=== PATIENT | female | born 1965 | race Caucasian/White ===

== ENCOUNTER 2017-07-22 15:50 | Observation (INO) ==
[2017-07-22] MEDS ORDERED: Aspirin 81 MG TAB.CHEW PO ONE (15:53)
--- NOTE | 2017-07-22 16:00 | Emergency Department Note ---
Disposition Clinical Impression: Chest pain of uncertain etiology Disposition: Home, Self-Care Condition: Fair Time of Disposition: 18:51 Chest Pain HPI - General Chief Complaint: ED Chest Pain Stated Complaint: CHEST PAIN Time Seen by Provider: 07/22/17 15:52 Source: patient Limitations: no limitations Vital Signs Reviewed: Yes Nursing Notes Reviewed: Yes - History of Present Illness HPI Narrative: Mrs. Barajas, a 51yo female, presents from home via EMS for evaluation of chest pain. Abrupt in onset just prior to arrival when she was having physical therapy at home. She stood up, felt dizzy, nauseous, vomited 1 (nonbloody, nonbilious), chills, and experienced a chest heaviness as well as a tingling sensation from her left sternum across her left chest down her left arm. The tingling sensation is reminiscent of her previous MN; stent placed 4 weeks ago. PMH: CHF, COPD on home breathing treatments not requiring home oxygen, GERD, hypertension, hyperlipidemia, chronic kidney disease, hypothyroidism, osteoporosis, fibromyalgia Antiplatelet: Plavix Anticoagulant: None ROS: Positive: As above Negative: Fever, chest palpitations, back pain, abdominal pain, headache Severity scale (1-10): 7 - Related Data Home Medications Medication Instructions Recorded Confirmed Aspirin Enteric Coated [Aspirin EC] 81 mg PO QAM 05/20/15 07/22/17 ClonazePAM [Klonopin] 1 mg PO BID 05/20/15 07/22/17 Cyanocobalamin (Vitamin B-12) 250 mcg PO DAILY 05/20/15 07/22/17 [Vitamin B-12] Escitalopram [Lexapro] 10 mg PO QAM 05/20/15 07/22/17 Esomeprazole Magnesium [Nexium] 40 mg PO QAM 05/20/15 07/22/17 Guaifenesin [Mucinex] 1,200 mg PO Q12H PRN 05/20/15 07/22/17 Loperamide [Imodium] 2 mg PO AD PRN 05/20/15 07/22/17 Losartan [Cozaar] 50 mg PO BID 05/20/15 07/22/17 Oxycodone HCl/Acetaminophen 1 tab PO Q8H PRN 05/20/15 07/22/17 [Percocet 7.5-325 mg Tablet] Promethazine [Phenergan] 25 mg PO Q6HR PRN 05/20/15 07/22/17 Tizanidine [Zanaflex] 4 mg PO TID PRN 05/20/15 07/22/17 Clopidogrel [Plavix] 75 mg PO DAILY 05/21/15 07/22/17 Potassium Chloride 20 meq PO QAM 08/19/15 07/22/17 Butalbital/Aspirin/Caffeine 1 tab PO Q6H PRN 07/01/16 07/22/17 [Fiorinal 50-325-40 mg Capsule] Gabapentin [Neurontin] 200 mg PO TID 07/01/16 07/22/17 Levothyroxine [Synthroid] 100 mcg PO QAM 07/01/16 07/22/17 Meclizine [Antivert] 25 mg PO BID PRN 07/01/16 07/22/17 Potassium Chloride [Klor-Con 10 meq PO QPM 07/01/16 07/22/17 Sprinkle] Rosuvastatin [Crestor] 20 mg PO HS 07/01/16 07/22/17 Previous Rx's Medication Instructions Recorded Albuterol Neb [AccuNeb] 1.25 mg IH TID PRN 28 Days #120 06/07/17 vial.neb Furosemide [Lasix] 40 mg PO DAILY #30 tablet 06/07/17 Levalbuterol HCl [Xopenex Neb] 1.25 mg IH Q6H PRN #30 vial.neb 06/07/17 cloNIDine HCl [Clonidine HCl] 0.1 mg PO TID #0 06/07/17 hydrALAZINE [HydrALAZINE] 50 mg PO Q8HR #90 tablet 06/07/17 hydroCHLOROthiazide 25 mg PO DAILY #30 tablet 06/07/17 [Hydrochlorothiazide] Allergies Allergy/AdvReac Type Severity Reaction Status Date / Time codeine Allergy Anaphylaxis Verified 02/17/16 11:36 olmesartan [From Benicar] AdvReac Nausea Verified 07/01/16 18:35 All systems ED: reviewed and negative except as stated. Review of Systems: As Per HPI Chest Pain PMH - Past Medical History Medical history: Reports: arthritis, CHF, COPD, fibromyalgia, GERD, GI bleed, hyperlipidemia, hypertension, osteoporosis, renal disease, thyroid disease, other Surgical history: Reports: angioplasty/stent, hysterectomy, orthopedic, other, other Psychiatric history: Reports: anxiety, depression - Social History Smoking Status: Former smoker Alcohol use: Reports: none Drug use: Reports: none Physical Exam Vital Signs Reviewed General: Patient is alert, oriented, and in mild respiratory distress-using mild accessory muscles. She appears fatigued and tired. HEENT: No facial asymmetry. Head is normocephalic and atraumatic. Oral mucosa moist. Trachea midline. Cardiovascular: Heart regular rate and rhythm without clicks, rubs, gallops, or murmurs. No JVD. PMI nondisplaced. Lateral radial pulses 2/4 equal. No pedal edema. Respiratory: Symmetric chest rise with good respiratory effort. Bilateral breath sounds are clear without wheezing, crackles, or rhonchi. Abdomen: Bowel sounds present normoactive x-4 quadrants. Abdomen is soft, nondistended, and nontender. No organomegaly noted. Neuro: GCS 15. Skin: Warm, dry, intact Psych: Patient's affect is appropriate for situation. - General Limitations: no limitations General appearance: alert, in no apparent distress Course Course Narrative: Symptoms concerning for ACS. After 3 sublingual nitroglycerin, patient's chest pain has resolved however the chest pressure persists. Next Initial troponin is 0.02; the upper limit of normal. EKG unremarkable compared to previous. Chest x-ray negative per radiology read. 18:09 Spoke with [facility], Dr. Perkins. She recommends against heparanizing at this time as patient's troponin is below upper limits of normal and there are no EKG changes. She is in agreement with aspirin therapy at this time. I discussed the patient with the admitting hospitalist, Dr. Kohli, who agrees to accept the patient for continued evaluation and management. Patient's chest pain remains gone however her chest heaviness persists. She is hypertensive in the 180s. Will begin nitro drip in an attempt to control her blood pressure eliminate her chest pressure. Patient notes, prior to the catheterization, she had a history of hypertension. Since catheterization, her blood pressure has been labile going both hypotensive and hypertensive. She has a headache with her hypertension today which is identical to previous hypertensive headaches. Vital Signs Temperature 98.5 F 07/22/17 15:51 Pulse Rate 65 07/22/17 15:51 Respiratory Rate 18 07/22/17 15:51 Blood Pressure 143/84 07/22/17 15:51 O2 Sat by Pulse Oximetry 99 07/22/17 15:51 Temperature 98.5 F 07/22/17 15:51 Pulse Rate 72 07/22/17 18:30 Respiratory Rate 18 07/22/17 18:30 Blood Pressure 115/100 07/22/17 18:30 O2 Sat by Pulse Oximetry 98 07/22/17 18:30 Oxygen Delivery Oxygen Delivery Nasal Cannula Chest Pain - Medical Records Medical records reviewed: Yes I reviewed the patient's medical records. - Lab Data Lab results reviewed: Yes I reviewed the patient's lab results. Result diagrams: 07/22/17 16:15 07/22/17 16:15 Lab Results 07/22/17 07/22/17 07/22/17 Range/Units 16:15 16:15 16:15 WBC 6.8 (4.3-11.1) K/mcL RBC 4.64 (3.82-4.97) M/mcL Hgb 14.4 (11.5-15.4) g/dL Hct 43.1 (35.3-44.9) % MCV 92.9 (83.0-100.0) fL MCH 31.0 (28.0-33.3) pg MCHC 33.4 (31.6-35.5) g/dL RDW 13.9 (11.5-14.5) % Plt Count 263 (140-400) K/mcL MPV 9.3 L (9.4-12.4) fL Immature Gran % 0.3 (0-4) % Seg Neutrophils % 48.2 % Lymphocytes % 44.2 % Monocytes % 4.9 % Eosinophils % 1.8 % Basophils % 0.6 % Neutrophils # 3.3 (1.6-8.9) K/mcL Lymphocytes # 3.0 (0.6-4.6) K/mcL Monocytes # 0.3 (0.0-1.3) K/mcL Eosinophils # 0.1 (0.0-0.6) K/mcL Basophils # 0.0 (0.0-0.2) K/mcL APTT 67.3 H (26.0-36.0) Seconds Sodium (136-145) mEq/L Potassium (3.5-4.5) mEq/L Chloride (98-109) mEq/L Carbon Dioxide (19-29) mEq/L BUN (7-20) mg/dL Creatinine (0.57-1.11) mg/dL Est GFR ( Amer) (> 60) Est GFR (Non-Af Amer) (> 60) BUN/Creatinine Ratio (6-26) Glucose (70-99) mg/dL Calculated Osmolality (280-300) Calcium (8.6-10.8) mg/dL Troponin I (0-0.03) ng/mL B-Natriuretic Peptide 16 (0-100) pg/mL 07/22/17 07/22/17 Range/Units 16:15 16:15 WBC (4.3-11.1) K/mcL RBC (3.82-4.97) M/mcL Hgb (11.5-15.4) g/dL Hct (35.3-44.9) % MCV (83.0-100.0) fL MCH (28.0-33.3) pg MCHC (31.6-35.5) g/dL RDW (11.5-14.5) % Plt Count (140-400) K/mcL MPV (9.4-12.4) fL Immature Gran % (0-4) % Seg Neutrophils % % Lymphocytes % % Monocytes % % Eosinophils % % Basophils % % Neutrophils # (1.6-8.9) K/mcL Lymphocytes # (0.6-4.6) K/mcL Monocytes # (0.0-1.3) K/mcL Eosinophils # (0.0-0.6) K/mcL Basophils # (0.0-0.2) K/mcL APTT (26.0-36.0) Seconds Sodium 140 (136-145) mEq/L Potassium 3.4 L (3.5-4.5) mEq/L Chloride 105 (98-109) mEq/L Carbon Dioxide 27 (19-29) mEq/L BUN 16 (7-20) mg/dL Creatinine 0.69 (0.57-1.11) mg/dL Est GFR ( Amer) > 60 (> 60) Est GFR (Non-Af Amer) > 60 (> 60) BUN/Creatinine Ratio 23 (6-26) Glucose 94 (70-99) mg/dL Calculated Osmolality 291 (280-300) Calcium 8.9 (8.6-10.8) mg/dL Troponin I 0.02 (0-0.03) ng/mL B-Natriuretic Peptide (0-100) pg/mL - Radiology Data Radiology results reviewed: Yes I reviewed the patient's radiology results. Chest X-Ray 07/22/17 15:53 IMPRESSION: No acute process. D/ / Jasmin Craven MD / Jasmin Craven MD Interpreting Provider: Jasmin Craven MD - EKG Data EKG attestation: Yes I reviewed and interpreted this EKG. EKG results narrative: EKG dated 22 July 2017 at 15:56 interpreted as sinus rhythm with a rate of 62. Normal intervals DE 169, QRS 82, QT/QTC 407/413. Normal intervals. Low amplitude T waves in precordial leads. T-wave inversion in V1 present on comparative EKG. Nonspecific ST-T changes. Compared to previous EKG dated shows no acute ischemic changes. Heart Score - Score History: Moderately Suspicious EKG: Normal Age: 45-65 Risk Factors: Equal/Greater than 3 risk factor or history of atherosclerotic disease Troponin: Less than normal limit HEART Score Total: 4 Attestation Statement - Attestation Attestation: I examined this patient and my medical decision-making was reviewed with the Resident Physician. I agree with the documented findings, disposition and treatment plan as described except to the extent set forth below. Patient to the ED by a chest pressure. Short of breath and nauseated with it. History coronary disease with stent placement a few weeks ago. On exam she is uncomfortable and in no distress. Heart regular and lungs are clear. Plan. Cardiac workup. Patient has a few anteroseptal ST depressions. Posterior EKG performed with no elevations. Will admit.
[2017-07-22] MEDS: Nitroglycerin 0.4 MG TAB.SUBL SL ONE ×3 (16:03→16:32)
[2017-07-22 16:36] LABS: Basophils % 0.6 %; Eosinophils # 0.1 K/mcL (0.0-0.6); Eosinophils % 1.8 %; Hematocrit 43.1 % (35.3-44.9); Hemoglobin 14.4 g/dL (11.5-15.4); Immature Granulocytes % 0.3 % (0-4); Lymphocytes % 44.2 %; Mean Corpuscular HGB Conc 33.4 g/dL (31.6-35.5); Mean Corpuscular Volume 92.9 fL (83.0-100.0); Mean Platelet Volume 9.3 fL (9.4-12.4); Monocytes # 0.3 K/mcL (0.0-1.3); Monocytes % 4.9 %; Neutrophils # 3.3 K/mcL (1.6-8.9); Platelet Count 263 K/mcL (140-400); Red Blood Count 4.64 M/mcL (3.82-4.97); Red Cell Distribution Width 13.9 % (11.5-14.5); Segmented Neutrophils % 48.2 %
[2017-07-22 16:49] LABS: BUN/Creatinine Ratio 23 (6-26); Blood Urea Nitrogen 16 mg/dL (7-20); Calcium 8.9 mg/dL (8.6-10.8); Carbon Dioxide 27 mEq/L (19-29); Chloride 105 mEq/L (98-109); Glucose 94 mg/dL (70-99); Osmolality,Calculated 291 (280-300); Potassium 3.4 mEq/L (3.5-4.5); Sodium 140 mEq/L (136-145); eGFR For African Americans > 60 (> 60); eGFR For Non-African Americans > 60 (> 60)
[2017-07-22] MEDS ORDERED: Nitroglycerin 25 MG/250 ML INFUS..BTL IVC SCH ×2 (18:15→18:45)
[2017-07-23] MEDS: *HR* OxyCODONE/APAP 7.5/325 TABLET PO PRN ×3 (00:29→21:36)
[2017-07-23] MEDS: Acetaminophen/Butalbital/CaffeineTABLET PO PRN (00:29)
[2017-07-23] MEDS: clonazePAM 1 MG TABLET PO PRN ×4 (01:32→21:36)
--- NOTE | 2017-07-23 02:09 | Internal Med History&Physical ---
Date of Encounter: 07/23/17 Time of Encounter: 11:00 Assessment and Plan (1) Chest pain Current visit: No Status: Acute -First set of cardiac biomarkers are negative. -Will monitor on telemetry -Stress test ordered for the morning Qualifiers: Chest pain type: unspecified Qualified Code(s): R07.9 - Chest pain, unspecified (2) Hypertension Current visit: No Status: Chronic -Blood pressures controlled; continue home medications. Qualifiers: Hypertension type: essential hypertension Qualified Code(s): I10 - Essential (primary) hypertension (3) GERD (gastroesophageal reflux disease) Current visit: No Status: Chronic -Continue home PPI. Qualifiers: Esophagitis presence: esophagitis presence not specified Qualified Code(s) : K21.9 - Gastro-esophageal reflux disease without esophagitis (4) Hyperlipidemia Current visit: No Status: Chronic -Continue statin. Qualifiers: Hyperlipidemia type: unspecified Qualified Code(s): E78.5 - Hyperlipidemia , unspecified (5) Hypothyroidism Current visit: No Status: Chronic -Continue home dose of levothyroxine. Qualifiers: Hypothyroidism type: unspecified Qualified Code(s): E03.9 - Hypothyroidism , unspecified (6) Lupus Current visit: No Status: Chronic Stable; continue to monitor. Qualifiers: Systemic lupus erythematosus organ involvement: unspecified Qualified Code( s): M32.9 - Systemic lupus erythematosus, unspecified (7) COPD (chronic obstructive pulmonary disease) Current visit: No Status: Acute -Stable; continue home medications Qualifiers: Emphysema type: unspecified Qualified Code(s): J43.9 - Emphysema, unspecified (8) DVT prophylaxis Current visit: No Status: Acute -Subcutaneous heparin Internal Medicine - H&P: HPI Chief complaint: Chest pain Admitted From: Home Plans for Post Hospital Care: Home History of present illness: Patient is a 51-year-old female with past medical history significant for ischemic cardiomyopathy, hypertension, COPD, CKD, hypothyroid and SLE who presents to the ER on 07/22/17 with chest pain. Patient reports of having substernal chest pressure but without any radiation or provoking/relieving factors. She also denies any associated symptoms. Patient reports symptoms are similar to her last ME approximately 4 weeks ago where she had a stent placed. Patient called EMS and was brought in to the emergency room for further evaluation. In the ER, first set of cardiac biomarkers were negative and chest x-ray showed no acute cardiopulmonary findings. Patient will be admitted to the medical floor for ACS rule out. Past Med Surg Social Fam HX - Past Medical History Medical history: arthritis, CHF, COPD, fibromyalgia, GERD, GI bleed, hyperlipidemia, hypertension, osteoporosis, renal disease, thyroid disease, other Psychiatric history: anxiety, depression - Past Surgical History Surgical History: angioplasty/stent, hysterectomy, orthopedic, other, other - Social History Smoking Status: Former smoker Smokeless Tobacco Status: No Alcohol use: none Drug use: none - Family History Father Living Status: Mother Adopted: No Family Member Ethnicity: Non- Living Status: Still Living Hx Family Cardiac Disorders: Yes (stroke) Hx Family Respiratory Disorders: No Hx Family Cancer: Yes (Skin) Hx Family GI Disorders: Yes (diverticulosis) Hx Family Endocrine Disorder: Yes (lupus, addisons) Hx Family Neuromuscular Disorders: No Hx Family Neurologic Disorders: No Hx Family HEENT Disorders: No Hx Family Autoimmune Disorders: Yes (Rheumatory Arthritis, Seasonal Allergies, Lupus) Internal Medicine - H&P: Meds Aspirin Enteric Coated [Aspirin EC] 81 mg PO QAM 05/20/15 [History] ClonazePAM [Klonopin] 1 mg PO BID 05/20/15 [History] Cyanocobalamin (Vitamin B-12) [Vitamin B-12] 250 mcg PO DAILY 05/20/15 [History] Escitalopram [Lexapro] 10 mg PO QAM 05/20/15 [History] Esomeprazole Magnesium [Nexium] 40 mg PO QAM 05/20/15 [History] Guaifenesin [Mucinex] 1,200 mg PO Q12H PRN 05/20/15 [History] Loperamide [Imodium] 2 mg PO AD PRN 05/20/15 [History] Losartan [Cozaar] 50 mg PO BID 05/20/15 [History] Oxycodone HCl/Acetaminophen [Percocet 7.5-325 mg Tablet] 1 tab PO Q8H PRN [History] Promethazine [Phenergan] 25 mg PO Q6HR PRN 05/20/15 [History] Tizanidine [Zanaflex] 4 mg PO TID PRN 05/20/15 [History] Clopidogrel [Plavix] 75 mg PO DAILY 05/21/15 [History] Potassium Chloride 20 meq PO QAM 08/19/15 [History] Butalbital/Aspirin/Caffeine [Fiorinal 50-325-40 mg Capsule] 1 tab PO Q6H PRN [History] Gabapentin [Neurontin] 200 mg PO TID 07/01/16 [History] Levothyroxine [Synthroid] 100 mcg PO QAM 07/01/16 [History] Meclizine [Antivert] 25 mg PO BID PRN 07/01/16 [History] Potassium Chloride [Klor-Con Sprinkle] 10 meq PO QPM 07/01/16 [History] Rosuvastatin [Crestor] 20 mg PO HS 07/01/16 [History] Albuterol Neb [AccuNeb] 1.25 mg IH TID PRN 28 Days #120 vial.neb 06/07/17 [Rx] Furosemide [Lasix] 40 mg PO DAILY #30 tablet 06/07/17 [Rx] Levalbuterol HCl [Xopenex Neb] 1.25 mg IH Q6H PRN #30 vial.neb 06/07/17 [Rx] cloNIDine HCl [Clonidine HCl] 0.1 mg PO TID #0 06/07/17 [Rx] hydrALAZINE [HydrALAZINE] 50 mg PO Q8HR #90 tablet 06/07/17 [Rx] hydroCHLOROthiazide [Hydrochlorothiazide] 25 mg PO DAILY #30 tablet 06/07/17 [Rx ] Amitriptyline [Elavil] 25 mg PO HS 07/23/17 [History] 3 Allergy/AdvReac Type Severity Reaction Status Date / Time codeine Allergy Anaphylaxis Verified 02/17/16 11:36 olmesartan [From Benicar] AdvReac Nausea Verified 07/01/16 18:35 All Systems PM: A 10-system review of systems was performed and is negative for pertinent findings except as documented above in the HPI. - Constitutional Vitals: Temp Pulse Resp BP Pulse Ox 97.5 F L 116 16 116/79 97 07/23/17 01:29 07/23/17 01:29 07/23/17 01:29 07/23/17 01:29 07/23/17 01:29 General appearance: Present: A&O X 3 - Head Head exam: Present: atraumatic, normocephalic - ENT ENT exam: Present: mucous membranes moist - Respiratory Respiratory exam: Present: CTAB. Absent: accessory muscle use, rales, rhonchi, wheezes - Cardiovascular Cardiovascular exam: Present: RRR, +S1, +S2. Absent: diastolic murmur, gallop, rubs, systolic murmur - GI/Abdominal GI/Abdominal exam: Present: normal bowel sounds, soft, no peritoneal signs. Absent: distended, tenderness - Extremities Exam Extremities exam: Absent: pedal edema - Neurological Exam Neurological exam: Present: oriented X3 - Psychiatric Psychiatric exam: Present: normal mood - Skin Skin exam: Present: normal color Internal Med - H&P Results - Labs CBC & Chem 7: 07/22/17 16:15 07/22/17 16:15 Labs: Cardiac Enzymes 07/22/17 Range/Units 22:37 Troponin I 0.01 (0-0.03) ng/mL
[2017-07-23] MEDS ORDERED: Naloxone 0.4 MG/ML INJ IVP PRN (02:16)
[2017-07-23] MEDS ORDERED: *HR* OxyCODONE/APAP 7.5/325 TABLET PO PRN (02:30)
[2017-07-23] MEDS ORDERED: Albuterol Neb 1.25 MG/3 ML VIAL IH PRN (02:30)
[2017-07-23] MEDS: Levalbuterol Neb 1.25 MG/3 ML IH SCH ×4 (03:50→21:33)
[2017-07-23 05:56] LABS: Basophils # 0.1 K/mcL (0.0-0.2); Basophils % 1.1 %; Eosinophils # 0.1 K/mcL (0.0-0.6); Eosinophils % 2.7 %; Hematocrit 41.3 % (35.3-44.9); Hemoglobin 13.4 g/dL (11.5-15.4); Immature Granulocytes % 0.2 % (0-4); Lymphocytes % 57.3 %; Mean Corpuscular HGB Conc 32.4 g/dL (31.6-35.5); Mean Corpuscular Hemoglobin 30.4 pg (28.0-33.3); Mean Corpuscular Volume 93.7 fL (83.0-100.0); Mean Platelet Volume 9.3 fL (9.4-12.4); Monocytes # 0.4 K/mcL (0.0-1.3); Neutrophils # 1.7 K/mcL (1.6-8.9); Platelet Count 223 K/mcL (140-400); Red Blood Count 4.41 M/mcL (3.82-4.97); Red Cell Distribution Width 13.9 % (11.5-14.5); Segmented Neutrophils % 31.7 %
[2017-07-23 06:21] LABS: BUN/Creatinine Ratio 24 (6-26); Blood Urea Nitrogen 17 mg/dL (7-20); Calcium 8.6 mg/dL (8.6-10.8); Carbon Dioxide 27 mEq/L (19-29); Chloride 106 mEq/L (98-109); Glucose 100 mg/dL (70-99); Osmolality,Calculated 290 (280-300); Potassium 3.6 mEq/L (3.5-4.5); Sodium 139 mEq/L (136-145); eGFR For African Americans > 60 (> 60); eGFR For Non-African Americans > 60 (> 60)
[2017-07-23] MEDS ORDERED: clonazePAM 1 MG TABLET PO SCH (09:00)
[2017-07-23] MEDS: hydroCHLOROthiazide 25 MG TABLET PO SCH (09:04)
[2017-07-23] MEDS: hydrALAZINE 25 MG TABLET PO SCH ×2 (09:04→16:36)
[2017-07-23] MEDS: Furosemide 40 MG TABLET PO SCH (09:04)
[2017-07-23] MEDS: Aspirin Enteric Coated 81 MG Tablet PO SCH (09:04)
[2017-07-23] MEDS: Gabapentin 100 MG CAPSULE PO SCH ×3 (09:04→21:33)
[2017-07-23] MEDS: cloNIDine HCl 0.1 MG TABLET PO SCH ×2 (09:04→14:30)
--- NOTE | 2017-07-23 15:19 | Cardiology Consult Note ---
Date of Encounter: 07/23/17 Time of Encounter: 15:18 Assessment and Plan (1) Chest pain Current Visit: No Status: Acute Atypical chest pain symptoms. S/p recent PCI to the RCA. Moderate disease remaining. Troponin negative. EKG with no acute changes. Recommend optimizing medical therapy. No further cardiac testing. Add norvasc and wean off clonidine. No imdur due to chronic headaches and vertigo. Continue asa, statin, and plavix. Not on beta-errol due to bradycardia. Qualifiers: Chest pain type: unspecified Qualified Code(s): R07.9 - Chest pain, unspecified (2) CAD (coronary artery disease) Current Visit: Yes Status: Acute S/p PCI to the RCA 05/2017. Moderate non-obstructive disease remaining. Continue asa, plavix, statin, and bb. Qualifiers: Coronary Disease-Associated Artery/Lesion type: [place] artery [place] vs. transplanted heart: [place] heart Associated angina: angina presence unspecified Qualified Code(s): I25.10 - Atherosclerotic heart disease of [place] coronary artery without angina pectoris (3) Hypertension Current Visit: No Status: Chronic Recent stay for malignant hypertension. Now normo-tensive to hypotensive. Adding norvasc for anti-anginal effects. Will decrease clonidine due to low HR in the upper 40's at times. Consider discontinuing by weaning off. Change to BID. Qualifiers: Hypertension type: essential hypertension Qualified Code(s): I10 - Essential (primary) hypertension (4) Bradycardia Current Visit: No Status: Chronic Known bradycardia seen during previous admission. She does have h/o dizziness for many years. BB held and high dose clonidine decreased. Recommend weaning of clonidine. Telemetry review shows avg HR 56 bpm. min HR 46 bpm at 0256 am. No pauses. Continue to monitor. Out-pt f/u. Discussion w patient/family: The assessment and plan as outlined above was discussed with the patient and/or family members who expressed understanding and agreement. All questions were answered. Thank you for involving us in the care of your patient. Please call with any questions. History of Present Illness Consult date: 07/23/17 Requesting physician: Felicia Gao Consult reason: chest pain Chief complaint: Pupil dilation, dizziness, chest pain History of present illness: Ms. Barajas is a 51 year old female with a h/o recent NSTEMI s/p PCI to her RCA , malignant HTN, CKD, SLE, COPD, and hypothyroidism who presented with the c/o dizziness and left shoulder pain. She was working with physical therapy when she became lightheaded. Her home health nurse and reported that she looked unwell. Her pupils were very large. She reports vision changes. Stated that she has lost her peripheral vision. She states that her dizziness and vision changes are chronic. She has frequent migraines and vertigo. She takes fiorcet and percocet. During her stay she noted left shoulder pain that was intermittent over the past week. The pain is not like her recent [place]. Pain occurs at rest. Denies aggravating factors. Pain only lasts couple of seconds. Recent cardiac testing: [facility] completed 05/2017- S/p PTCA and Maia to the RCA. 50% stenosis in the mLAD remaining. TTE 05/25/17-LVEF 65%. The LV apex is akinetic. All other myocardial segments demonstrate normal wall motion. Mild left ventricular diastolic dysfunction. Normal right ventricular size and function. No significant valvular dysfunction. Past Med Surg Social Fam HX - Past Medical History Attestation: Yes The following information was validated with the patient. Medical history: arthritis, CHF, COPD, fibromyalgia, GERD, GI bleed, hyperlipidemia, hypertension, osteoporosis, renal disease, thyroid disease, other Psychiatric history: anxiety, depression - Past Surgical History Surgical History: angioplasty/stent, hysterectomy, orthopedic, other, other - Social History Smoking Status: Former smoker Smokeless Tobacco Status: No Alcohol use: none Drug use: none - Family History Father Living Status: Mother Adopted: No Family Member Ethnicity: Non- Living Status: Still Living Hx Family Cardiac Disorders: Yes (stroke) Hx Family Respiratory Disorders: No Hx Family Cancer: Yes (Skin) Hx Family GI Disorders: Yes (diverticulosis) Hx Family Endocrine Disorder: Yes (lupus, addisons) Hx Family Neuromuscular Disorders: No Hx Family Neurologic Disorders: No Hx Family HEENT Disorders: No Hx Family Autoimmune Disorders: Yes (Rheumatory Arthritis, Seasonal Allergies, Lupus) Medications and Allergies Aspirin Enteric Coated [Aspirin EC] 81 mg PO QAM 05/20/15 [History] ClonazePAM [Klonopin] 1 mg PO TID 05/20/15 [History] Cyanocobalamin (Vitamin B-12) [Vitamin B-12] 250 mcg PO DAILY 05/20/15 [History] Escitalopram [Lexapro] 10 mg PO QAM 05/20/15 [History] Esomeprazole Magnesium [Nexium] 40 mg PO QAM 05/20/15 [History] Guaifenesin [Mucinex] 1,200 mg PO Q12H PRN 05/20/15 [History] Loperamide [Imodium] 2 mg PO AD PRN 05/20/15 [History] Losartan [Cozaar] 50 mg PO BID 05/20/15 [History] Oxycodone HCl/Acetaminophen [Percocet 7.5-325 mg Tablet] 1 tab PO Q8H PRN [History] Promethazine [Phenergan] 25 mg PO Q6HR PRN 05/20/15 [History] Tizanidine [Zanaflex] 4 mg PO TID PRN 05/20/15 [History] Clopidogrel [Plavix] 75 mg PO DAILY 05/21/15 [History] Potassium Chloride 20 meq PO QAM 08/19/15 [History] Butalbital/Aspirin/Caffeine [Fiorinal 50-325-40 mg Capsule] 1 tab PO Q6H PRN [History] Gabapentin [Neurontin] 200 mg PO TID 07/01/16 [History] Levothyroxine [Synthroid] 100 mcg PO QAM 07/01/16 [History] Meclizine [Antivert] 25 mg PO BID PRN 07/01/16 [History] Potassium Chloride [Klor-Con Sprinkle] 10 meq PO QPM 07/01/16 [History] Rosuvastatin [Crestor] 20 mg PO HS 07/01/16 [History] Albuterol Neb [AccuNeb] 1.25 mg IH TID PRN 28 Days #120 vial.neb 06/07/17 [Rx] Furosemide [Lasix] 40 mg PO DAILY #30 tablet 06/07/17 [Rx] Levalbuterol HCl [Xopenex Neb] 1.25 mg IH Q6H PRN #30 vial.neb 06/07/17 [Rx] cloNIDine HCl [Clonidine HCl] 0.1 mg PO TID #0 06/07/17 [Rx] hydrALAZINE [HydrALAZINE] 50 mg PO Q8HR #90 tablet 06/07/17 [Rx] hydroCHLOROthiazide [Hydrochlorothiazide] 25 mg PO DAILY #30 tablet 06/07/17 [Rx ] Amitriptyline [Elavil] 25 mg PO HS 07/23/17 [History] 3 Allergy/AdvReac Type Severity Reaction Status Date / Time codeine Allergy Anaphylaxis Verified 02/17/16 11:36 olmesartan [From Benicar] AdvReac Nausea Verified 07/01/16 18:35 All Systems Review: A 10-system review of systems was performed and is negative for pertinent findings except as documented above in the HPI. Physical Examination Vital Signs, Last 4 Hours Temp Pulse Resp BP Pulse Ox 07/23/17 15:00 97.8 F 51 16 120/78 97 General: Conversant, No Apparent Distress HEENT: Atraumatic, Normocephaly, Mucus Membranes Moist Neck: No JVD, Normal carotid pulses Cardiac: Reg Rate and Rhythm, Normal S1 and S2, No Murmur Lungs: Normal Breath Sounds, No Wheeze, Rales, Rhonchi Neuro: Alert and responsive, No focal deficits noted Abdomen: Soft, Non-Tender Skin: No rashes noted on visualized skin Musculoskeletal: No Chest Wall Tenderness Extremities: No Clubbing, No Cyanosis, No Edema, Normal Pulses Results 07/23/17 05:41 07/23/17 05:41 Lab Results 07/22/17 07/23/17 07/23/17 22:37 02:05 05:41 WBC 5.3 Hgb 13.4 Hct 41.3 Plt Count 223 Sodium Potassium Chloride Carbon Dioxide BUN Creatinine Glucose Calcium Troponin I 0.01 0.00 07/23/17 05:41 WBC Hgb Hct Plt Count Sodium 139 Potassium 3.6 Chloride 106 Carbon Dioxide 27 BUN 17 Creatinine 0.70 Glucose 100 H Calcium 8.6 Troponin I - Imaging and Cardiology Echo: report reviewed Cardiac cath: report reviewed - EKG Interpretation EKG results cardiology: personally reviewed (Sr with no acute ST changes) Consult Discharge Plan - Plan Referrals: Shelton Galaviz MD [Primary Care Provider] -
--- NOTE | 2017-07-23 15:39 | Internal Med Progress Note ---
Date of Encounter: 07/23/17 Time of Encounter: 10:30 - Assessment and plan (1) Chest pain Current Visit: Yes Status: Acute Assessment and plan: Pt reports chest pain last night while at home, returned to the ED for evaluation. States that the pain is the same as her [place] 4 weeks ago. Pt had stent placed at that time. Pain is in left inferior chest/rib area and is reproducible with palpation, inspiration and movement. Stress test was ordered, however, pt takes Fiorcet and states that she did not think that she would be able to be without it for 24 hours to have the stress test. Cardiology was consulted and recommend optimizing therapy and no further testing. They have added norvasc and will wean her off of the Clonidine The recommend no Imdur due to chronic headaches and vertigo. Continue ASA, statin, and Plavix, no BB due to bradycardia. Will keep pt overnight to monitor vitals and effectiveness of medications. I have given her one dose of Ibuprofen for chest wall pain. Continue telemetry Chest X-Ray 07/22/17 15:53 IMPRESSION: No acute process. D/ / Jasmin Craven MD / Jasmin Craven MD Interpreting Provider: Jasmin Craven MD Qualifiers: Chest pain type: unspecified Qualified Code(s): R07.9 - Chest pain, unspecified (2) Hypertension Current Visit: Yes Status: Chronic Assessment and plan: Well controlled. Continue home medications. Continue to monitor. Qualifiers: Hypertension type: essential hypertension Qualified Code(s): I10 - Essential (primary) hypertension (3) Bradycardia Current Visit: Yes Status: Chronic Assessment and plan: Chronic bradycardia. Cardiology on board. Continue telemetry. (4) CAD (coronary artery disease) Current Visit: Yes Status: Acute Assessment and plan: REcent stent 4 weeks ago. Continue telemetry. Plan as above. Qualifiers: Coronary Disease-Associated Artery/Lesion type: [place] artery [place] vs. transplanted heart: [place] heart Associated angina: angina presence unspecified Qualified Code(s): I25.10 - Atherosclerotic heart disease of [place] coronary artery without angina pectoris (5) COPD (chronic obstructive pulmonary disease) Current Visit: Yes Status: Acute Assessment and plan: No acute exacerbation. Continue 02 as needed to maintain sats > 92%, nebulizers. Pulse ox with vitals. Lungs are clear, diminished, poor inspiratory effort due to pain with inspiration. Qualifiers: Emphysema type: unspecified Qualified Code(s): J43.9 - Emphysema, unspecified (6) DVT prophylaxis Current Visit: Yes Status: Acute Assessment and plan: Early ambulation - Time Spent With Patient less than 15 minutes - Subjective Interval history: Pt was seen and assessed at bedside at 1030. Pt reports left lower chest/rib pain that is reproducible with palpation, movement, and deep inspiration. She reports associated SOB with pain. She denies recent or new cough, denies fever, but reports chills. She denies n/v/d, abdominal pain. She reports chronic headache that she takes Fiorcet for and she is concerned aht she will not be able to tolerate headache since she cannot have Fiorcet prior to stress test. - Constitutional Vitals: Temp Pulse Resp BP Pulse Ox 97.8 F 51 16 120/78 97 07/23/17 15:00 07/23/17 15:00 07/23/17 15:00 07/23/17 15:00 07/23/17 15:00 General appearance: Present: cooperative, A&O X 3, pleasant, no acute distress, answers questions appropriately - Head Head exam: Present: atraumatic, normal inspection, normocephalic - Eye Eye exam: Present: normal appearance, conjuntiva pink, sclera anicteric - Neck Neck exam general surgery: Present: supple, trachea midline. Absent: lymphadenopathy, tenderness - Respiratory Respiratory exam: Present: chest wall tenderness, decreased breath sounds, CTAB. Absent: accessory muscle use, rales, rhonchi, wheezes - Cardiovascular Cardiovascular exam: Present: RRR, +S1, +S2. Absent: diastolic murmur, gallop, rubs, systolic murmur - GI/Abdominal GI/Abdominal exam: Present: normal bowel sounds, soft, no peritoneal signs. Absent: distended, hepatomegaly, tenderness - Extremities Exam Extremities exam: Present: normal capillary refill, normal inspection, warm, radial pulses palpable and symmetrical. Absent: calf tenderness, cyanotic, pedal edema - Neurological Exam Neurological exam: Present: alert, oriented X3, no focal deficits. Absent: facial droop, speech deficit - Skin Skin exam: Present: dry, intact, normal color, warm. Absent: rash Internal Medicine: Result - Labs CBC & Chem 7: 07/23/17 05:41 07/23/17 05:41 Labs: Short CBC 07/23/17 Range/Units 05:41 WBC 5.3 (4.3-11.1) K/mcL Hgb 13.4 (11.5-15.4) g/dL Hct 41.3 (35.3-44.9) % Plt Count 223 (140-400) K/mcL Neutrophils # 1.7 (1.6-8.9) K/mcL BMP 07/23/17 05:41 Sodium 139 Potassium 3.6 Chloride 106 Carbon Dioxide 27 BUN 17 Creatinine 0.70 Glucose 100 H Calcium 8.6 Cardiac Enzymes 07/22/17 07/23/17 Range/Units 22:37 02:05 Troponin I 0.01 0.00 (0-0.03) ng/mL Consult Discharge Plan - Plan Referrals: Shelton Galaviz MD [Primary Care Provider] -
[2017-07-23] MEDS ORDERED: Ibuprofen 600 MG TABLET PO ONE (15:41)
--- NOTE | 2017-07-23 16:35 | Electrocardiograph Report ---
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
[2017-07-23] MEDS: amLODIPine 5 MG TABLET PO SCH (16:37)
[2017-07-24] MEDS: hydrALAZINE 25 MG TABLET PO SCH ×2 (00:26→09:45)
[2017-07-24] MEDS: Levalbuterol Neb 1.25 MG/3 ML IH SCH ×2 (04:59→10:57)
[2017-07-24] MEDS ORDERED: Regadenoson 0.4 MG/5 ML SYRINGE IVP ONE (06:21)
[2017-07-24 06:55] VITALS: BP 116/81
[2017-07-24] MEDS ORDERED: cloNIDine HCl 0.1 MG TABLET PO SCH (09:00)
--- NOTE | 2017-07-24 09:24 | Discharge Summary ---
Date of Encounter: 07/24/17 Time of Encounter: 08:25 - Discharge Diagnosis (1) Chest pain Priority: Primary Status: Acute Comments: Pt reports chest pain last night while at home, returned to the ED for evaluation. States that the pain is the same as her [place] 4 weeks ago. Pt had stent placed at that time. EKG was normal sinus rhythm with a rate of 62, OK interval 169, QRS 82, QTC 413. Chest x-ray was negative for any acute process. Troponins were negative 3. Pain is in left inferior chest/rib area and is reproducible with palpation, inspiration and movement. Stress test was ordered, however, pt takes Fiorcet and states that she did not think that she would be able to be without it for 24 hours to have the stress test. Cardiology was consulted and recommend optimizing therapy and no further testing. Pt reports that pain is "much better today" and she feels that the Norvasc has helped. 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 She has a follow up appointment with cardiology on 08/18. Per Cardiology: Atypical chest pain symptoms. S/p recent PCI to the RCA. Moderate disease remaining. Troponin negative. EKG with no acute changes. Recommend optimizing medical therapy. No further cardiac testing. Add norvasc 5mg po daily and wean off Clonidine, decreased to 0.1mg po BID. No imdur due to chronic headaches and vertigo. Continue asa, statin, and plavix. Not on beta-errol due to bradycardia. Chest X-Ray 07/22/17 15:53 IMPRESSION: No acute process. D/ / Jasmin Craven MD / Jasmin Craven MD Interpreting Provider: Jasmin Craven MD Qualifiers: Chest pain type: unspecified Qualified Code(s): R07.9 - Chest pain, unspecified (2) Hypertension Priority: Primary Status: Chronic Comments: Blood pressures been well controlled. We will be weaning her off the clonidine slowly, she has added Norvasc laterally for blood pressure control but for antianginal effect as well. She will continue her other home medications. Qualifiers: Hypertension type: essential hypertension Qualified Code(s): I10 - Essential (primary) hypertension (3) Bradycardia Priority: Secondary Status: Chronic Comments: She does not on a errol at this time due to bradycardia. Clonidine is being weaned. Pulse has increased, she is in the 60s now. (4) CAD (coronary artery disease) Priority: Secondary Status: Chronic Comments: Patient states the chest pain is significantly better today. Recent stent 4 weeks ago. Cardiology recommends no further testing at this time. She will follow up in the office with Dr. Fisher on August 18. Qualifiers: Coronary Disease-Associated Artery/Lesion type: [place] artery [place] vs. transplanted heart: [place] heart Associated angina: angina presence unspecified Qualified Code(s): I25.10 - Atherosclerotic heart disease of [place] coronary artery without angina pectoris (5) COPD (chronic obstructive pulmonary disease) Priority: Secondary Status: Chronic Comments: No acute exacerbation this visit. O2 sats are stable. Lungs are clear, diminished, increased inspiratory effort today due to decreased pain. She is in no distress, there is no wheezing, rales, rhonchi. Continue normal medications at home. Qualifiers: Emphysema type: unspecified Qualified Code(s): J43.9 - Emphysema, unspecified (6) DVT prophylaxis Priority: Secondary Status: Acute Comments: Early ambulation. - Discharge Medications Prescriptions: amLODIPine [Norvasc] 5 mg PO DAILY #30 tablet Home Medications: Aspirin Enteric Coated [Aspirin EC] 81 mg PO QAM 05/20/15 [History] ClonazePAM [Klonopin] 1 mg PO TID 05/20/15 [History] Cyanocobalamin (Vitamin B-12) [Vitamin B-12] 250 mcg PO DAILY 05/20/15 [History] Escitalopram [Lexapro] 10 mg PO QAM 05/20/15 [History] Esomeprazole Magnesium [Nexium] 40 mg PO QAM 05/20/15 [History] Guaifenesin [Mucinex] 1,200 mg PO Q12H PRN 05/20/15 [History] Loperamide [Imodium] 2 mg PO AD PRN 05/20/15 [History] Losartan [Cozaar] 50 mg PO BID 05/20/15 [History] Oxycodone HCl/Acetaminophen [Percocet 7.5-325 mg Tablet] 1 tab PO Q8H PRN [History] Promethazine [Phenergan] 25 mg PO Q6HR PRN 05/20/15 [History] Tizanidine [Zanaflex] 4 mg PO TID PRN 05/20/15 [History] Clopidogrel [Plavix] 75 mg PO DAILY 05/21/15 [History] Potassium Chloride 20 meq PO QAM 08/19/15 [History] Butalbital/Aspirin/Caffeine [Fiorinal 50-325-40 mg Capsule] 1 tab PO Q6H PRN [History] Gabapentin [Neurontin] 200 mg PO TID 07/01/16 [History] Levothyroxine [Synthroid] 100 mcg PO QAM 07/01/16 [History] Meclizine [Antivert] 25 mg PO BID PRN 07/01/16 [History] Potassium Chloride [Klor-Con Sprinkle] 10 meq PO QPM 07/01/16 [History] Rosuvastatin [Crestor] 20 mg PO HS 07/01/16 [History] Albuterol Neb [AccuNeb] 1.25 mg IH TID PRN 28 Days #120 vial.neb 06/07/17 [Rx] Furosemide [Lasix] 40 mg PO DAILY #30 tablet 06/07/17 [Rx] Levalbuterol HCl [Xopenex Neb] 1.25 mg IH Q6H PRN #30 vial.neb 06/07/17 [Rx] hydrALAZINE [HydrALAZINE] 50 mg PO Q8HR #90 tablet 06/07/17 [Rx] hydroCHLOROthiazide [Hydrochlorothiazide] 25 mg PO DAILY #30 tablet 06/07/17 [Rx ] Amitriptyline [Elavil] 25 mg PO HS 07/23/17 [History] amLODIPine [Norvasc] 5 mg PO DAILY #30 tablet 07/24/17 [Rx] cloNIDine HCl [CloNIDine HCl] 0.1 mg PO BID tablet 07/24/17 [Rx] Allergies/Adverse Reactions: 3 Allergy/AdvReac Type Severity Reaction Status Date / Time codeine Allergy Anaphylaxis Verified 02/17/16 11:36 olmesartan [From Benicar] AdvReac Nausea Verified 07/01/16 18:35 Date of admission: 07/22/17 18:00 Primary care physician: Shelton Galaviz MD Consults: 07/23/17 12:56 Consult to Cardiology [CONS] Routine Comment: Consulting Provider: Cardiology Kamryn Reason for Consult: assess for ability/need to stress Time Notified: 12:57 Call Completed: Yes Discharging clinician: Felicia Gao Anticipated date of discharge: 07/24/17 - Patient Status Disposition: Home, Self-Care Condition: Good Functional capacity at discharge: independent ambulation Overall status at discharge: patient is back to baseline - Discharge Instructions Follow Up With: Shelton Galaviz MD [Primary Care Provider] - Forms: ED Satisfaction Letter Additional Instructions: Please follow-up with her primary care provider in the next 7-10 days for a recheck. Please follow-up with cardiology as scheduled on August [address] Fisher. Cardiology has changed her clonidine to 0.1 mg twice daily, continue this dose for 7 days. After 7 days, take it once daily. Return to the emergency department as needed for any other problems or concerns , or if your symptoms return or worsen. Resume your normal activities as tolerated. Return to her normal diet as tolerated. Continue your other home medications. Your prescription for Norvasc has been sent to [facility]. - Diet and Activity Activity: increase activity as tolerated Diet: advance to your usual diet, low fat, low cholesterol Interval History: Please see assessment and plan for hospital course. Hospital course: Ms. Barajas is a 51 year old female - Time Spent with Patient Total time spent providing and/or coordinating discharge services: - Constitutional Vitals: Temp Pulse Resp BP Pulse Ox 98.1 F 66 16 116/81 96 07/24/17 06:52 07/24/17 06:52 07/24/17 06:52 07/24/17 06:52 07/24/17 06:52 General appearance: Present: cooperative, A&O X 3, pleasant, no acute distress, answers questions appropriately - Head Head exam: Present: atraumatic, normal inspection, normocephalic - Eye Eye exam: Present: normal appearance, conjuntiva pink, sclera anicteric - Neck Neck exam general surgery: Present: supple, trachea midline. Absent: lymphadenopathy - Respiratory Respiratory exam: Present: chest wall tenderness, CTAB. Absent: accessory muscle use, decreased breath sounds, rales, respiratory distress, rhonchi, wheezes - Cardiovascular Cardiovascular exam: Present: RRR, +S1, +S2. Absent: diastolic murmur, gallop, rubs, systolic murmur - GI/Abdominal GI/Abdominal exam: Present: normal bowel sounds, soft. Absent: distended, hepatomegaly, tenderness - Extremities Exam Extremities exam: Present: normal capillary refill, normal inspection, warm, radial pulses palpable and symmetrical. Absent: calf tenderness, cyanotic, pedal edema - Neurological Exam Neurological exam: Present: alert, oriented X3, no focal deficits. Absent: facial droop, speech deficit - Skin Skin exam: Present: dry, intact, normal color, warm. Absent: rash
[2017-07-24] MEDS: amLODIPine 5 MG TABLET PO SCH (09:45)
[2017-07-24] MEDS: Furosemide 40 MG TABLET PO SCH (09:45)
[2017-07-24] MEDS: hydroCHLOROthiazide 25 MG TABLET PO SCH (09:45)
[2017-07-24] MEDS: Aspirin Enteric Coated 81 MG Tablet PO SCH (09:45)
[2017-07-24] MEDS: *HR* OxyCODONE/APAP 7.5/325 TABLET PO PRN (09:48)
[2017-07-24] MEDS: Acetaminophen/Butalbital/CaffeineTABLET PO PRN (09:48)
[2017-07-24] MEDS: clonazePAM 1 MG TABLET PO PRN (09:49)
[2017-07-24] MEDS: Gabapentin 100 MG CAPSULE PO SCH (09:49)
--- NOTE | 2017-07-24 10:33 | Physician Discharge Referral ---
Home Health/Hosp Referral Info Provider in Charge Post Discharge: PCP - Diagnosis (1) Chest pain Priority: Primary Status: Acute (2) Hypertension Priority: Secondary Status: Chronic (3) Bradycardia Priority: Secondary Status: Chronic (4) CAD (coronary artery disease) Priority: Secondary Status: Chronic (5) COPD (chronic obstructive pulmonary disease) Priority: Secondary Status: Chronic (6) DVT prophylaxis Priority: Secondary Status: Acute - Respiratory Orders Oxygen / L per min (2L prn, titrate as needed to maintain sats > 92%.) Smoking Cessation: Smoking cessation has been advised. For more information, call the [place] Tobacco Quit Line at 6-768-QNVL-NOW. - Diet/Nutrition Diet/Nutrition Orders: Regular - Activity Activity Orders: Up ad tonia - Services Needed Following services are medically necessary services: Nursing, Home Health Aide - Transfer Medications Prescriptions: amLODIPine [Norvasc] 5 mg PO DAILY #30 tablet Home Medications: Aspirin Enteric Coated [Aspirin EC] 81 mg PO QAM 05/20/15 [History] ClonazePAM [Klonopin] 1 mg PO TID 05/20/15 [History] Cyanocobalamin (Vitamin B-12) [Vitamin B-12] 250 mcg PO DAILY 05/20/15 [History] Escitalopram [Lexapro] 10 mg PO QAM 05/20/15 [History] Esomeprazole Magnesium [Nexium] 40 mg PO QAM 05/20/15 [History] Guaifenesin [Mucinex] 1,200 mg PO Q12H PRN 05/20/15 [History] Loperamide [Imodium] 2 mg PO AD PRN 05/20/15 [History] Losartan [Cozaar] 50 mg PO BID 05/20/15 [History] Oxycodone HCl/Acetaminophen [Percocet 7.5-325 mg Tablet] 1 tab PO Q8H PRN [History] Promethazine [Phenergan] 25 mg PO Q6HR PRN 05/20/15 [History] Tizanidine [Zanaflex] 4 mg PO TID PRN 05/20/15 [History] Clopidogrel [Plavix] 75 mg PO DAILY 05/21/15 [History] Potassium Chloride 20 meq PO QAM 08/19/15 [History] Butalbital/Aspirin/Caffeine [Fiorinal 50-325-40 mg Capsule] 1 tab PO Q6H PRN [History] Gabapentin [Neurontin] 200 mg PO TID 07/01/16 [History] Levothyroxine [Synthroid] 100 mcg PO QAM 07/01/16 [History] Meclizine [Antivert] 25 mg PO BID PRN 07/01/16 [History] Potassium Chloride [Klor-Con Sprinkle] 10 meq PO QPM 07/01/16 [History] Rosuvastatin [Crestor] 20 mg PO HS 07/01/16 [History] Albuterol Neb [AccuNeb] 1.25 mg IH TID PRN 28 Days #120 vial.neb 06/07/17 [Rx] Furosemide [Lasix] 40 mg PO DAILY #30 tablet 06/07/17 [Rx] Levalbuterol HCl [Xopenex Neb] 1.25 mg IH Q6H PRN #30 vial.neb 06/07/17 [Rx] hydrALAZINE [HydrALAZINE] 50 mg PO Q8HR #90 tablet 06/07/17 [Rx] hydroCHLOROthiazide [Hydrochlorothiazide] 25 mg PO DAILY #30 tablet 06/07/17 [Rx ] Amitriptyline [Elavil] 25 mg PO HS 07/23/17 [History] amLODIPine [Norvasc] 5 mg PO DAILY #30 tablet 07/24/17 [Rx] cloNIDine HCl [CloNIDine HCl] 0.1 mg PO BID tablet 07/24/17 [Rx] Allergies/Adverse Reactions: 3 Allergy/AdvReac Type Severity Reaction Status Date / Time codeine Allergy Anaphylaxis Verified 02/17/16 11:36 olmesartan [From Benicar] AdvReac Nausea Verified 07/01/16 18:35 Certification: Further, I certify that my clinical findings support that this patient is homebound (i.e. absences from home require considerable and taxing effort and are for medical reasons or baptism services or infrequently or short duration when for other reasons) because: Homebound Reason: Patient requires assistance of a person or device to safely leave home, Severity of cardiac or pulmonary status limits activity tolerance Attestation: My signature below is to certify that this patient is under my care and that I, or nurse practitioner, or a physician's switchboard operator assistant working with me, has a face-to -face encounter with this patient.
== END 2017-07-24 11:25 | disposition home or self-care (01) ==
LOC: 3BNU 15:50 → EMEROO 15:50 → 3BNU 20:20
PROVIDERS: ADMIT Internal Medicine; ATTEND Registered Nurse

== ENCOUNTER 2018-02-04 09:59 | Inpatient (IN) ==
[2018-02-04] MEDS ORDERED: 0.9 % Sodium Chloride 500 ML IVC ONE (10:11)
[2018-02-04] MEDS ORDERED: *HR* LORazepam 2 MG/ML VIAL IVP ONE ×2 (10:19→22:57)
--- NOTE | 2018-02-04 10:48 | Emergency Department Note ---
Disposition Clinical Impression: Blurry vision, Hypokalemia Headache Qualifiers: Headache type: unspecified Headache chronicity pattern: unspecified pattern Intractability: not intractable Qualified Code(s): R51 - Headache Chest pain Qualifiers: Chest pain type: unspecified Qualified Code(s): R07.9 - Chest pain, unspecified Disposition: Admitted As Inpatient Condition: Fair Referrals: Shelton Galaviz MD [Primary Care Provider] - Forms: ED Satisfaction Letter Time of Disposition: 14:29 General Adult HPI - General Chief complaint: ED Neuro Symptoms/Deficit Stated complaint: HTN sent by for possible CVA Time Seen by Provider: 02/04/18 10:04 Source: patient Mode of arrival: ambulatory Limitations: no limitations Nursing Notes Reviewed: Yes Vital Signs Reviewed: Yes - History of Present Illness HPI Narrative: 52-year-old female presents today for the primary care provider for evaluation of hypertension blurry vision. Patient said the symptoms since Wednesday of this week. She has a history of cardiac related disease and illness is required stenting in the past. She says that one of the previous times when she had a cardiac catheterization she had her generalized weakness similar to what it was today as well as the hypertension. She denies any specific chest pain shortness of breath nausea vomiting or diarrhea. No new medications or medication changes at this time. Patient does complain of headache and vision changes that is bilateral. All the symptoms of been present for 72 hours Onset (ago): day(s) Location: head Radiation: non-radiation Pain Severity: moderate Pain Scale: 10 Quality: aching Consistency: constant Improves with: nothing Worsens with: nothing Associated symptoms: Reports: denies other symptoms Treatments Prior to Arrival: none - Related Data Home Medications Medication Instructions Recorded Confirmed Aspirin Enteric Coated [Aspirin EC] 81 mg PO QAM 05/20/15 07/22/17 ClonazePAM [Klonopin] 1 mg PO TID 05/20/15 07/23/17 Cyanocobalamin (Vitamin B-12) 250 mcg PO DAILY 05/20/15 07/22/17 [Vitamin B-12] Escitalopram [Lexapro] 10 mg PO QAM 05/20/15 07/22/17 Esomeprazole Magnesium [Nexium] 40 mg PO QAM 05/20/15 07/22/17 Guaifenesin [Mucinex] 1,200 mg PO Q12H PRN 05/20/15 07/22/17 Loperamide [Imodium] 2 mg PO AD PRN 05/20/15 07/22/17 Losartan [Cozaar] 50 mg PO BID 05/20/15 07/22/17 Oxycodone HCl/Acetaminophen 1 tab PO Q8H PRN 05/20/15 07/22/17 [Percocet 7.5-325 mg Tablet] Promethazine [Phenergan] 25 mg PO Q6HR PRN 05/20/15 07/22/17 Tizanidine [Zanaflex] 4 mg PO TID PRN 05/20/15 07/22/17 Clopidogrel [Plavix] 75 mg PO DAILY 05/21/15 07/22/17 Potassium Chloride 20 meq PO QAM 08/19/15 07/22/17 Butalbital/Aspirin/Caffeine 1 tab PO Q6H PRN 07/01/16 07/22/17 [Fiorinal 50-325-40 mg Capsule] Levothyroxine [Synthroid] 100 mcg PO QAM 07/01/16 07/22/17 Meclizine [Antivert] 25 mg PO BID PRN 07/01/16 07/22/17 Potassium Chloride [Klor-Con 10 meq PO QPM 07/01/16 07/22/17 Sprinkle] Rosuvastatin [Crestor] 20 mg PO HS 07/01/16 07/22/17 Amitriptyline [Elavil] 25 mg PO HS 07/23/17 07/23/17 Carvedilol [Coreg] 3.125 mg PO BID 02/04/18 02/04/18 cloNIDine HCl [CloNIDine HCl] 0.1 mg PO TID 02/04/18 02/04/18 Previous Rx's Medication Instructions Recorded Albuterol Neb [AccuNeb] 1.25 mg IH TID PRN 28 Days #120 06/07/17 vial.neb Furosemide [Lasix] 40 mg PO DAILY #30 tablet 06/07/17 Levalbuterol HCl [Xopenex Neb] 1.25 mg IH Q6H PRN #30 vial.neb 06/07/17 hydrALAZINE [HydrALAZINE] 50 mg PO Q8HR #90 tablet 06/07/17 hydroCHLOROthiazide 25 mg PO DAILY #30 tablet 06/07/17 [Hydrochlorothiazide] amLODIPine [Norvasc] 5 mg PO DAILY #30 tablet 07/24/17 Cyclobenzaprine [Flexeril] 10 mg PO BID PRN #15 tablet 09/21/17 Allergies Allergy/AdvReac Type Severity Reaction Status Date / Time codeine Allergy Anaphylaxis Verified 02/17/16 11:36 olmesartan [From Benicar] AdvReac Nausea Verified 07/01/16 18:35 All systems ED: reviewed and negative except as stated. Review of Systems: As Per HPI Constitutional: Denies: fever, chills, weakness Eyes: Reports: vision change. Denies: eye pain, eye discharge Cardiovascular: Denies: chest pain, palpitations, dyspnea on exertion, orthopnea , edema Respiratory: Denies: cough, dyspnea, wheezes Gastrointestinal: Denies: abdominal pain, nausea, vomiting Genitourinary: Denies: urgency, dysuria, frequency Musculoskeletal: Denies: back pain, neck pain Integumentary: Denies: rash Neurological: Reports: headache. Denies: weakness, numbness Past Medical History - Past Medical History Attestation: Yes The following information was validated with the patient. Source: patient Medical history: Reports: arthritis, CHF, COPD, fibromyalgia, GERD, GI bleed, hyperlipidemia, hypertension, myocardial infarction, osteoporosis, peripheral artery disease, renal disease, thyroid disease Surgical history: Reports: angioplasty/stent, hysterectomy, orthopedic, other, other Psychiatric history: Reports: anxiety - Social History Smoking Status: Former smoker Smokeless Tobacco Status: No Alcohol use: Reports: none Drug use: Reports: none Physical Exam - General Limitations: no limitations General appearance: alert, in no apparent distress - Head Head exam: atraumatic, normocephalic, normal inspection - Eye Eye exam: Present: normal appearance, PERRL, EOMI. Absent: scleral icterus, conjunctival injection, nystagmus - ENT ENT exam: normal exam, normal oropharynx, mucous membranes moist - Neck Neck exam: Present: normal inspection, full ROM, trachea midline. Absent: tenderness, meningismus, lymphadenopathy - Chest Chest inspection: Present: normal inspection, symmetric chest wall rise. Absent : tenderness - Respiratory Respiratory exam: Present: normal lung sounds bilaterally. Absent: respiratory distress, accessory muscle use - Cardiovascular Cardiovascular exam: Present: regular rate, normal rhythm, normal heart sounds - Abdominal Exam Abdominal exam: Present: soft, Non-Tender, normal bowel sounds. Absent: tenderness, distention, guarding, rebound, rigidity, diminished bowel sounds, Goel's sign, Rovsing's sign, tenderness at McBurney's Point - Extremities Exam Extremities exam: Present: normal inspection, full ROM, normal capillary refill. Absent: tenderness, pedal edema, joint swelling, calf tenderness - Back Exam Back exam: Present: normal inspection, full ROM. Absent: tenderness - Neurological Exam Neurological exam: Present: alert, oriented X3, CN II-XII intact, normal gait - Psychiatric Psychiatric exam: Present: normal mood, anxious - Skin Skin exam: Present: warm, dry, intact, normal color Course Course Narrative: 52-year-old female seen and examined the time of arrival. See history of present illness patient presents emergency room for primary care provider's office secondary to blurry vision, headache, hypertension. Patient is a vasculopath has had multiple surgeries completed for stenting of multiple arteries throughout her body. Patient most recently had a catheterization performed in October of this year for multivessel disease. She said that the symptoms today are not identical to when she had her heart attack but she is concerned about it. Patient does have blurry vision. The last 3 days along with a tingling sensation that goes across her chest wall. She did not come in to the emergency room because she was scared to do so. All the symptoms of been present for almost 72 hours. On physical exam the patient is awake she is alert she is oriented. Her pupils are equal round reactive with extraocular muscles are intact. She describes blurred vision but still is a has the ability to make out objects in the room. She does not have any signs of tenderness to palpation to the eyes themselves and no pain with movement. Red reflex is intact bilaterally. Oropharynx is patent trachea is midline. Patient has full range of motion of the neck no other acute distress noted. No bruit noted over the auscultation of the neck. Lungs are clear heart is regular. Abdomen is soft patient does have tenderness everywhere. She moves all 4 extremities and has symmetric strength in the upper and lower stomach as of this time. Pulses appear to be intact in all the extremities are warm. Patient is concerning for neurologic related illness or issues including stroke versus psychogenic etiology to the blurry vision here today. CT and an MRI of the head will be completed secondary to the time frame. Patient is on Plavix and aspirin. Concern is noted for possible bleed. Patient also have CT angiography the chest and abdomen considering her initial blood pressures were showing a very narrow pulse pressure. Patient's blood pressure is 149/128. Patient had several repeats that were similar. We are unable to obtain a blood pressure in left arm secondary to catheterization site on that side. Patient will have manual blood pressure collected. Disposition pending the full workup and treatment course at this time. Blood pressure has not been augmented. Patient is still denying any chest pain shortness of breath fevers chills nausea vomiting or diarrhea. She does have a headache and blurry vision. Patient will be monitored closely disposition will be determined. Workup to be completed. - Reevaluation(s) Reevaluation #1: Patient has stable CBC. Potassium is significantly low today at 2.5. Her only comparable is from September of this year with a potassium of 2.7. Patient's troponin is negative. Chest x-ray is stable. CT of the head chest and abdomen are being completed at this time and an MRI to follow. Patient will need admission once the full treatment course is established. 2 EKGs were collected here in the emergency room. First EKG showed sinus rhythm with frequent PVCs. They appeared to be coupled directly after a [place] rhythm. This was compared to previous EKG that showed no acute abnormalities or significant changes. Another EKG was collected approximately 25 minutes after the initial and it shows sinus rhythm. See the EKG documentation of the [facility] Time: 11:29 Reevaluation #2: Patient is otherwise stable. Headache is getting slightly better over time. Patient does not fit in the acute signs of increased intracranial pressure at this point. CT imaging confirmed slight dilation of the ventricles. MRI was unremarkable this time for any signs of stroke or other etiology. Patient will be admitted for hypokalemia, chest pain, headache at this time. Hospitalist was pagelili. Dr. Sutton and I reviewed the patient's presentation symptoms and a detailed workup completed here today and she is comfortable with the admission process at this time for what appears to be hypokalemia chest pain and persistent headache. No other concerns or issues noted this time. Time: 14:29 Vital Signs Temperature 97.6 F 02/04/18 10:01 Pulse Rate 80 02/04/18 10:01 Respiratory Rate 20 05/25/18 10:01 Blood Pressure 187/117 02/04/18 10:01 O2 Sat by Pulse Oximetry 97 02/04/18 10:01 Temperature 97.6 F 02/04/18 10:38 Pulse Rate 72 02/04/18 14:32 Respiratory Rate 16 02/04/18 14:32 Blood Pressure 118/64 02/04/18 14:32 O2 Sat by Pulse Oximetry 97 02/04/18 14:32 Oxygen Delivery Oxygen Delivery Room Air Medical Decision Making - MDM Narrative Medical decision making narrative: Blurry vision, hypokalemia - Medical Records Medical records reviewed: Yes I reviewed the patient's medical records. - Lab Data Lab results reviewed: Yes I reviewed the patient's lab results. Result diagrams: 02/04/18 10:21 02/04/18 10:21 Lab Results 02/04/18 02/04/18 02/04/18 Range/Units 10:11 10:11 10:21 WBC 9.0 (4.3-11.1) K/mcL RBC 5.58 H (3.82-4.97) M/mcL Hgb 16.7 H (11.5-15.4) g/dL Hct 49.1 H (35.3-44.9) % MCV 88.0 (83.0-100.0) fL MCH 29.9 (28.0-33.3) pg MCHC 34.0 (31.6-35.5) g/dL RDW 12.9 (11.5-14.5) % Plt Count 318 (140-400) K/mcL MPV 9.0 L (9.4-12.4) fL Immature Gran % 0.4 (0-4) % Seg Neutrophils % 69.2 % Lymphocytes % 24.2 % Monocytes % 4.9 % Eosinophils % 0.6 % Basophils % 0.7 % Neutrophils # 6.2 (1.6-8.9) K/mcL Lymphocytes # 2.2 (0.6-4.6) K/mcL Monocytes # 0.4 (0.0-1.3) K/mcL Eosinophils # 0.1 (0.0-0.6) K/mcL Basophils # 0.1 (0.0-0.2) K/mcL PT 11.8 (9.4-12.1) Seconds INR 1.1 APTT 37.0 H (26.0-36.0) Seconds Sodium (136-145) mEq/L Potassium (3.5-5.1) mEq/L Chloride (98-107) mEq/L Carbon Dioxide (23-29) mEq/L BUN (6-20) mg/dL Creatinine (0.60-1.20) mg/dL Est GFR ( Amer) (> 60) Est GFR (Non-Af Amer) (> 60) BUN/Creatinine Ratio (6-26) Glucose (70-105) mg/dL Calculated Osmolality (280-300) Calcium (8.6-10.3) mg/dL Magnesium (1.6-2.6) mg/dL Total Bilirubin (0.3-1.0) mg/dL Direct Bilirubin (0.0-0.2) mg/dL Indirect Bilirubin (0.0-1.2) mg/dL AST (13-39) Units/L ALT (7-52) Units/L Alkaline Phosphatase (34-104) Units/L Troponin I (< 0.04) ng/mL B-Natriuretic Peptide 18 (Less than 100) pg/mL Serum Total Protein (6.4-8.9) g/dL Albumin (3.5-5.7) g/dL Globulin (2.4-3.5) g/dL Albumin/Globulin Ratio (1.1-2.2) Lipase (11-82) Units/L TSH (0.340-5.600) mcIU/mL Urine Color (Yellow) Urine Clarity (Clear) Urine pH (5.0-8.0) pH Units Ur Specific [place] (1.010-1.025) Urine Protein (Neg-Trace) mg/dL Urine Glucose (UA) (Normal) mg/dL Urine Ketones (Negative) mg/dL Urine Blood (Negative) Urine Nitrite (Negative) Urine Bilirubin (Negative) Urine Urobilinogen (Normal) mg/dL Ur Leukocyte Esterase (Negative) Ur Culture Indicated? (NO) Urine Opiates Screen (Vogjxl=213) ng/mL Ur Barbiturates Screen (Mkxqro=109) ng/mL Ur Phencyclidine Scrn (Cutoff=25) ng/mL Ur Amphetamines Screen (Xzjkep=3177) ng/mL U Benzodiazepines Scrn (Pkhtry=731) ng/mL Urine Cocaine Screen (Cutoff= 300) ng/mL U Marijuana (THC) Screen (Cutoff = 50) ng/mL 02/04/18 02/04/18 02/04/18 Range/Units 10:21 12:16 12:16 WBC (4.3-11.1) K/mcL RBC (3.82-4.97) M/mcL Hgb (11.5-15.4) g/dL Hct (35.3-44.9) % MCV (83.0-100.0) fL MCH (28.0-33.3) pg MCHC (31.6-35.5) g/dL RDW (11.5-14.5) % Plt Count (140-400) K/mcL MPV (9.4-12.4) fL Immature Gran % (0-4) % Seg Neutrophils % % Lymphocytes % % Monocytes % % Eosinophils % % Basophils % % Neutrophils # (1.6-8.9) K/mcL Lymphocytes # (0.6-4.6) K/mcL Monocytes # (0.0-1.3) K/mcL Eosinophils # (0.0-0.6) K/mcL Basophils # (0.0-0.2) K/mcL PT (9.4-12.1) Seconds INR APTT (26.0-36.0) Seconds Sodium 139 (136-145) mEq/L Potassium 2.5 L* (3.5-5.1) mEq/L Chloride 98 (98-107) mEq/L Carbon Dioxide 34 H (23-29) mEq/L BUN 20 (6-20) mg/dL Creatinine 0.59 L (0.60-1.20) mg/dL Est GFR ( Amer) > 60 (> 60) Est GFR (Non-Af Amer) > 60 (> 60) BUN/Creatinine Ratio 34 H (6-26) Glucose 124 H (70-105) mg/dL Calculated Osmolality 292 (280-300) Calcium 9.4 (8.6-10.3) mg/dL Magnesium 2.2 (1.6-2.6) mg/dL Total Bilirubin 0.4 (0.3-1.0) mg/dL Direct Bilirubin 0.0 (0.0-0.2) mg/dL Indirect Bilirubin 0.4 (0.0-1.2) mg/dL AST 15 (13-39) Units/L ALT 10 (7-52) Units/L Alkaline Phosphatase 113 H (34-104) Units/L Troponin I < 0.03 (< 0.04) ng/mL B-Natriuretic Peptide (Less than 100) pg/mL Serum Total Protein 6.9 (6.4-8.9) g/dL Albumin 4.3 (3.5-5.7) g/dL Globulin 2.6 (2.4-3.5) g/dL Albumin/Globulin Ratio 1.7 (1.1-2.2) Lipase 3 L (11-82) Units/L TSH 1.285 (0.340-5.600) mcIU/mL Urine Color Yellow (Yellow) Urine Clarity Clear (Clear) Urine pH 7.0 (5.0-8.0) pH Units Ur Specific [place] > 1.030 H (1.010-1.025) Urine Protein Negative (Neg-Trace) mg/dL Urine Glucose (UA) Normal (Normal) mg/dL Urine Ketones Negative (Negative) mg/dL Urine Blood Negative (Negative) Urine Nitrite Negative (Negative) Urine Bilirubin Negative (Negative) Urine Urobilinogen Normal (Normal) mg/dL Ur Leukocyte Esterase Negative (Negative) Ur Culture Indicated? NO (NO) Urine Opiates Screen Negative (Xoxyjt=578) ng/mL Ur Barbiturates Screen Positive H (Dxmtnu=092) ng/mL Ur Phencyclidine Scrn Negative (Cutoff=25) ng/mL Ur Amphetamines Screen Negative (Ggjbhe=7338) ng/mL U Benzodiazepines Scrn Negative (Ntcdcd=689) ng/mL Urine Cocaine Screen Negative (Cutoff= 300) ng/mL U Marijuana (THC) Screen Positive H (Cutoff = 50) ng/mL - Radiology Data Radiology results reviewed: Yes I reviewed the patient's radiology results. CC imaging of the head and CT angiography the chest and abdomen are unremarkable for acute pathology this time. MRI does not show any acute signs of stroke. CT did comment on possible normal pressure hydrocephalus - EKG Data EKG #1 EKG attestation: Yes I reviewed and interpreted this EKG. EKG results narrative: EKG #1 Sinus rhythm with frequent ventricular premature complexes. Ventricular rate of 83. [place] interval 170. QRS duration of 83. QTC of 399. [place] appears to be normal. Patient has no visible signs of ST segment elevation. There are chronic depressions in V4 V5 and V6 that is reviewed from an EKG collected on 09/21/17. The [place] beats that are noted on the EKG appear to be stable. No acute signs of WPW or Brugada syndrome EKG #2 sinus rhythm ventricular rate of 87. No PVCs noted pr Interval 128. QRS duration of 89. QTC of 357. [place] is normal. Morphology appears to be identical to previous EKG on 09/21/17. No visible signs of a U wave the patient is hypokalemic and there is widening to the T-wave
[2018-02-04 10:53] LABS: Basophils # 0.1 K/mcL (0.0-0.2); Basophils % 0.7 %; Eosinophils # 0.1 K/mcL (0.0-0.6); Eosinophils % 0.6 %; Hematocrit 49.1 % (35.3-44.9); Hemoglobin 16.7 g/dL (11.5-15.4); Immature Granulocytes % 0.4 % (0-4); Lymphocytes # 2.2 K/mcL (0.6-4.6); Lymphocytes % 24.2 %; Mean Corpuscular Hemoglobin 29.9 pg (28.0-33.3); Monocytes # 0.4 K/mcL (0.0-1.3); Monocytes % 4.9 %; Neutrophils # 6.2 K/mcL (1.6-8.9); Platelet Count 318 K/mcL (140-400); Red Blood Count 5.58 M/mcL (3.82-4.97); Red Cell Distribution Width 12.9 % (11.5-14.5); Segmented Neutrophils % 69.2 %
[2018-02-04 10:58] LABS: INR 1.1; Prothrombin Time 11.8 Seconds (9.4-12.1)
[2018-02-04] MEDS ORDERED: Isovue-370 500 ML INFUS..BTL IV ONE (11:05)
[2018-02-04 11:15] LABS: Troponin I < 0.03 ng/mL (< 0.04)
[2018-02-04 11:22] LABS: Alanine Aminotransferase 10 Units/L (7-52); Albumin 4.3 g/dL (3.5-5.7); Albumin/Globulin Ratio 1.7 (1.1-2.2); Alkaline Phosphatase 113 Units/L (34-104); Aspartate Amino Transferase 15 Units/L (13-39); BUN/Creatinine Ratio 34 (6-26); Bilirubin,Indirect 0.4 mg/dL (0.0-1.2); Bilirubin,Total 0.4 mg/dL (0.3-1.0); Blood Urea Nitrogen 20 mg/dL (6-20); Calcium 9.4 mg/dL (8.6-10.3); Carbon Dioxide 34 mEq/L (23-29); Chloride 98 mEq/L (98-107); Globulin 2.6 g/dL (2.4-3.5); Glucose 124 mg/dL (70-105); Lipase 3 Units/L (11-82); Osmolality,Calculated 292 (280-300); Potassium 2.5 mEq/L (3.5-5.1); Sodium 139 mEq/L (136-145); Total Protein 6.9 g/dL (6.4-8.9); eGFR For African Americans > 60 (> 60); eGFR For Non-African Americans > 60 (> 60)
[2018-02-04] MEDS ORDERED: Potassium Chloride 40 MEQ, Lidocaine 1% 2 ML in D5% in Water 500 ML IVPB ONE (11:23)
[2018-02-04 11:59] LABS: Thyroid Stimulating Hormone 1.285 mcIU/mL (0.340-5.600)
[2018-02-04 12:28] LABS: Bilirubin,Urine Negative (Negative); Blood,Urine Negative (Negative); Clarity,Urine Clear (Clear); Color,Urine Yellow (Yellow); Glucose,Urine (UA) Normal (Normal); Ketones,Urine Negative (Negative); Leukocyte Esterase,Urine Negative (Negative); Nitrite,Urine Negative (Negative); Protein,Urine Negative (Neg-Trace); Specific Gravity,Urine > 1.030 (1.010-1.025); Urobilinogen,Urine Normal (Normal)
[2018-02-04] MEDS ORDERED: Ketorolac 15 MG/ML VIAL IVP ONE (12:34)
[2018-02-04] MEDS ORDERED: Ondansetron 4 MG/2 ML VIAL IVP ONE (12:34)
[2018-02-04 12:53] LABS: Amphetamine Screen,Urine Negative ng/mL (Cutoff=1000); Barbiturate Screen,Urine Positive ng/mL (Cutoff=200); Benzodiazepines Screen,Urine Negative ng/mL (Cutoff=200); Cannabinoid Screen,Urine Positive ng/mL (Cutoff = 50); Cocaine Screen,Urine Negative ng/mL (Cutoff= 300); Opiate Screen,Urine Negative ng/mL (Cutoff=300); Phencyclidine Screen,Urine Negative ng/mL (Cutoff=25)
[2018-02-04 14:41] LABS: Magnesium 2.2 mg/dL (1.6-2.6)
--- NOTE | 2018-02-04 17:57 | Internal Med History&Physical ---
Date of Encounter: 02/04/18 Time of Encounter: 03:00 Internal Medicine - H&P: HPI Chief complaint: CP and headach History of present illness: Ms. Barajas is a 52 year old female presents today for the primary care provider for evaluation of hypertension and blurry vision. She was evaluated by ER staff and Potassium was found to be significantly low today at 2.5. Patient' s troponin is negative. Chest x-ray is stable. EKG was with no significant St -T waves changes. CT imaging confirmed slight dilation of the ventricles. MRI was unremarkable this time for any signs of stroke or other etiology. Patient will be admitted for hypokalemia, chest pain, headache. Past Med Surg Social Fam HX - Past Medical History Medical history: arthritis, CHF, COPD, fibromyalgia, GERD, GI bleed, hyperlipidemia, hypertension, myocardial infarction, osteoporosis, peripheral artery disease, renal disease, thyroid disease Psychiatric history: anxiety - Past Surgical History Surgical History: angioplasty/stent, hysterectomy, orthopedic, other, other - Social History Smoking Status: Former smoker Smokeless Tobacco Status: No Alcohol use: none Drug use: none - Family History Father Living Status: Mother Adopted: No Family Member Ethnicity: Non- Living Status: Still Living Hx Family Cardiac Disorders: Yes (stroke) Hx Family Respiratory Disorders: No Hx Family Cancer: Yes (Skin) Hx Family GI Disorders: Yes (diverticulosis) Hx Family Endocrine Disorder: Yes (lupus, addisons) Hx Family Neuromuscular Disorders: No Hx Family Neurologic Disorders: No Hx Family HEENT Disorders: No Hx Family Autoimmune Disorders: Yes (Rheumatory Arthritis, Seasonal Allergies, Lupus) Internal Medicine - H&P: Meds Aspirin Enteric Coated [Aspirin EC] 81 mg PO QAM 05/20/15 [History] ClonazePAM [Klonopin] 1 mg PO TID 05/20/15 [History] Cyanocobalamin (Vitamin B-12) [Vitamin B-12] 250 mcg PO DAILY 05/20/15 [History] Escitalopram [Lexapro] 10 mg PO QAM 05/20/15 [History] Esomeprazole Magnesium [Nexium] 40 mg PO QAM 05/20/15 [History] Loperamide [Imodium] 2 mg PO AD PRN 05/20/15 [History] Losartan [Cozaar] 50 mg PO 0900,1500 05/20/15 [History] Oxycodone HCl/Acetaminophen [Percocet 7.5-325 mg Tablet] 1 tab PO Q8H PRN [History] Promethazine [Phenergan] 25 mg PO Q6HR PRN 05/20/15 [History] Clopidogrel [Plavix] 75 mg PO DAILY 05/21/15 [History] Potassium Chloride 20 meq PO BID 08/19/15 [History] Butalbital/Aspirin/Caffeine [Fiorinal 50-325-40 mg Capsule] 1 tab PO Q6H PRN [History] Levothyroxine [Synthroid] 100 mcg PO QAM 07/01/16 [History] Meclizine [Antivert] 25 mg PO BID PRN 07/01/16 [History] Rosuvastatin [Crestor] 20 mg PO HS 07/01/16 [History] Albuterol Neb [AccuNeb] 1.25 mg IH TID PRN 28 Days #120 vial.neb 06/07/17 [Rx] Furosemide [Lasix] 40 mg PO DAILY #30 tablet 06/07/17 [Rx] Levalbuterol HCl [Xopenex Neb] 1.25 mg IH Q6H PRN #30 vial.neb 06/07/17 [Rx] hydroCHLOROthiazide [Hydrochlorothiazide] 25 mg PO DAILY #30 tablet 06/07/17 [Rx ] Amitriptyline [Elavil] 25 mg PO HS 07/23/17 [History] amLODIPine [Norvasc] 5 mg PO DAILY #30 tablet 07/24/17 [Rx] Cyclobenzaprine [Flexeril] 10 mg PO BID PRN #15 tablet 09/21/17 [Rx] Carvedilol [Coreg] 3.125 mg PO BID 02/04/18 [History] cloNIDine HCl [CloNIDine HCl] 0.1 mg PO TID 02/04/18 [History] hydrALAZINE [HydrALAZINE] 50 mg PO 0900,1500 02/04/18 [History] 3 Allergy/AdvReac Type Severity Reaction Status Date / Time codeine Allergy Anaphylaxis Verified 02/17/16 11:36 olmesartan [From Benicar] AdvReac Nausea Verified 07/01/16 18:35 All Systems PM: A 10-system review of systems was performed and is negative for pertinent findings except as documented above in the HPI. - Constitutional Constitutional: no chills, no fever(s), no night sweats - EENT Eyes: blurry vision, no change in vision, no discharge, no pain, no photophobia - Cardiovascular Cardiovascular ROS IM: no chest pain, no diaphoresis, no dyspnea, no lightheadedness, no palpitations, no syncope - Respiratory Respiratory: no cough, no dyspnea, no wheezing, no excessive phlegm production - Gastrointestinal Gastrointestinal: no abdominal pain, no diarrhea, no hematemesis, no hematochezia, no melena, no nausea, no vomiting - Neurological Neurological ROS: no confusion, no convulsions, no focal weakness, no numbness, no tingling, no tremor(s) - Constitutional Vitals: Temp Pulse Resp BP Pulse Ox 97.7 F 66 20 131/92 99 02/04/18 16:20 02/04/18 16:20 02/04/18 16:20 02/04/18 16:20 02/04/18 16:20 General appearance: Present: A&O X 3 - Head Head exam: Present: atraumatic, normocephalic - Neck Neck exam general surgery: Present: supple, trachea midline. Absent: lymphadenopathy - Respiratory Respiratory exam: Present: CTAB. Absent: accessory muscle use, rales, rhonchi, wheezes - Cardiovascular Cardiovascular exam: Present: RRR, +S1, +S2. Absent: diastolic murmur, gallop, rubs, systolic murmur - GI/Abdominal GI/Abdominal exam: Present: normal bowel sounds, soft, no peritoneal signs. Absent: distended, tenderness - Extremities Exam Extremities exam: Present: warm, radial pulses palpable and symmetrical. Absent : calf tenderness, cyanotic, pedal edema Internal Med - H&P Results - Labs CBC & Chem 7: 02/06/18 11:19 02/06/18 11:19 - Assessment and plan (1) Headache Status: Acute Assessment and plan: Imaging studies are negative, will consult neuorology. Most likely 2/2 high blood pressure. Qualifiers: Headache type: tension-type Headache chronicity pattern: unspecified pattern Intractability: intractable Qualified Code(s): G44.201 - Tension- type headache, unspecified, intractable (2) Hypokalemia Status: Acute Assessment and plan: We will replace, hold diuretics, Cont to monitor K level (3) Hypertension Status: Chronic Qualifiers: Hypertension type: essential hypertension Qualified Code(s): I10 - Essential (primary) hypertension (4) Vertigo Status: Acute (5) Eye abnormality Status: Acute (6) Blurry vision Status: Acute (7) Hyperlipidemia Status: Chronic Qualifiers: Hyperlipidemia type: unspecified Qualified Code(s): E78.5 - Hyperlipidemia , unspecified (8) Chest pain Status: Acute Qualifiers: Chest pain type: unspecified Qualified Code(s): R07.9 - Chest pain, unspecified (9) GERD (gastroesophageal reflux disease) Status: Chronic Qualifiers: Esophagitis presence: esophagitis presence not specified Qualified Code(s) : K21.9 - Gastro-esophageal reflux disease without esophagitis (10) Hypothyroidism Status: Chronic Qualifiers: Hypothyroidism type: unspecified Qualified Code(s): E03.9 - Hypothyroidism , unspecified - Time Spent With Patient Total time spent is greater than 50% in coordination of care (as documented) at patient's floor/unit and/or counseling patient:
[2018-02-04] MEDS ORDERED: Naloxone 0.4 MG/ML INJ IVP PRN (18:06)
--- NOTE | 2018-02-04 18:06 | Internal Med History&Physical ---
Date of Encounter: 02/04/18 Internal Medicine - H&P: HPI History of present illness: Ms. Barajas is a 52 year old female Past Med Surg Social Fam HX - Past Medical History Medical history: arthritis, CHF, COPD, fibromyalgia, GERD, GI bleed, hyperlipidemia, hypertension, myocardial infarction, osteoporosis, peripheral artery disease, renal disease, thyroid disease Psychiatric history: anxiety - Past Surgical History Surgical History: angioplasty/stent, hysterectomy, orthopedic, other, other - Social History Smoking Status: Former smoker Smokeless Tobacco Status: No Alcohol use: none Drug use: none - Family History Father Living Status: Mother Adopted: No Family Member Ethnicity: Non- Living Status: Still Living Hx Family Cardiac Disorders: Yes (stroke) Hx Family Respiratory Disorders: No Hx Family Cancer: Yes (Skin) Hx Family GI Disorders: Yes (diverticulosis) Hx Family Endocrine Disorder: Yes (lupus, addisons) Hx Family Neuromuscular Disorders: No Hx Family Neurologic Disorders: No Hx Family HEENT Disorders: No Hx Family Autoimmune Disorders: Yes (Rheumatory Arthritis, Seasonal Allergies, Lupus) Internal Medicine - H&P: Meds Aspirin Enteric Coated [Aspirin EC] 81 mg PO QAM 05/20/15 [History] ClonazePAM [Klonopin] 1 mg PO TID 05/20/15 [History] Cyanocobalamin (Vitamin B-12) [Vitamin B-12] 250 mcg PO DAILY 05/20/15 [History] Escitalopram [Lexapro] 10 mg PO QAM 05/20/15 [History] Esomeprazole Magnesium [Nexium] 40 mg PO QAM 05/20/15 [History] Loperamide [Imodium] 2 mg PO AD PRN 05/20/15 [History] Losartan [Cozaar] 50 mg PO BID 05/20/15 [History] Oxycodone HCl/Acetaminophen [Percocet 7.5-325 mg Tablet] 1 tab PO Q8H PRN [History] Promethazine [Phenergan] 25 mg PO Q6HR PRN 05/20/15 [History] Clopidogrel [Plavix] 75 mg PO DAILY 05/21/15 [History] Potassium Chloride 20 meq PO BID 08/19/15 [History] Butalbital/Aspirin/Caffeine [Fiorinal 50-325-40 mg Capsule] 1 tab PO Q6H PRN [History] Levothyroxine [Synthroid] 100 mcg PO QAM 07/01/16 [History] Meclizine [Antivert] 25 mg PO BID PRN 07/01/16 [History] Rosuvastatin [Crestor] 20 mg PO HS 07/01/16 [History] Albuterol Neb [AccuNeb] 1.25 mg IH TID PRN 28 Days #120 vial.neb 06/07/17 [Rx] Furosemide [Lasix] 40 mg PO DAILY #30 tablet 06/07/17 [Rx] Levalbuterol HCl [Xopenex Neb] 1.25 mg IH Q6H PRN #30 vial.neb 06/07/17 [Rx] hydroCHLOROthiazide [Hydrochlorothiazide] 25 mg PO DAILY #30 tablet 06/07/17 [Rx ] Amitriptyline [Elavil] 25 mg PO HS 07/23/17 [History] amLODIPine [Norvasc] 5 mg PO DAILY #30 tablet 07/24/17 [Rx] Cyclobenzaprine [Flexeril] 10 mg PO BID PRN #15 tablet 09/21/17 [Rx] Carvedilol [Coreg] 3.125 mg PO BID 02/04/18 [History] cloNIDine HCl [CloNIDine HCl] 0.1 mg PO TID 02/04/18 [History] hydrALAZINE [HydrALAZINE] 50 mg PO BID 02/04/18 [History] 3 Allergy/AdvReac Type Severity Reaction Status Date / Time codeine Allergy Anaphylaxis Verified 02/17/16 11:36 olmesartan [From Benicar] AdvReac Nausea Verified 07/01/16 18:35 All Systems PM: A 10-system review of systems was performed and is negative for pertinent findings except as documented above in the HPI. - Constitutional Vitals: Temp Pulse Resp BP Pulse Ox 97.7 F 66 20 131/92 99 02/04/18 16:20 02/04/18 16:20 02/04/18 16:20 02/04/18 16:20 02/04/18 16:20 Internal Med - H&P Results - Labs CBC & Chem 7: 02/04/18 10:21 02/04/18 10:21 - Time Spent With Patient Total time spent is greater than 50% in coordination of care (as documented) at patient's floor/unit and/or counseling patient:
[2018-02-04] MEDS ORDERED: BUTALBITAL PO PRN (18:13)
[2018-02-04] MEDS ORDERED: ASPIRIN PO PRN (18:13)
[2018-02-04] MEDS ORDERED: Albuterol Neb 1.25 MG/3 ML VIAL IH PRN (18:13)
[2018-02-04] MEDS ORDERED: Levalbuterol Neb 1.25 MG/3 ML IH PRN (18:13)
[2018-02-04] MEDS ORDERED: CAFFEINE PO PRN (18:13)
[2018-02-04] MEDS: *HR* OxyCODONE/APAP 7.5/325 TABLET PO PRN (19:01)
[2018-02-04 20:37] LABS: Alanine Aminotransferase 8 Units/L (7-52); Albumin 3.5 g/dL (3.5-5.7); Albumin/Globulin Ratio 1.6 (1.1-2.2); Alkaline Phosphatase 92 Units/L (34-104); Aspartate Amino Transferase 14 Units/L (13-39); BUN/Creatinine Ratio 26 (6-26); Bilirubin,Total 0.4 mg/dL (0.3-1.0); Blood Urea Nitrogen 16 mg/dL (6-20); Calcium 8.7 mg/dL (8.6-10.3); Carbon Dioxide 33 mEq/L (23-29); Chloride 99 mEq/L (98-107); Globulin 2.2 g/dL (2.4-3.5); Glucose 102 mg/dL (70-105); Osmolality,Calculated 285 (280-300); Potassium 2.8 mEq/L (3.5-5.1); Sodium 137 mEq/L (136-145); Total Protein 5.7 g/dL (6.4-8.9); eGFR For African Americans > 60 (> 60); eGFR For Non-African Americans > 60 (> 60)
[2018-02-04] MEDS: cloNIDine HCl 0.1 MG TABLET PO SCH (22:27)
[2018-02-04] MEDS: hydrALAZINE 25 MG TABLET PO SCH (22:28)
[2018-02-04] MEDS: clonazePAM 1 MG TABLET PO SCH (22:29)
[2018-02-05] MEDS: *HR* OxyCODONE/APAP 7.5/325 TABLET PO PRN ×2 (04:16→14:12)
[2018-02-05] MEDS: *HR* Heparin 5,000 UNIT/ML VIAL SQ SCH ×2 (05:45→17:02)
[2018-02-05 06:15] LABS: Hematocrit 40.3 % (35.3-44.9); Mean Corpuscular HGB Conc 33.3 g/dL (31.6-35.5); Mean Corpuscular Hemoglobin 29.9 pg (28.0-33.3); Mean Platelet Volume 9.1 fL (9.4-12.4); Platelet Count 248 K/mcL (140-400); Red Blood Count 4.48 M/mcL (3.82-4.97); Red Cell Distribution Width 13.1 % (11.5-14.5)
[2018-02-05 06:23] LABS: Hemoglobin 13.4 g/dL (11.5-15.4)
[2018-02-05 07:00] LABS: Alanine Aminotransferase 8 Units/L (7-52); Albumin 3.1 g/dL (3.5-5.7); Albumin/Globulin Ratio 1.5 (1.1-2.2); Alkaline Phosphatase 86 Units/L (34-104); Aspartate Amino Transferase 13 Units/L (13-39); BUN/Creatinine Ratio 31 (6-26); Bilirubin,Total 0.2 mg/dL (0.3-1.0); Blood Urea Nitrogen 15 mg/dL (6-20); Calcium 8.4 mg/dL (8.6-10.3); Carbon Dioxide 33 mEq/L (23-29); Chloride 102 mEq/L (98-107); Chol/HDL Ratio 4.1 (0-4.9); Cholesterol 131 mg/dL (< 200); Globulin 2.1 g/dL (2.4-3.5); Glucose 103 mg/dL (70-105); HDL Cholesterol 32 mg/dL (40-59); LDL Cholesterol,Calculated 73 mg/dL (0-99); Osmolality,Calculated 291 (280-300); Phosphorous 4.3 mg/dL (2.7-4.5); Potassium 2.8 mEq/L (3.5-5.1); Sodium 140 mEq/L (136-145); Total Protein 5.2 g/dL (6.4-8.9); Triglycerides 129 mg/dL (< 150); eGFR For African Americans > 60 (> 60); eGFR For Non-African Americans > 60 (> 60)
[2018-02-05] MEDS ORDERED: Cyanocobalamin (B-12) 1,000 MCG TABLET PO SCH (09:00)
[2018-02-05] MEDS: amLODIPine 5 MG TABLET PO SCH (09:05)
[2018-02-05] MEDS: clonazePAM 1 MG TABLET PO SCH ×3 (09:06→20:53)
[2018-02-05] MEDS: Aspirin Enteric Coated 81 MG Tablet PO SCH (09:06)
[2018-02-05] MEDS: cloNIDine HCl 0.1 MG TABLET PO SCH ×3 (09:06→20:52)
[2018-02-05] MEDS: hydrALAZINE 25 MG TABLET PO SCH ×2 (09:06→14:13)
[2018-02-05] MEDS: Acetaminophen 325 MG TABLET PO PRN (09:17)
[2018-02-05] MEDS ORDERED: Potassium Chloride 40 MEQ, Lidocaine 1% 2 ML in D5% in Water 500 ML IVPB ONE (11:09)
--- NOTE | 2018-02-05 11:42 | Neurology - Consult Note ---
Date of Encounter: 02/05/18 Time of Encounter: 09:40 Assessment and Plan (1) Cephalgia Current Visit: Yes Status: Acute This patient was been experiencing acute headaches predominantly all over her head without any focal findings on neurological examination is significantly elevated blood pressure. MRI of the brain is reported as negative without any acute or other abnormality. There was a concern for some ventricles are dilated on the CT scan but MRI did not show any acute findings seems to be due to the imaging techniques. Regardless clinically she did not have any sign and symptoms of NPH At the moment I recommend that we should control the blood pressure which likely would help her headaches as well. For acute has headaches sometimes we may try low-dose of the steroids but considering blood pressure issues it might make it worse so I would recommend avoiding any steroids headaches can be treated symptomatically and at the same time may try her low-dose of muscle relaxers that might help with these headaches. Patient also complaining of some pain and weakness of the right upper extremity which seems to be more musculoskeletal has no evidence of any stroke or strokelike symptoms on exam or on imaging studies. Other treatment is as per primary team Qualifiers: Headache type: other headache syndrome Qualified Code(s): G44.89 - Other headache syndrome (2) Hypertensive urgency Current Visit: No Status: Acute History of Present Illness HPI: Ms. Barajas is a 52 year old female who was admitted from the emergency room referred by her primary care provider because of hypertension blurry vision. and headaches Patient said the symptoms since Wednesday of this week. She has a history of cardiac related disease and illness is required stenting in the past. . She denies any specific chest pain shortness of breath nausea vomiting or diarrhea. No new medications or medication changes at this time. Patient does complain of headache and vision changes that is bilateral. All the symptoms of been present for 72 hours. She she described this headache is all over her head predominantly in the front on the top of the head with blurred vision denies any vision loss and she denies any focal motor weakness but complaining of a lot of pain in her right upper extremity with difficulty with movement. Patient states she has a history of lupus and also has arthritis Past Med Surg Social Fam HX - Past Medical History Medical history: arthritis, CHF, COPD, fibromyalgia, GERD, GI bleed, hyperlipidemia, hypertension, myocardial infarction, osteoporosis, peripheral artery disease, renal disease, thyroid disease Psychiatric history: anxiety - Past Surgical History Surgical History: angioplasty/stent, hysterectomy, orthopedic, other, other - Social History Smoking Status: Former smoker Smokeless Tobacco Status: No Alcohol use: none Drug use: none - Family History Father Living Status: Mother Adopted: No Family Member Ethnicity: Non- Living Status: Still Living Hx Family Cardiac Disorders: Yes (stroke) Hx Family Respiratory Disorders: No Hx Family Cancer: Yes (Skin) Hx Family GI Disorders: Yes (diverticulosis) Hx Family Endocrine Disorder: Yes (lupus, addisons) Hx Family Neuromuscular Disorders: No Hx Family Neurologic Disorders: No Hx Family HEENT Disorders: No Hx Family Autoimmune Disorders: Yes (Rheumatory Arthritis, Seasonal Allergies, Lupus) Medications and Allergies Aspirin Enteric Coated [Aspirin EC] 81 mg PO QAM 05/20/15 [History] ClonazePAM [Klonopin] 1 mg PO TID 05/20/15 [History] Cyanocobalamin (Vitamin B-12) [Vitamin B-12] 250 mcg PO DAILY 05/20/15 [History] Escitalopram [Lexapro] 10 mg PO QAM 05/20/15 [History] Esomeprazole Magnesium [Nexium] 40 mg PO QAM 05/20/15 [History] Loperamide [Imodium] 2 mg PO AD PRN 05/20/15 [History] Losartan [Cozaar] 50 mg PO 0900,1500 05/20/15 [History] Oxycodone HCl/Acetaminophen [Percocet 7.5-325 mg Tablet] 1 tab PO Q8H PRN [History] Promethazine [Phenergan] 25 mg PO Q6HR PRN 05/20/15 [History] Clopidogrel [Plavix] 75 mg PO DAILY 05/21/15 [History] Potassium Chloride 20 meq PO BID 08/19/15 [History] Butalbital/Aspirin/Caffeine [Fiorinal 50-325-40 mg Capsule] 1 tab PO Q6H PRN [History] Levothyroxine [Synthroid] 100 mcg PO QAM 07/01/16 [History] Meclizine [Antivert] 25 mg PO BID PRN 07/01/16 [History] Rosuvastatin [Crestor] 20 mg PO HS 07/01/16 [History] Albuterol Neb [AccuNeb] 1.25 mg IH TID PRN 28 Days #120 vial.neb 06/07/17 [Rx] Furosemide [Lasix] 40 mg PO DAILY #30 tablet 06/07/17 [Rx] Levalbuterol HCl [Xopenex Neb] 1.25 mg IH Q6H PRN #30 vial.neb 06/07/17 [Rx] hydroCHLOROthiazide [Hydrochlorothiazide] 25 mg PO DAILY #30 tablet 06/07/17 [Rx ] Amitriptyline [Elavil] 25 mg PO HS 07/23/17 [History] amLODIPine [Norvasc] 5 mg PO DAILY #30 tablet 07/24/17 [Rx] Cyclobenzaprine [Flexeril] 10 mg PO BID PRN #15 tablet 09/21/17 [Rx] Carvedilol [Coreg] 3.125 mg PO BID 02/04/18 [History] cloNIDine HCl [CloNIDine HCl] 0.1 mg PO TID 02/04/18 [History] hydrALAZINE [HydrALAZINE] 50 mg PO 0900,1500 02/04/18 [History] 3 Allergy/AdvReac Type Severity Reaction Status Date / Time codeine Allergy Anaphylaxis Verified 02/17/16 11:36 olmesartan [From Benicar] AdvReac Nausea Verified 07/01/16 18:35 All Systems: The remainder of the systems were reviewed and are negative Physical Examination - Vital Signs Vital Signs: Initial Vital Signs Temp Pulse Resp BP Pulse Ox 97.6 F 80 20 187/117 97 02/04/18 10:01 02/04/18 10:01 02/04/18 10:01 02/04/18 10:01 02/04/18 10:01 - Exam Exam: GENERAL: Comfortable in no acute distress HEENT: Normal LUNGS: CTA HEART: RRR, S1 S2 Audible, no murmur EXTREMITIES: No Pedal edema. DETAILED NEUROLOGICAL EXAMINATION: MENTAL STATUS: Oriented to person, place, date and situation. Memory: knows the President, Aware of recent events Recent Memory Intact Cranial Nerve Examination: CN - II: Visual Acuity, Field of Vision Normal, Fundus examination: No disk edema, Pupils- size shape reaction to light and accommodation: All normal. CN III, IV, : External ocular movements were intact, Pupils were reactive, Nodrooping of the eyelids CN V: Sensation over the face to light touch and pinprick all normal. Corneal reflexes not tested, jaw jerk normal. CN VII: No facial asymmetry, no flattening of nasolabial folds, no difficulty in closing the eyes, no loss of forehead wrinkles, no difficulty in eye-closure, frowning raising eyebrows. CNVIII: No significant hearing loss CN IX, X: Uvula centralized not deviated, Gag reflex: Not tested CN X1: Sternocleidomastoid, trapezius, normal or evidence of any weakness. CN X11: No Dysarthria, no wasting or fibrilation f tongue muscles, no deviation, tongue muscle strength normal. Motor examination: No hypertrophy, tone was normal, power grade 0-5 Upper limbs Pain in the right upper extremity with limited movement though tone is normal and weakness is likely related to significant pain which seems to be in the joint and in the arm, left upper extremities within normal limits Lower limbs On formal testing 5/5 all over Coordination: [id number] normal. Target pursuit normal finger tapping normal, Rapid alternating moment of wrist normal Sensory system: Superficial sensations- Touch normal. Pain- Pinprick, Temperature all normal, Deep sensation normal, Joint position sense normal. Cortical sensation, Tactile discrimination, localization and extinction all normal. Deep tendon reflexes. Symmetrical bilateral, No evidence of Babinski. No sign of meningeal irritation Gait Examination: Deferred Results - Laboratory Findings CBC and BMP: 02/05/18 05:32 02/05/18 05:32 Abnormal lab findings: Abnormal lab results MPV 9.1 fL (9.4-12.4) L 02/05/18 05:32 Potassium 2.8 mEq/L (3.5-5.1) L 02/05/18 05:32 Carbon Dioxide 33 mEq/L (23-29) H 02/05/18 05:32 Creatinine 0.49 mg/dL (0.60-1.20) L 02/05/18 05:32 BUN/Creatinine Ratio 31 (6-26) H 02/05/18 05:32 Calcium 8.4 mg/dL (8.6-10.3) L 02/05/18 05:32 Total Bilirubin 0.2 mg/dL (0.3-1.0) L 02/05/18 05:32 Serum Total Protein 5.2 g/dL (6.4-8.9) L 02/05/18 05:32 Albumin 3.1 g/dL (3.5-5.7) L 02/05/18 05:32 Globulin 2.1 g/dL (2.4-3.5) L 02/05/18 05:32 HDL Cholesterol 32 mg/dL (40-59) L 02/05/18 05:32 Lipase 3 Units/L (11-82) L 02/04/18 10:21 Ur Specific [place] > 1.030 (1.010-1.025) H 02/04/18 12:16 Ur Barbiturates Screen Positive ng/mL (Dctsmy=722) H 02/04/18 12:16 U Marijuana (THC) Screen Positive ng/mL (Cutoff = 50) H 02/04/18 12:16 - Diagnostic Findings Additional findings: MRI of the brain is reported as negative no evidence of any acute abnormality Consult Discharge Plan - Plan Referrals: Shelton Galaviz MD [Primary Care Provider] -
--- NOTE | 2018-02-05 13:43 | Cardiology Consult Note ---
<Pancho Valladares - Last Filed: 02/05/18 14:17> Date of Encounter: 02/05/18 Time of Encounter: 13:40 Assessment and Plan (1) Chest pain Current Visit: Yes Status: Acute Atypical chest pain in the setting of uncontrolled HTN. Muscle skeletal pain in right arm. Troponin negative x 3. EKG shows NSR with non-specific T wave changes. [facility] 05/2017- S/p PCI to the RCA. 50% mLAD stenosis, 40% dRCA stenosis remaining. EF 55%. CTA chest negative for dissection or PE. Recommend better blood pressure control. Potassium at 2.8- replacement is ordered. Can consider stress test in future, in out-pt setting once b/p well controlled. Due to chronic headaches and dizziness will hold off on starting nitrates. Qualifiers: Chest pain type: unspecified Qualified Code(s): R07.9 - Chest pain, unspecified (2) Hypertensive urgency Current Visit: No Status: Acute History of malignant hypertension. On multiple agents. B/p improved this mornng after home medications given. Reported to have refused meds last nights. Continue to monitor and adjust as needed. (3) CAD (coronary artery disease) Current Visit: No Status: Chronic History of PCI with preserved EF. Continue asa, statin, bb, crestor, and plavix. Qualifiers: Coronary Disease-Associated Artery/Lesion type: ak chin artery [place] vs. transplanted heart: ak chin heart Associated angina: angina presence unspecified Qualified Code(s): I25.10 - Atherosclerotic heart disease of ak chin coronary artery without angina pectoris Discussion w patient/family: The assessment and plan as outlined above was discussed with the patient and/or family members who expressed understanding and agreement. All questions were answered. Thank you for involving us in the care of your patient. Please call with any questions. History of Present Illness Consult date: 02/05/18 Requesting physician: Roxanna Sutton Consult reason: Chest pain Chief complaint: Chest discomfort, elevated blood pressure History of present illness: Ms. Barajas is a 52 year old female with past medical history of CAD and PCI to the RCA 05/2017, hypertension, chron's, SLE, COPD, fibromyalgia who presents from PCP office with elevated blood pressure. She also c/o "funny feeling" in her chest, headache, and blurred vision. States the funny feeling she had was similar to what she felt prior to her previous stent. It is noted that she was also admitted at that time with hypertensive urgency. Overnight she developed a pain in her right arm and is unable to move it on my exam. She currently denies chest discomfort. Troponin are negative x3. EKG shows NSR with non-specific changes. Past Med Surg Social Fam HX - Past Medical History Attestation: Yes The following information was validated with the patient. Medical history: arthritis, CHF, COPD, coronary artery disease, fibromyalgia, GERD, GI bleed, hyperlipidemia, hypertension, myocardial infarction, osteoporosis, peripheral artery disease, renal disease, thyroid disease Psychiatric history: anxiety - Past Surgical History Surgical History: angioplasty/stent, hysterectomy, orthopedic, other, other - Social History Smoking Status: Former smoker Smokeless Tobacco Status: No Alcohol use: none Drug use: none - Family History Father Living Status: Mother Adopted: No Family Member Ethnicity: Non- Living Status: Still Living Hx Family Cardiac Disorders: Yes (stroke) Hx Family Respiratory Disorders: No Hx Family Cancer: Yes (Skin) Hx Family GI Disorders: Yes (diverticulosis) Hx Family Endocrine Disorder: Yes (lupus, addisons) Hx Family Neuromuscular Disorders: No Hx Family Neurologic Disorders: No Hx Family HEENT Disorders: No Hx Family Autoimmune Disorders: Yes (Rheumatory Arthritis, Seasonal Allergies, Lupus) Medications and Allergies Aspirin Enteric Coated [Aspirin EC] 81 mg PO QAM 05/20/15 [History] ClonazePAM [Klonopin] 1 mg PO TID 05/20/15 [History] Cyanocobalamin (Vitamin B-12) [Vitamin B-12] 250 mcg PO DAILY 05/20/15 [History] Escitalopram [Lexapro] 10 mg PO QAM 05/20/15 [History] Esomeprazole Magnesium [Nexium] 40 mg PO QAM 05/20/15 [History] Loperamide [Imodium] 2 mg PO AD PRN 05/20/15 [History] Losartan [Cozaar] 50 mg PO 0900,1500 05/20/15 [History] Oxycodone HCl/Acetaminophen [Percocet 7.5-325 mg Tablet] 1 tab PO Q8H PRN [History] Promethazine [Phenergan] 25 mg PO Q6HR PRN 09/07/15 [History] Clopidogrel [Plavix] 75 mg PO DAILY 05/21/15 [History] Potassium Chloride 20 meq PO BID 08/19/15 [History] Butalbital/Aspirin/Caffeine [Fiorinal 50-325-40 mg Capsule] 1 tab PO Q6H PRN [History] Levothyroxine [Synthroid] 100 mcg PO QAM 07/01/16 [History] Meclizine [Antivert] 25 mg PO BID PRN 07/01/16 [History] Rosuvastatin [Crestor] 20 mg PO HS 07/01/16 [History] Albuterol Neb [AccuNeb] 1.25 mg IH TID PRN 28 Days #120 vial.neb 06/07/17 [Rx] Furosemide [Lasix] 40 mg PO DAILY #30 tablet 06/07/17 [Rx] Levalbuterol HCl [Xopenex Neb] 1.25 mg IH Q6H PRN #30 vial.neb 06/07/17 [Rx] hydroCHLOROthiazide [Hydrochlorothiazide] 25 mg PO DAILY #30 tablet 06/07/17 [Rx ] Amitriptyline [Elavil] 25 mg PO HS 07/23/17 [History] amLODIPine [Norvasc] 5 mg PO DAILY #30 tablet 07/24/17 [Rx] Cyclobenzaprine [Flexeril] 10 mg PO BID PRN #15 tablet 09/21/17 [Rx] Carvedilol [Coreg] 3.125 mg PO BID 02/04/18 [History] cloNIDine HCl [CloNIDine HCl] 0.1 mg PO TID 02/04/18 [History] hydrALAZINE [HydrALAZINE] 50 mg PO 0900,1500 02/04/18 [History] 3 Allergy/AdvReac Type Severity Reaction Status Date / Time codeine Allergy Anaphylaxis Verified 02/17/16 11:36 olmesartan [From Benicar] AdvReac Nausea Verified 07/01/16 18:35 All Systems Review: The remainder of the systems were reviewed and are negative Physical Examination Vital Signs, Last 4 Hours Temp Pulse Resp BP Pulse Ox 02/05/18 12:45 97.8 F 50 16 117/73 98 General: Conversant, Other (Gaurding right arm, anxious appearing) HEENT: Atraumatic, Normocephaly, Mucus Membranes Moist Neck: No JVD, Normal carotid pulses Cardiac: Reg Rate and Rhythm, Normal S1 and S2, No Murmur Lungs: Normal Breath Sounds, No Wheeze, Rales, Rhonchi Neuro: Alert and responsive, No focal deficits noted Abdomen: Soft, Non-Tender Skin: No rashes noted on visualized skin Musculoskeletal: No Chest Wall Tenderness Extremities: No Clubbing, No Cyanosis, No Edema, Normal Pulses Results 02/05/18 05:32 02/05/18 05:32 Lab Results 02/04/18 02/04/18 02/04/18 18:15 19:27 23:45 WBC Hgb Hct Plt Count APTT D-Dimer < 215 Sodium 137 Potassium 2.8 L Chloride 99 Carbon Dioxide 33 H BUN 16 Creatinine 0.62 Glucose 102 Calcium 8.7 Magnesium Total Bilirubin 0.4 AST 14 ALT 8 Alkaline Phosphatase 92 Troponin I < 0.03 02/05/18 02/05/18 02/05/18 00:00 05:32 05:32 WBC 6.0 Hgb 13.4 D Hct 40.3 Plt Count 248 APTT 34.7 D-Dimer Sodium Potassium Chloride Carbon Dioxide BUN Creatinine Glucose Calcium Magnesium Total Bilirubin AST ALT Alkaline Phosphatase Troponin I < 0.03 02/05/18 02/05/18 05:32 05:32 WBC Hgb Hct Plt Count APTT D-Dimer Sodium 140 Potassium 2.8 L Chloride 102 Carbon Dioxide 33 H BUN 15 Creatinine 0.49 L Glucose 103 Calcium 8.4 L Magnesium 2.0 Total Bilirubin 0.2 L AST 13 ALT 8 Alkaline Phosphatase 86 Troponin I < 0.03 - Imaging and Cardiology Echo: report reviewed Cardiac cath: report reviewed - EKG Interpretation EKG results cardiology: personally reviewed Consult Discharge Plan - Plan Referrals: Shelton Galaviz MD [Primary Care Provider] - <Alexia Pierce - Last Filed: 02/05/18 14:32> Date of Encounter: 02/05/18 - Attending Attestation I examined this patient and my medical decision-making was reviewed with the RETAIL CASHIER. I agree with the documented findings, disposition and treatment plan as described. Ms. Barajas presents with atypical chest pain in setting of uncontolled hypertension and right sided musculoskeletal right arm pain. Troponins have been negative and there are not new ECG changes. Patient denies missing any doses of her antiplatelet therapy - [facility] 05/30 s/p PCI. CTA chest negative for PE or dissection. No further cardiac testing is warranted. Recommend optimizing blood pressures. Continue cardiac medications. Will sign off. Please call with questions. Assessment and Plan Discussion w patient/family: The assessment and plan as outlined above was discussed with the patient and/or family members who expressed understanding and agreement. All questions were answered. Thank you for involving us in the care of your patient. Please call with any questions. History of Present Illness History of present illness: Ms. Barajas is a 52 year old female All Systems Review: The remainder of the systems were reviewed and are negative Physical Examination Vital Signs, Last 4 Hours Temp Pulse Resp BP Pulse Ox 02/05/18 14:15 65 125/85 02/05/18 12:45 97.8 F 50 16 117/73 98 Results 02/05/18 05:32 02/05/18 05:32 Lab Results 02/04/18 02/04/18 02/04/18 18:15 19:27 23:45 WBC Hgb Hct Plt Count APTT D-Dimer < 215 Sodium 137 Potassium 2.8 L Chloride 99 Carbon Dioxide 33 H BUN 16 Creatinine 0.62 Glucose 102 Calcium 8.7 Magnesium Total Bilirubin 0.4 AST 14 ALT 8 Alkaline Phosphatase 92 Troponin I < 0.03 02/05/18 02/05/18 02/05/18 00:00 05:32 05:32 WBC 6.0 Hgb 13.4 D Hct 40.3 Plt Count 248 APTT 34.7 D-Dimer Sodium Potassium Chloride Carbon Dioxide BUN Creatinine Glucose Calcium Magnesium Total Bilirubin AST ALT Alkaline Phosphatase Troponin I < 0.03 02/05/18 02/05/18 05:32 05:32 WBC Hgb Hct Plt Count APTT D-Dimer Sodium 140 Potassium 2.8 L Chloride 102 Carbon Dioxide 33 H BUN 15 Creatinine 0.49 L Glucose 103 Calcium 8.4 L Magnesium 2.0 Total Bilirubin 0.2 L AST 13 ALT 8 Alkaline Phosphatase 86 Troponin I < 0.03
[2018-02-05 15:10] LABS: Bilirubin,Urine Negative (Negative); Blood,Urine Negative (Negative); Clarity,Urine Clear (Clear); Color,Urine Yellow (Yellow); Glucose,Urine (UA) Normal (Normal); Ketones,Urine Negative (Negative); Leukocyte Esterase,Urine Negative (Negative); Nitrite,Urine Negative (Negative); PH,Urine 6.5 pH Units (5.0-8.0); Protein,Urine Negative (Neg-Trace); Specific Gravity,Urine 1.025 (1.010-1.025); Urobilinogen,Urine Normal (Normal)
--- NOTE | 2018-02-05 17:56 | Electrocardiograph Report ---
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
--- NOTE | 2018-02-05 17:56 | Internal Med Progress Note ---
Date of Encounter: 02/05/18 Time of Encounter: 11:00 - Assessment and plan (1) Hypertensive urgency Current Visit: No Status: Acute Assessment and plan: Patient's blood pressures improving after restarting home medications. Continue to monitor overnight (2) Hypokalemia Current Visit: No Status: Acute Assessment and plan: Continue replacements in addition to holding diuretics. Continue to monitor (3) Chest pain Current Visit: Yes Status: Acute Assessment and plan: Troponins negative; EKG shows NSR with non-specific T wave changes. Cardiology consulted with recommendations for better blood pressure controlled and to continue asa, statin, bb, crestor, and plavix. Qualifiers: Chest pain type: unspecified Qualified Code(s): R07.9 - Chest pain, unspecified (4) Headache Current Visit: No Status: Acute Assessment and plan: CT of the head but not MRI showed concerns for some ventricles are dilated on the CT scan but MRI did not show any acute findings seems to be due to the imaging techniques. Neurology consulted and he does not feel that clinically patient has NPH as she has no signs or symptoms. Headache secondary to uncontrolled blood pressures. Qualifiers: Headache type: tension-type Headache chronicity pattern: unspecified pattern Intractability: intractable Qualified Code(s): G44.201 - Tension- type headache, unspecified, intractable (5) Hypothyroidism Current Visit: No Status: Chronic Assessment and plan: Continue levothyroxine Qualifiers: Hypothyroidism type: unspecified Qualified Code(s): E03.9 - Hypothyroidism , unspecified - Time Spent With Patient Total time spent is greater than 50% in coordination of care (as documented) at patient's floor/unit and/or counseling patient: - Subjective Interval history: Patient's blood pressures slowly improving this morning after home medications restarted. - Constitutional Vitals: Temp Pulse Resp BP Pulse Ox 97.6 F 55 17 125/66 99 02/05/18 16:43 02/05/18 16:43 02/05/18 16:43 02/05/18 16:43 02/05/18 16:43 General appearance: Present: A&O X 3, no acute distress - Respiratory Respiratory exam: Present: CTAB. Absent: accessory muscle use, rales, rhonchi, wheezes - Cardiovascular Cardiovascular exam: Present: RRR, +S1, +S2. Absent: diastolic murmur, gallop, rubs, systolic murmur Internal Medicine: Result - Labs CBC & Chem 7: 02/05/18 05:32 02/05/18 05:32 Labs: Short CBC 02/05/18 Range/Units 05:32 WBC 6.0 (4.3-11.1) K/mcL Hgb 13.4 D (11.5-15.4) g/dL Hct 40.3 (35.3-44.9) % Plt Count 248 (140-400) K/mcL BMP 02/04/18 02/05/18 19:27 05:32 Sodium 137 140 Potassium 2.8 L 2.8 L Chloride 99 102 Carbon Dioxide 33 H 33 H BUN 16 15 Creatinine 0.62 0.49 L Glucose 102 103 Calcium 8.7 8.4 L Cardiac Enzymes 02/04/18 02/05/18 02/05/18 Range/Units 18:15 00:00 05:32 Troponin I < 0.03 < 0.03 < 0.03 (< 0.04) ng/mL Liver Function 02/04/18 02/05/18 Range/Units 19:27 05:32 Total Bilirubin 0.4 0.2 L (0.3-1.0) mg/dL AST 14 13 (13-39) Units/L ALT 8 8 (7-52) Units/L Alkaline Phosphatase 92 86 (34-104) Units/L Albumin 3.5 3.1 L (3.5-5.7) g/dL Urine 02/05/18 Range/Units 12:52 Urine Color Yellow (Yellow) Urine Clarity Clear (Clear) Urine pH 6.5 (5.0-8.0) pH Units Ur Specific [place] 1.025 (1.010-1.025) Urine Protein Negative (Neg-Trace) mg/dL Urine Glucose (UA) Normal (Normal) mg/dL - ABG Interpretation ABG results: PT/INR, D-dimer PT 11.8 Seconds (9.4-12.1) 02/04/18 10:11 D-Dimer < 215 ng/mLFEU (0-500) 02/04/18 23:45 Consult Discharge Plan - Plan Referrals: Shelton Galaviz MD [Primary Care Provider] -
--- NOTE | 2018-02-05 17:56 | Electrocardiograph Report ---
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
[2018-02-06] MEDS: *HR* OxyCODONE/APAP 7.5/325 TABLET PO PRN ×2 (02:03→15:05)
[2018-02-06] MEDS: *HR* Heparin 5,000 UNIT/ML VIAL SQ SCH (05:39)
[2018-02-06] MEDS ORDERED: Cyanocobalamin (B-12) 1,000 MCG TABLET PO SCH (09:00)
[2018-02-06] MEDS: Aspirin Enteric Coated 81 MG Tablet PO SCH (09:25)
[2018-02-06] MEDS: clonazePAM 1 MG TABLET PO SCH (09:25)
[2018-02-06] MEDS: amLODIPine 5 MG TABLET PO SCH (09:25)
[2018-02-06] MEDS: hydrALAZINE 25 MG TABLET PO SCH (09:26)
[2018-02-06] MEDS: cloNIDine HCl 0.1 MG TABLET PO SCH (09:29)
[2018-02-06 10:58] VITALS: BP 143/92
[2018-02-06] MEDS: Acetaminophen 325 MG TABLET PO PRN (12:03)
[2018-02-06 12:55] LABS: Hematocrit 38.1 % (35.3-44.9); Hemoglobin 12.9 g/dL (11.5-15.4); Mean Corpuscular HGB Conc 33.9 g/dL (31.6-35.5); Mean Corpuscular Hemoglobin 31.2 pg (28.0-33.3); Mean Corpuscular Volume 92.3 fL (83.0-100.0); Mean Platelet Volume 9.3 fL (9.4-12.4); Platelet Count 235 K/mcL (140-400); Red Blood Count 4.13 M/mcL (3.82-4.97); Red Cell Distribution Width 13.3 % (11.5-14.5)
[2018-02-06 13:25] LABS: BUN/Creatinine Ratio 21 (6-26); Blood Urea Nitrogen 13 mg/dL (6-20); Calcium 8.2 mg/dL (8.6-10.3); Carbon Dioxide 29 mEq/L (23-29); Chloride 106 mEq/L (98-107); Glucose 113 mg/dL (70-105); Osmolality,Calculated 289 (280-300); Potassium 3.6 mEq/L (3.5-5.1); Sodium 139 mEq/L (136-145); eGFR For African Americans > 60 (> 60); eGFR For Non-African Americans > 60 (> 60)
--- NOTE | 2018-02-06 14:01 | Discharge Summary ---
- NOTES TO OUTPATIENT PROVIDER Notes to Outpatient Provider: none Date of Encounter: 02/06/18 Time of Encounter: 11:00 - Discharge Diagnosis (1) Hypertensive urgency Priority: Primary Status: Acute (2) Hypokalemia Priority: Secondary Status: Acute (3) Chest pain Priority: Primary Status: Acute Qualifiers: Chest pain type: unspecified Qualified Code(s): R07.9 - Chest pain, unspecified (4) Headache Priority: Primary Status: Acute Qualifiers: Headache type: tension-type Headache chronicity pattern: unspecified pattern Intractability: intractable Qualified Code(s): G44.201 - Tension- type headache, unspecified, intractable (5) Hypothyroidism Priority: Secondary Status: Chronic Qualifiers: Hypothyroidism type: unspecified Qualified Code(s): E03.9 - Hypothyroidism , unspecified Hospital course: Patient is a 52-year-old female with past medical history significant for hypertension, hypothyroid, hyperlipidemia who was sent to the ER on 02/04/18 by primary care provider due to elevated blood pressures and symptoms of headaches and blurred vision. In the ER, patient was found to be hypokalemic but no EKG changes and first set of troponins negative. Patient was admitted for ACS rule out in addition to blood pressure control. During patients hospital stay her cardiac biomarkers were negative; cardiology also consulted and ACS ruled out. Patients blood pressure medications were restarted and her hypertension was controlled. Neurology was also consulted for headaches but workup was negative and suspected secondary to uncontrolled blood pressures. In addition patient was also found to be hypokalemic and potassium replacements were given and levels returned to normal limits. Patient will be discharged to follow up with primary care provider. - Time Spent with Patient Total time spent providing and/or coordinating discharge services: Less than 30 minutes - Discharge Medications Home Medications: Aspirin Enteric Coated [Aspirin EC] 81 mg PO QAM 05/20/15 [History] ClonazePAM [Klonopin] 1 mg PO TID 05/20/15 [History] Cyanocobalamin (Vitamin B-12) [Vitamin B-12] 250 mcg PO DAILY 05/20/15 [History] Escitalopram [Lexapro] 10 mg PO QAM 05/20/15 [History] Esomeprazole Magnesium [Nexium] 40 mg PO QAM 05/20/15 [History] Loperamide [Imodium] 2 mg PO AD PRN 05/20/15 [History] Losartan [Cozaar] 50 mg PO 0900,1500 05/20/15 [History] Oxycodone HCl/Acetaminophen [Percocet 7.5-325 mg Tablet] 1 tab PO Q8H PRN [History] Promethazine [Phenergan] 25 mg PO Q6HR PRN 05/20/15 [History] Clopidogrel [Plavix] 75 mg PO DAILY 05/21/15 [History] Potassium Chloride 20 meq PO BID 08/19/15 [History] Butalbital/Aspirin/Caffeine [Fiorinal 50-325-40 mg Capsule] 1 tab PO Q6H PRN [History] Levothyroxine [Synthroid] 100 mcg PO QAM 07/01/16 [History] Meclizine [Antivert] 25 mg PO BID PRN 07/01/16 [History] Rosuvastatin [Crestor] 20 mg PO HS 07/01/16 [History] Albuterol Neb [AccuNeb] 1.25 mg IH TID PRN 28 Days #120 vial.neb 06/07/17 [Rx] Furosemide [Lasix] 40 mg PO DAILY #30 tablet 06/07/17 [Rx] Levalbuterol HCl [Xopenex Neb] 1.25 mg IH Q6H PRN #30 vial.neb 06/07/17 [Rx] hydroCHLOROthiazide [Hydrochlorothiazide] 25 mg PO DAILY #30 tablet 06/07/17 [Rx ] Amitriptyline [Elavil] 25 mg PO HS 07/23/17 [History] amLODIPine [Norvasc] 5 mg PO DAILY #30 tablet 07/24/17 [Rx] Cyclobenzaprine [Flexeril] 10 mg PO BID PRN #15 tablet 09/21/17 [Rx] Carvedilol [Coreg] 3.125 mg PO BID 02/04/18 [History] cloNIDine HCl [CloNIDine HCl] 0.1 mg PO TID 02/04/18 [History] hydrALAZINE [HydrALAZINE] 50 mg PO 0900,1500 02/04/18 [History] Allergies/Adverse Reactions: 3 Allergy/AdvReac Type Severity Reaction Status Date / Time codeine Allergy Anaphylaxis Verified 02/17/16 11:36 olmesartan [From Benicar] AdvReac Nausea Verified 07/01/16 18:35 Date of admission: 02/04/18 18:07 Primary care physician: Shelton Galaviz MD Consults: 02/05/18 04:16 Consult to Cardiology [CONS] Routine Comment: Consulting Provider: Cardiology [facility] Reason for Consult: CP Time Notified: 07:00 Call Completed: Yes 02/05/18 04:17 Consult to Neurology [CONS] Routine Consulting Provider: [facility] Reason for Consult: headache and blurry vision Time Notified: 06:00 Call Completed: No - Constitutional Vitals: Temp Pulse Resp BP Pulse Ox 97.8 F 65 16 143/92 97 02/06/18 10:53 02/06/18 10:53 02/06/18 10:53 02/06/18 10:53 02/06/18 10:53 General appearance: Present: A&O X 3, no acute distress - Respiratory Respiratory exam: Present: CTAB. 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 If you do not hear from them by Wednesday please call and schedule an appointment 5-7 days out. Thank you! ) - VTE Documentation of Mechanical Device: Graduated compression elastic hosiery
--- NOTE | 2018-02-06 15:31 | Physician Discharge Referral ---
Home Health/Hosp Referral Info Transfer to: Home Health - Diagnosis (1) Hypertensive urgency Status: Acute (2) Hypokalemia Status: Acute (3) Chest pain Status: Acute (4) Headache Status: Acute (5) Hypothyroidism Status: Chronic - Respiratory Orders Smoking Cessation: Smoking cessation has been advised. For more information, call the [place] Tobacco Quit Line at 4-185-FUZV-NOW. - Services Needed Following services are medically necessary services: Physical Therapy, Occupational Therapy - Transfer Medications Home Medications: Aspirin Enteric Coated [Aspirin EC] 81 mg PO QAM 05/20/15 [History] ClonazePAM [Klonopin] 1 mg PO TID 05/20/15 [History] Cyanocobalamin (Vitamin B-12) [Vitamin B-12] 250 mcg PO DAILY 05/20/15 [History] Escitalopram [Lexapro] 10 mg PO QAM 05/20/15 [History] Esomeprazole Magnesium [Nexium] 40 mg PO QAM 05/20/15 [History] Loperamide [Imodium] 2 mg PO AD PRN 05/20/15 [History] Losartan [Cozaar] 50 mg PO 0900,1500 05/20/15 [History] Oxycodone HCl/Acetaminophen [Percocet 7.5-325 mg Tablet] 1 tab PO Q8H PRN [History] Promethazine [Phenergan] 25 mg PO Q6HR PRN 05/20/15 [History] Clopidogrel [Plavix] 75 mg PO DAILY 05/21/15 [History] Potassium Chloride 20 meq PO BID 08/19/15 [History] Butalbital/Aspirin/Caffeine [Fiorinal 50-325-40 mg Capsule] 1 tab PO Q6H PRN [History] Levothyroxine [Synthroid] 100 mcg PO QAM 07/01/16 [History] Meclizine [Antivert] 25 mg PO BID PRN 07/01/16 [History] Rosuvastatin [Crestor] 20 mg PO HS 07/01/16 [History] Albuterol Neb [AccuNeb] 1.25 mg IH TID PRN 28 Days #120 vial.neb 06/07/17 [Rx] Furosemide [Lasix] 40 mg PO DAILY #30 tablet 06/07/17 [Rx] Levalbuterol HCl [Xopenex Neb] 1.25 mg IH Q6H PRN #30 vial.neb 06/07/17 [Rx] hydroCHLOROthiazide [Hydrochlorothiazide] 25 mg PO DAILY #30 tablet 06/07/17 [Rx ] Amitriptyline [Elavil] 25 mg PO HS 07/23/17 [History] amLODIPine [Norvasc] 5 mg PO DAILY #30 tablet 07/24/17 [Rx] Cyclobenzaprine [Flexeril] 10 mg PO BID PRN #15 tablet 09/21/17 [Rx] Carvedilol [Coreg] 3.125 mg PO BID 02/04/18 [History] cloNIDine HCl [CloNIDine HCl] 0.1 mg PO TID 02/04/18 [History] hydrALAZINE [HydrALAZINE] 50 mg PO 0900,1500 02/04/18 [History] Allergies/Adverse Reactions: 3 Allergy/AdvReac Type Severity Reaction Status Date / Time codeine Allergy Anaphylaxis Verified 02/17/16 11:36 olmesartan [From Benicar] AdvReac Nausea Verified 07/01/16 18:35 Certification: Further, I certify that my clinical findings support that this patient is homebound (i.e. absences from home require considerable and taxing effort and are for medical reasons or [employer] services or infrequently or short duration when for other reasons) because: Homebound Reason: Patient requires assistance of a person or device to safely leave home Attestation: My signature below is to certify that this patient is under my care and that I, or nurse practitioner, or a physician's surveyor's assistant working with me, has a face-to -face encounter with this patient.
== END 2018-02-06 15:41 | disposition home or self-care (01) | DRG 305 ==
LOC: EMEROO 09:59 → 2ANU 09:59 → SUATTDRO 18:07
PROVIDERS: ADMIT Hospitalist; ATTEND Hospitalist

== ENCOUNTER 2019-03-30 11:26 | Inpatient (IN) ==
[2019-03-30] MEDS ORDERED: Ondansetron 4 MG/2 ML VIAL IVP ONE (11:44)
[2019-03-30] MEDS ORDERED: 0.9 % Sodium Chloride 1,000 ML IVC ONE (11:44)
[2019-03-30] MEDS ORDERED: Isovue-370 500 ML BOTTLE IVP ONE (11:55)
[2019-03-30] MEDS ORDERED: *HR* FentaNYL (PF) 100 MCG/2 ML VIAL IVP ONE (12:06)
[2019-03-30] MEDS ORDERED: *HR* Promethazine 25 MG/ML VIAL IVP ONE ×2 (12:06→13:44)
--- NOTE | 2019-03-30 12:13 | Emergency Department Note ---
Disposition Clinical Impression: Hypokalemia Intractable nausea and vomiting Qualifiers: Vomiting type: unspecified Qualified Code(s): R11.2 - Nausea with vomiting, uns pecified Abdominal pain Qualifiers: Abdominal location: generalized Qualified Code(s): R10.84 - Generalized abdominal pain Disposition: Admitted As Inpatient Condition: Good Referrals: Shelton Galaviz MD [Primary Care Provider] - Forms: ED Satisfaction Letter Time of Disposition: 15:29 Nausea/Vomiting/Diarrhea HPI - General Chief complaint: ED Nausea/Vomiting/Diarrhea Stated complaint: n/v Time Seen by Provider: 03/30/19 11:44 Source: patient Mode of arrival: private vehicle Limitations: no limitations Nursing Notes Reviewed: Yes Vital Signs Reviewed: Yes - History of Present Illness HPI Narrative: 53-year-old female with a prior history of lupus, Crohn's not on any immunosuppressant her steroid use who presents with a complaint of abdominal pain nausea and vomiting. Symptoms have been present for approximately 3 days. States that she started having vomiting after eating the other day. Her pain is more left-sided. She has a prior history of requiring an open procedure to remove a mass. Denies any history of diverticulitis or Colyte as. She is continued to have nausea and vomiting daily. She states yesterday she was having some left-sided chest pain. She does have a history of CAD with one stent. States the pain is worse whenever she moves her arm. She was taking Phenergan at home which helped it was still having some nausea and vomiting. Denies any dysuria or hematuria. No other complaints. Pt Subjective Complaint: nausea, vomiting, abdominal pain Onset (ago): day(s) Associated Abdominal Pain: Yes If pain, Location of pain: LUQ, LLQ Consistency: constant Improves with: nothing Worsens with: nonthing Associated symptoms: Reports: nausea/vomiting. Denies: dysuria - Related Data Home Medications Medication Instructions Recorded Confirmed Aspirin Enteric Coated [Aspirin EC] 81 mg PO QAM 05/20/15 03/30/19 Cyanocobalamin (Vitamin B-12) 250 mcg PO DAILY 05/20/15 03/30/19 [Vitamin B-12] Esomeprazole Magnesium [Nexium] 40 mg PO QAM 05/20/15 03/30/19 Losartan [Cozaar] 50 mg PO 0900,1500 05/20/15 03/30/19 Butalbital/Aspirin/Caffeine 1 tab PO Q6H PRN 07/01/16 03/30/19 [Fiorinal 50-325-40 mg Capsule] Amitriptyline [Elavil] 25 mg PO HS 07/23/17 03/30/19 cloNIDine HCl [CloNIDine HCl] 0.1 mg PO TID 02/04/18 03/30/19 hydrALAZINE [HydrALAZINE] 50 mg PO 0900,1500 02/04/18 03/30/19 Clopidogrel [Plavix] 75 mg PO DAILY 07/22/18 03/30/19 Diphenoxylate/Atropine [Lomotil 1 each PO QID PRN 07/22/18 03/30/19 2.5 mg/0.025 mg] Escitalopram [Lexapro] 10 mg PO DAILY 07/22/18 03/30/19 Furosemide [Lasix] 40 mg PO DAILY PRN 07/22/18 03/30/19 Levothyroxine Sodium 100 mcg PO DAILY 07/22/18 03/30/19 Meclizine HCl [Verticalm] 25 mg PO DAILY 07/22/18 03/30/19 OxyCODONE/APAP 7.5/325 [Percocet 1 each PO BID PRN 07/22/18 03/30/19 7.5/325 MG] Potassium Chloride [K-Tab ER] 40 meq PO TID 07/22/18 03/30/19 Rosuvastatin Calcium [Crestor] 40 mg PO DAILY 07/22/18 03/30/19 Spironolactone 25 mg PO DAILY 07/22/18 03/30/19 clonazePAM [Clonazepam] 1 mg PO TID 07/22/18 03/30/19 Previous Rx's Medication Instructions Recorded Levalbuterol HCl [Xopenex Neb] 1.25 mg IH Q6H PRN #30 vial.neb 06/07/17 hydroCHLOROthiazide 25 mg PO DAILY #30 tablet 06/07/17 [Hydrochlorothiazide] amLODIPine [Norvasc] 5 mg PO DAILY #30 tablet 07/24/17 Cyclobenzaprine [Flexeril] 10 mg PO BID PRN #15 tablet 09/21/17 Allergies Allergy/AdvReac Type Severity Reaction Status Date / Time codeine Allergy Anaphylaxis Verified 02/17/16 11:36 albuterol AdvReac Shakiness Verified 07/22/18 20:13 olmesartan [From Benicar] AdvReac Nausea Verified 07/01/16 18:35 All systems ED: reviewed and negative except as stated. Constitutional: Reports: chills. Denies: fever Cardiovascular: Reports: chest pain Respiratory: Denies: dyspnea Gastrointestinal: Reports: abdominal pain, nausea, vomiting. Denies: diarrhea, constipation Genitourinary: Denies: dysuria, hematuria Past Medical History - Past Medical History Attestation: Yes The following information was validated with the patient. Source: patient Medical history: Reports: arthritis, CHF, COPD, coronary artery disease, fibromyalgia, GERD, GI bleed, hyperlipidemia, hypertension, myocardial infarction, osteoporosis, peripheral artery disease, renal disease, thyroid disease Surgical history: Reports: angioplasty/stent, hysterectomy, orthopedic, other, other Psychiatric history: Reports: anxiety, depression - Social History Smoking Status: Former smoker Smokeless Tobacco Status: No Alcohol use: Reports: none Drug use: Reports: none Physical Exam - General Limitations: no limitations General appearance: alert, in no apparent distress - Head Head exam: atraumatic, normocephalic, normal inspection - Eye Eye exam: Present: normal appearance - ENT ENT exam: normal exam - Neck Neck exam: Present: normal inspection - Chest Chest inspection: Present: normal inspection, symmetric chest wall rise, other (L sided chest port) - Respiratory Respiratory exam: Present: normal lung sounds bilaterally - Cardiovascular Cardiovascular exam: Present: regular rate, normal rhythm, irregular rhythm - Abdominal Exam Abdominal exam: Present: soft, tenderness (Patient has moderate tenderness to the left upper quadrant and left lower quadrant.). Absent: distention, guarding, rigidity - Extremities Exam Extremities exam: Present: normal inspection, full ROM - Expanded Upper Extremity Exam Shoulder exam: Present: normal inspection, full ROM Arm exam: Present: normal inspection, full ROM Elbow exam: Present: normal inspection, full ROM Forearm/Wrist exam: Present: normal inspection, full ROM Hand exam: Present: normal inspection, full ROM - Expanded Lower Extremity Exam Hip/Pelvis exam: Present: normal inspection, full ROM Upper leg exam: Present: normal inspection, full ROM Knee exam: Present: normal inspection, full ROM Lower leg exam: Present: normal inspection, full ROM Ankle exam: Present: normal inspection, full ROM Foot/toe exam: Present: normal inspection, full ROM - Skin Skin exam: Present: warm, dry Course Course Narrative: Seen and examined. Vital signs reviewed. She has a nonsurgical abdominal exam. Plan for an EKG, chest x-ray and troponin although low likelihood given the nature of her chest pain, CT imaging of the abdomen given her prior history of Crohn's, labs, IV fluids and antiemetics. - Reevaluation(s) Reevaluation #1: Patient vomited the potassium pill here. We are starting peripheral potassium replacement. Patient given another dose of Phenergan. Reevaluation #2: CT imaging reviewed without acute findings. Discussed with the patient. She still feels nauseous. Given her low potassium at this point plan to admit her for further supplementation. Vital Signs Temperature 98.6 F 03/30/19 11:40 Pulse Rate 96 03/30/19 11:40 Respiratory Rate 18 03/30/19 11:40 Blood Pressure 138/95 03/30/19 11:40 O2 Sat by Pulse Oximetry 94 03/30/19 11:40 Temperature 98.6 F 03/30/19 11:40 Pulse Rate 58 03/30/19 15:14 Respiratory Rate 17 03/30/19 15:14 Blood Pressure 124/95 03/30/19 15:14 O2 Sat by Pulse Oximetry 98 03/30/19 15:14 Oxygen Delivery Oxygen Delivery Room Air Nausea/Vomiting/Diarrhea - [facility] Narrative Medical decision making narrative: 53-year-old female presenting with nausea vomiting and abdominal pain for [address] is unremarkable for acute pathology. Her labs are grossly un remarkable with the exception of a profoundly low potassium of 2.3. She does have a slightly prolonged QT of 495. Unable to supplement oral potassium as the patient continues to have vomiting. Peripheral potassium replacement was initiated. The patient is admitted to the hospital service for further management. - Lab Data Lab results reviewed: Yes I reviewed the patient's lab results. Result diagrams: 03/30/19 12:07 03/30/19 12:07 Lab Results 03/30/19 03/30/19 03/30/19 Range/Units 12:07 12:07 12:07 WBC 8.1 (4.3-11.1) K/mcL RBC 5.92 H (3.82-4.97) M/mcL Hgb 17.8 H (11.5-15.4) g/dL Hct 52.4 H (35.3-44.9) % MCV 88.5 (83.0-100.0) fL MCH 30.1 (28.0-33.3) pg MCHC 34.0 (31.6-35.5) g/dL RDW 13.1 (11.5-14.5) % Plt Count 287 (140-400) K/mcL MPV 10.0 (9.4-12.4) fL Immature Gran % 0.2 (0-4) % Seg Neutrophils % 72.6 % Lymphocytes % 19.6 % Monocytes % 6.5 % Eosinophils % 0.4 % Basophils % 0.7 % Neutrophils # 5.8 (1.6-8.9) K/mcL Lymphocytes # 1.6 (0.6-4.6) K/mcL Monocytes # 0.5 (0.0-1.3) K/mcL Eosinophils # 0.0 (0.0-0.6) K/mcL Basophils # 0.1 (0.0-0.2) K/mcL Sodium 137 (136-145) mEq/L Potassium 2.3 L* (3.5-5.1) mEq/L Chloride 95 L (98-107) mEq/L Carbon Dioxide 29 (23-29) mEq/L BUN 30 H (6-20) mg/dL Creatinine 1.01 (0.60-1.20) mg/dL Est GFR ( Amer) > 60 (> 60) Est GFR (Non-Af Amer) 57 L (> 60) BUN/Creatinine Ratio 30 H (6-26) Glucose 145 H (70-105) mg/dL Calculated Osmolality 293 (280-300) Calcium 9.4 (8.6-10.3) mg/dL Magnesium 2.2 (1.6-2.6) mg/dL Total Bilirubin 0.5 (0.3-1.0) mg/dL AST 13 (13-39) Units/L ALT 6 L (7-52) Units/L Alkaline Phosphatase 134 H (34-104) Units/L Troponin I < 0.03 (< 0.04) ng/mL Serum Total Protein 7.1 (6.4-8.9) g/dL Albumin 4.5 (3.5-5.7) g/dL Globulin 2.6 (2.4-3.5) g/dL Albumin/Globulin Ratio 1.7 (1.1-2.2) Lipase < 3 L (11-82) Units/L Urine Color (Yellow) Urine Clarity (Clear) Urine pH (5.0-8.0) pH Units Ur Specific Rollins (1.010-1.025) Urine Protein (Neg-Trace) mg/dL Urine Glucose (UA) (Normal) mg/dL Urine Ketones (Negative) mg/dL Urine Blood (Negative) Urine Nitrite (Negative) Urine Bilirubin (Negative) Urine Urobilinogen (Normal) mg/dL Ur Leukocyte Esterase (Negative) Urine Microscopic RBC (0-3) per hpf Urine Microscopic WBC (0-3) per hpf Ur Squamous Epith Cells (None-Few) per lpf Urine Bacteria (None-Few) per hpf Hyaline Casts (None-Few) per lpf Ur Culture Indicated? (NO) Urine Test (Negative) 03/30/19 03/30/19 Range/Units 13:41 13:41 WBC (4.3-11.1) K/mcL RBC (3.82-4.97) M/mcL Hgb (11.5-15.4) g/dL Hct (35.3-44.9) % MCV (83.0-100.0) fL MCH (28.0-33.3) pg MCHC (31.6-35.5) g/dL RDW (11.5-14.5) % Plt Count (140-400) K/mcL MPV (9.4-12.4) fL Immature Gran % (0-4) % Seg Neutrophils % % Lymphocytes % % Monocytes % % Eosinophils % % Basophils % % Neutrophils # (1.6-8.9) K/mcL Lymphocytes # (0.6-4.6) K/mcL Monocytes # (0.0-1.3) K/mcL Eosinophils # (0.0-0.6) K/mcL Basophils # (0.0-0.2) K/mcL Sodium (136-145) mEq/L Potassium (3.5-5.1) mEq/L Chloride (98-107) mEq/L Carbon Dioxide (23-29) mEq/L BUN (6-20) mg/dL Creatinine (0.60-1.20) mg/dL Est GFR ( Amer) (> 60) Est GFR (Non-Af Amer) (> 60) BUN/Creatinine Ratio (6-26) Glucose (70-105) mg/dL Calculated Osmolality (280-300) Calcium (8.6-10.3) mg/dL Magnesium (1.6-2.6) mg/dL Total Bilirubin (0.3-1.0) mg/dL AST (13-39) Units/L ALT (7-52) Units/L Alkaline Phosphatase (34-104) Units/L Troponin I (< 0.04) ng/mL Serum Total Protein (6.4-8.9) g/dL Albumin (3.5-5.7) g/dL Globulin (2.4-3.5) g/dL Albumin/Globulin Ratio (1.1-2.2) Lipase (11-82) Units/L Urine Color Yellow (Yellow) Urine Clarity Clear (Clear) Urine pH 7.0 (5.0-8.0) pH Units Ur Specific Rollins 1.023 (1.010-1.025) Urine Protein 30 H (Neg-Trace) mg/dL Urine Glucose (UA) Normal (Normal) mg/dL Urine Ketones 15 H (Negative) mg/dL Urine Blood Trace H (Negative) Urine Nitrite Negative (Negative) Urine Bilirubin Small H (Negative) Urine Urobilinogen Normal (Normal) mg/dL Ur Leukocyte Esterase Small H (Negative) Urine Microscopic RBC 5-15 H (0-3) per hpf Urine Microscopic WBC 5-15 H (0-3) per hpf Ur Squamous Epith Cells Many H (None-Few) per lpf Urine Bacteria Few (None-Few) per hpf Hyaline Casts Few (None-Few) per lpf Ur Culture Indicated? YES A (NO) Urine Test Negative (Negative) - Radiology Data Radiology results reviewed: Yes I reviewed the patient's radiology results. Abdomen/Pelvis CT 03/30/19 11:55 IMPRESSION: 1. No acute intra-abnormality. 2. No acute intrapelvic abnormality. 3. Diverticulosis without obvious inflammation. D/ / Ruddy Lin MD / Ruddy Lin MD Interpreting Provider: Ruddy Lin MD Chest X-Ray 03/30/19 11:56 IMPRESSION: No acute cardiopulmonary disease. D/ / Maryse Euceda MD / Maryse Euceda MD Interpreting Provider: Maryse Euceda MD - EKG Data EKG attestation: Yes I reviewed and interpreted this EKG. EKG results narrative: EKG demonstrates sinus rhythm with a rate of 82 beats or minute. Normal axis. Normal intervals with the exception of a slightly prolonged QTC of 495.. Normal R-wave progression. No gross ST elevations or depressions. No acute ischemic findings. Critical Care Time Critical Care Time: Yes Total Critical Care Time: 35 Attestation: Critical care time including separately billable procedures of 35 minutes given the patient's critically low potassium level in conjunction with EKG changes, supplementation and coordination of admission. S.B.Mark - S.Martell.Mark Situation: Demographics, MOA Background: Presenting Complaint, Relevant PMH, Meds, & Allergies Assessment: Course and respsone to treatment, Exam Concerns, Patient/Family Expectation, Pertinant Lab Results Recommendation: Barrier(s) to disposition, Recommendation based on pending studies, treatments, or consults SSimiBAcosta Report Given to: Dr. Verna Read Repor Time: 15:29
[2019-03-30 12:22] LABS: Basophils # 0.1 K/mcL (0.0-0.2); Basophils % 0.7 %; Eosinophils % 0.4 %; Hematocrit 52.4 % (35.3-44.9); Hemoglobin 17.8 g/dL (11.5-15.4); Immature Granulocytes % 0.2 % (0-4); Lymphocytes # 1.6 K/mcL (0.6-4.6); Lymphocytes % 19.6 %; Mean Corpuscular Hemoglobin 30.1 pg (28.0-33.3); Mean Corpuscular Volume 88.5 fL (83.0-100.0); Monocytes # 0.5 K/mcL (0.0-1.3); Monocytes % 6.5 %; Neutrophils # 5.8 K/mcL (1.6-8.9); Platelet Count 287 K/mcL (140-400); Red Blood Count 5.92 M/mcL (3.82-4.97); Red Cell Distribution Width 13.1 % (11.5-14.5); Segmented Neutrophils % 72.6 %; White Blood Count 8.1 K/mcL (4.3-11.1)
[2019-03-30 12:41] LABS: Troponin I < 0.03 ng/mL (< 0.04)
[2019-03-30 12:49] LABS: Alanine Aminotransferase 6 Units/L (7-52); Albumin 4.5 g/dL (3.5-5.7); Albumin/Globulin Ratio 1.7 (1.1-2.2); Alkaline Phosphatase 134 Units/L (34-104); Aspartate Amino Transferase 13 Units/L (13-39); BUN/Creatinine Ratio 30 (6-26); Bilirubin,Total 0.5 mg/dL (0.3-1.0); Blood Urea Nitrogen 30 mg/dL (6-20); Calcium 9.4 mg/dL (8.6-10.3); Carbon Dioxide 29 mEq/L (23-29); Chloride 95 mEq/L (98-107); Glucose 145 mg/dL (70-105); Osmolality,Calculated 293 (280-300); Potassium 2.3 mEq/L (3.5-5.1); Sodium 137 mEq/L (136-145); Total Protein 7.1 g/dL (6.4-8.9); eGFR For African Americans > 60 (> 60); eGFR For Non-African Americans 57 (> 60)
[2019-03-30 12:50] LABS: Globulin 2.6 g/dL (2.4-3.5); Lipase < 3 Units/L (11-82)
[2019-03-30] MEDS ORDERED: Potassium Chloride 20 MEQ, Lidocaine 1% 2 ML in D5% in Water 250 ML IVPB ONE (12:58)
[2019-03-30 13:13] LABS: Magnesium 2.2 mg/dL (1.6-2.6)
[2019-03-30 13:57] LABS: Bilirubin,Urine Small (Negative); Blood,Urine Trace (Negative); Clarity,Urine Clear (Clear); Color,Urine Yellow (Yellow); Glucose,Urine (UA) Normal (Normal); Ketones,Urine 15 mg/dL (Negative); Leukocyte Esterase,Urine Small (Negative); Nitrite,Urine Negative (Negative); Protein,Urine 30 mg/dL (Neg-Trace); Specific Gravity,Urine 1.023 (1.010-1.025); Urobilinogen,Urine Normal (Normal)
[2019-03-30 13:59] LABS: Bacteria,Urine Few per hpf (None-Few); Hyaline Casts,Urine Few per lpf (None-Few); Squamous Epithelial Cell,Urine Many per lpf (None-Few)
[2019-03-30] MEDS ORDERED: Acetaminophen 325 MG TABLET PO PRN (15:53)
[2019-03-30] MEDS ORDERED: Naloxone 0.4 MG/ML INJ IVP PRN (15:53)
--- NOTE | 2019-03-30 16:34 | Internal Med History&Physical ---
Date of Encounter: 03/30/19 Time of Encounter: 16:32 Internal Medicine - H&P: HPI Chief complaint: Intractable Nausea and Vomiting Admitted From: Home Plans for Post Hospital Care: Home History of present illness: Ms. Barajas is a 53 year old female with complex medical history consisting of Crohn's disease, SLE, ischemic and nonischemic cardiomyopathy with diastolic heart failure, among others presents with intractable nausea and vomiting. Patient states that she was in her normal state of health 3 days ago when sy mptoms came on. Associates her symptoms to her multiple chronic diseases, but does not think that she is in Crohn's or lupus flare currently. Says that these symptoms can come on randomly without any particular reason because of her comorbidities. Does have left lower quadrant pain became on doing the same timeframe but says that this is mild. Has been vomiting up water because she has not been able to eat. Denies hematemesis. Has infrequent loose stools but nonbloody and no melena. Endorses fevers and chills. Chronic shortness of breath and cough that is not worse than her usual. In the ED, VSS. WBC 8.1. K 2.3. Cr 1.01 (BL .6). UA with ketones and small LE. CXR and CT abd/pevlis w/o acute pathology. Admitted to medicine. Past Med Surg Social Fam HX - Past Medical History Medical history: arthritis, CHF, COPD, coronary artery disease, fibromyalgia, GERD, GI bleed, hyperlipidemia, hypertension, myocardial infarction, osteoporosis, peripheral artery disease, renal disease, thyroid disease Additional medical history: Lupus Psychiatric history: anxiety, depression - Past Surgical History Surgical History: angioplasty/stent, hysterectomy, orthopedic, other, other Additional surgical history: kidney stent. Ortho. Stomach. Heart cath - Social History Smoking Status: Former smoker Smokeless Tobacco Status: No Alcohol use: none Drug use: none - Family History Father Living Status: Mother Adopted: No Family Member Ethnicity: Non- Living Status: Still Living Hx Family Cardiac Disorders: Yes (stroke) Hx Family Respiratory Disorders: No Hx Family Cancer: Yes (Skin) Hx Family GI Disorders: Yes (diverticulosis) Hx Family Endocrine Disorder: Yes (lupus, addisons) Hx Family Neuromuscular Disorders: No Hx Family Neurologic Disorders: No Hx Family HEENT Disorders: No Hx Family Autoimmune Disorders: Yes (Rheumatory Arthritis, Seasonal Allergies, Lupus) Internal Medicine - H&P: Meds Aspirin Enteric Coated [Aspirin EC] 81 mg PO QAM 05/20/15 [History] Cyanocobalamin (Vitamin B-12) [Vitamin B-12] 250 mcg PO DAILY 05/20/15 [History] Esomeprazole Magnesium [Nexium] 40 mg PO QAM 05/20/15 [History] Losartan [Cozaar] 50 mg PO 0900,1500 05/20/15 [History] Butalbital/Aspirin/Caffeine [Fiorinal 50-325-40 mg Capsule] 1 tab PO Q6H PRN 07/01/16 [History] Levalbuterol HCl [Xopenex Neb] 1.25 mg IH Q6H PRN #30 vial.neb 06/07/17 [Rx] hydroCHLOROthiazide [Hydrochlorothiazide] 25 mg PO DAILY #30 tablet 06/07/17 [Rx] Amitriptyline [Elavil] 25 mg PO HS 07/23/17 [History] amLODIPine [Norvasc] 5 mg PO DAILY #30 tablet 07/24/17 [Rx] Cyclobenzaprine [Flexeril] 10 mg PO BID PRN #15 tablet 09/21/17 [Rx] cloNIDine HCl [CloNIDine HCl] 0.1 mg PO TID 02/04/18 [History] hydrALAZINE [HydrALAZINE] 50 mg PO 0900,1500 02/04/18 [History] Clopidogrel [Plavix] 75 mg PO DAILY 07/22/18 [History] Diphenoxylate/Atropine [Lomotil 2.5 mg/0.025 mg] 1 each PO QID PRN 07/22/18 [History] Escitalopram [Lexapro] 10 mg PO DAILY 07/22/18 [History] Furosemide [Lasix] 40 mg PO DAILY PRN 07/22/18 [History] Levothyroxine Sodium 100 mcg PO DAILY 07/22/18 [History] Meclizine HCl [Verticalm] 25 mg PO DAILY 07/22/18 [History] OxyCODONE/APAP 7.5/325 [Percocet 7.5/325 MG] 1 each PO BID PRN 07/22/18 [History] Potassium Chloride [K-Tab ER] 40 meq PO TID 07/22/18 [History] Rosuvastatin Calcium [Crestor] 40 mg PO DAILY 07/22/18 [History] Spironolactone 25 mg PO DAILY 07/22/18 [History] clonazePAM [Clonazepam] 1 mg PO TID 07/22/18 [History] Allergy/AdvReac Type Severity Reaction Status Date / Time codeine Allergy Anaphylaxis Verified 02/17/16 11:36 albuterol AdvReac Shakiness Verified 07/22/18 20:13 olmesartan [From Benicar] AdvReac Nausea Verified 07/01/16 18:35 All Systems PM: A 10-system review of systems was performed and is negative for pertinent findings except as documented above in the HPI. Review of systems: General: Fevers / Chills / Weight loss / Night sweats Eyes: Blurry Vision / Change in Vision HENT: Ear Pain / Ear Drainage / Rhinorrhea / Throat Pain / Lymphadenopathy Cardiovascular: Chest Pain / Palpatations / Orthopnea / BANGURA / Weight gain Lungs: Dyspnea / Wheezing / Cough / Sputum production / Pleurisy Abdomen: Abdomen pain / Abdominal distention / Nausea / Vomiting / Diarrhea / Const : Dysuria / Urinary Frequency / Urinary Urgency / Hematuria Extremities: LE edema / Ext pain / Ext erythema Skin: Rashes / Abrasions / Contusions Psych: Hallucinations / Anxiety / Depression Neuro: Weakness / Numbness / Tingling / Facial Droop / Dysphagia - Constitutional Vitals: Temp Pulse Resp BP Pulse Ox 98.6 F 58 17 124/95 98 03/30/19 11:40 03/30/19 15:14 03/30/19 15:14 03/30/19 15:14 03/30/19 15:14 Exam: General: Ill-appearing and in no acute distress HEENT: No erythema of posterior pharynx. No exudates. Lymphatics: No mandibular or cervical lymphadenopathy Cardiovascular: RRR. No murmurs. No chest wall tenderness. Lungs: Clear to auscelltation bilaterally. Regular chest rise. Abdomen: Mild LLQ tenderness. No rebound or gaurding. Nl bowel sounds. Extremities: No edema. 2+ pulses radial and pedal pulses Skin: No rahses, abrasions, or contusions. Nl cap refill. Psych: Nl attention. A&Ox3 Neuro: monogram maker II-XII intact. 5/5 strength. Sensation to light touch and pinprick intact. Internal Med - H&P Results - Labs CBC & Chem 7: 03/30/19 12:07 03/30/19 12:07 Labs: Short CBC 03/30/19 Range/Units 12:07 WBC 8.1 (4.3-11.1) K/mcL Hgb 17.8 H (11.5-15.4) g/dL Hct 52.4 H (35.3-44.9) % Plt Count 287 (140-400) K/mcL Neutrophils # 5.8 (1.6-8.9) K/mcL BMP 03/30/19 12:07 Sodium 137 Potassium 2.3 L* Chloride 95 L Carbon Dioxide 29 BUN 30 H Creatinine 1.01 Glucose 145 H Calcium 9.4 Cardiac Enzymes 03/30/19 Range/Units 12:07 Troponin I < 0.03 (< 0.04) ng/mL Liver Function 03/30/19 Range/Units 12:07 Total Bilirubin 0.5 (0.3-1.0) mg/dL AST 13 (13-39) Units/L ALT 6 L (7-52) Units/L Alkaline Phosphatase 134 H (34-104) Units/L Albumin 4.5 (3.5-5.7) g/dL Urine 03/30/19 Range/Units 13:41 Urine Color Yellow (Yellow) Urine Clarity Clear (Clear) Urine pH 7.0 (5.0-8.0) pH Units Ur Specific Dickson 1.023 (1.010-1.025) Urine Protein 30 H (Neg-Trace) mg/dL Urine Glucose (UA) Normal (Normal) mg/dL - Impressions ITS Impressions Abdomen/Pelvis CT 03/30/19 11:55 IMPRESSION: 1. No acute intra-abnormality. 2. No acute intrapelvic abnormality. 3. Diverticulosis without obvious inflammation. D/ / Ruddy Lin MD / Ruddy Lin MD Interpreting Provider: Ruddy Lin MD Chest X-Ray 03/30/19 11:56 IMPRESSION: No acute cardiopulmonary disease. D/ / Maryse Euceda MD / Maryse Euceda MD Interpreting Provider: Maryse Euceda MD - Assessment and Plan (1) Intractable nausea and vomiting Current Visit: Yes Status: Acute Assessment and plan: Patient with complex medical history consisting of Crohn's disease and SLE presents with intractable nausea and vomiting in the setting of stable vitals, mild left lower quadrant abdominal tenderness on exam, electrolyte abnormalities, no leukocytosis, questionable infectious UA, and unremarkable im aging. -Cause of acute nausea and vomiting episode unclear: Does not appear that patient is acutely infected Left lower quadrant pain and tenderness but no evidence of colitis signifying Crohn's flare on CT imaging. No symptoms to suggest lupus flare but will obtain inflammatory markers PLAN: - Phenergan and Ativan prn for nausea (less risk for torsades than others) - IVF - Correction of electrolytes Qualifiers: Vomiting type: unspecified Qualified Code(s): R11.2 - Nausea with vomiting, unspecified (2) Hypokalemia Current Visit: Yes Status: Acute Assessment and plan: Had some QT prolonging on EKG - Aggressive correction (3) Crohn disease Current Visit: No Status: Acute Assessment and plan: Concern for acute flare given left lower quadrant pain and tenderness, however, no bloody stool or signs of colitis on imaging. - ESR and CRP Qualifiers: Gastrointestinal tract location: unspecified location Digestive disease complication type: unspecified complication Qualified Code(s): K50.919 - Crohn's disease, unspecified, with unspecified complications (4) Lupus Current Visit: No Status: Acute Assessment and plan: No signs of acute flare currently. - ESR and CRP Qualifiers: Lupus erythematosus form: systemic Systemic lupus erythematosus type: other Systemic lupus erythematosus organ involvement: other Qualified Code(s): M32.19 - Other organ or system involvement in systemic lupus erythematosus (5) CHF (congestive heart failure) Current Visit: No Status: Ruled-out Assessment and plan: Has history of ischemic and nonischemic cardiomyopathy and diastolic heart failure. Takes Lasix as needed. - Follow use of IVF given history of heart failure Qualifiers: Heart failure type: unspecified Heart failure chronicity: unspecified Qualified Code(s): I50.9 - Heart failure, unspecified (6) Prolonged QT interval Current Visit: Yes Status: Acute Assessment and plan: In the setting of hypokalemia. - Hold QT prolonging agents, including home medications amitriptyline and cyclobenzaprine (7) KINGS (acute kidney injury) Current Visit: Yes Status: Acute Assessment and plan: In setting of nausea and vomiting and decreased oral intake. - IVF - Hold diuretics - Time Spent With Patient Total time spent is greater than 50% in coordination of care (as documented) at patient's floor/unit and/or counseling patient: Greater than 35 minutes
[2019-03-30 19:10] LABS: BUN/Creatinine Ratio 32 (6-26); Blood Urea Nitrogen 22 mg/dL (6-20); C-Reactive Protein 7 mg/L (Less than 10); Calcium 8.6 mg/dL (8.6-10.3); Carbon Dioxide 27 mEq/L (23-29); Chloride 101 mEq/L (98-107); Glucose 83 mg/dL (70-105); Magnesium 2.1 mg/dL (1.6-2.6); Osmolality,Calculated 288 (280-300); Phosphorous 2.5 mg/dL (2.7-4.5); Potassium 3.2 mEq/L (3.5-5.1); Sodium 138 mEq/L (136-145); eGFR For African Americans > 60 (> 60); eGFR For Non-African Americans > 60 (> 60)
[2019-03-30] MEDS ORDERED: Acetaminophen IV 500 MG/50 ML INFUS..BTL IVPB ONE (20:05)
[2019-03-30] MEDS: *HR* Promethazine 25 MG/ML VIAL IVP PRN (20:33)
[2019-03-30] MEDS: cloNIDine HCl 0.1 MG TABLET PO SCH (21:45)
[2019-03-30] MEDS: clonazePAM 1 MG TABLET PO SCH (21:45)
[2019-03-31] MEDS: *HR* Promethazine 25 MG/ML VIAL IVP PRN ×6 (00:22→20:31)
[2019-03-31] MEDS ORDERED: Prochlorperazine 10 MG/2 ML VIAL IVP PRN (02:13)
[2019-03-31 04:11] LABS: Basophils # 0.1 K/mcL (0.0-0.2); Basophils % 1.3 %; Eosinophils # 0.1 K/mcL (0.0-0.6); Eosinophils % 1.7 %; Hematocrit 45.1 % (35.3-44.9); Immature Granulocytes % 0.4 % (0-4); Lymphocytes % 43.2 %; Mean Corpuscular HGB Conc 33.5 g/dL (31.6-35.5); Mean Corpuscular Hemoglobin 30.6 pg (28.0-33.3); Mean Corpuscular Volume 91.5 fL (83.0-100.0); Mean Platelet Volume 9.8 fL (9.4-12.4); Monocytes # 0.4 K/mcL (0.0-1.3); Monocytes % 7.9 %; Neutrophils # 2.1 K/mcL (1.6-8.9); Platelet Count 215 K/mcL (140-400); Red Blood Count 4.93 M/mcL (3.82-4.97); Red Cell Distribution Width 13.2 % (11.5-14.5); Segmented Neutrophils % 45.5 %; White Blood Count 4.7 K/mcL (4.3-11.1)
[2019-03-31 04:13] LABS: Hemoglobin 15.1 g/dL (11.5-15.4)
[2019-03-31 04:23] LABS: BUN/Creatinine Ratio 27 (6-26); Blood Urea Nitrogen 20 mg/dL (6-20); Calcium 8.6 mg/dL (8.6-10.3); Carbon Dioxide 29 mEq/L (23-29); Chloride 103 mEq/L (98-107); Glucose 101 mg/dL (70-105); Magnesium 2.1 mg/dL (1.6-2.6); Osmolality,Calculated 291 (280-300); Phosphorous 2.9 mg/dL (2.7-4.5); Potassium 2.6 mEq/L (3.5-5.1); Sodium 139 mEq/L (136-145); eGFR For African Americans > 60 (> 60); eGFR For Non-African Americans > 60 (> 60)
[2019-03-31] MEDS ORDERED: Potassium Chloride 40 MEQ, Lidocaine 1% 2 ML in D5% in Water 500 ML IVPB ONE ×2 (04:33→08:47)
[2019-03-31] MEDS ORDERED: cefTRIAXone 2,000 MG in Water for inj. (sterile) 20 ML IVPB SCH (05:00)
[2019-03-31] MEDS: *HR* OxyCODONE/APAP 7.5/325 TABLET PO PRN ×2 (06:39→20:31)
[2019-03-31] MEDS: Aspirin Enteric Coated 81 MG Tablet PO SCH (08:04)
[2019-03-31] MEDS: clonazePAM 1 MG TABLET PO SCH ×3 (08:04→20:31)
[2019-03-31] MEDS: amLODIPine 5 MG TABLET PO SCH (08:05)
[2019-03-31] MEDS: Cyanocobalamin (B-12) 1,000 MCG TABLET PO SCH (08:05)
[2019-03-31] MEDS: cloNIDine HCl 0.1 MG TABLET PO SCH ×3 (08:07→20:31)
[2019-03-31] MEDS: hydrALAZINE 25 MG TABLET PO SCH ×2 (08:07→14:06)
--- NOTE | 2019-03-31 12:46 | Internal Med Progress Note ---
Hospitalist Progress Note - Encounter Date of Encounter: 03/31/19 Time of Encounter: 12:42 - Subjective Interval History: Patient having intermittent relief of nausea. Gets most relief with Phenergan. Denies symptoms associated with flares of her SLE Crohn's currently. - Exam Vitals: Temp Pulse Resp BP Pulse Ox 97.4 F L 59 17 108/74 98 03/31/19 10:03 03/31/19 10:03 03/31/19 10:03 03/31/19 10:03 03/31/19 10:03 Exam: General: Ill-appearing and in no acute distress HEENT: No erythema of posterior pharynx. No exudates. Lymphatics: No mandibular or cervical lymphadenopathy Cardiovascular: RRR. No murmurs. No chest wall tenderness. Lungs: Clear to auscelltation bilaterally. Regular chest rise. Abdomen: Mild LLQ tenderness. No rebound or gaurding. Nl bowel sounds. Extremities: No edema. 2+ pulses radial and pedal pulses Skin: No rahses, abrasions, or contusions. Nl cap refill. Psych: Nl attention. 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 5/5 strength. Sensation to light touch and pinprick intact. - Assessment and Plan (1) Intractable nausea and vomiting Current Visit: Yes Status: Acute Assessment and Plan: Patient with complex medical history consisting of Crohn's disease and SLE presents with intractable nausea and vomiting in the setting of stable vitals, mild left lower quadrant abdominal tenderness on exam, electrolyte abnor malities, no leukocytosis, questionable infectious UA, and unremarkable imaging. -Cause of acute nausea and vomiting episode unclear: Does not appear that patient is acutely infected Left lower quadrant pain and tenderness but no evidence of colitis signifying Crohn's flare on CT imaging and normal ESR and CRP No symptoms to suggest lupus flare and normal ESR and CRP PLAN: - Will continue to treat supportively and replete electrolytes. Presume this illness will be self-limited - Phenergan and Ativan prn for nausea (less risk for torsades than others) - IVF - Correction of electrolytes (2) Hypokalemia Current Visit: Yes Status: Acute Assessment and Plan: Had some QT prolonging on EKG - Aggressive correction (3) Crohn disease Current Visit: No Status: Acute Assessment and Plan: Concern for acute flare given left lower quadrant pain and tenderness, however, no bloody stool or signs of colitis on imaging. ESR and CRP normal. - Monitor (4) Lupus Current Visit: No Status: Acute Assessment and Plan: No signs of acute flare currently. ESR and CRP normal. - Monitor (5) Prolonged QT interval Current Visit: Yes Status: Acute Assessment and Plan: In the setting of hypokalemia. - Replete K - Hold QT prolonging agents, including home medications amitriptyline and cyclobenzaprine (6) KINGS (acute kidney injury) Current Visit: Yes Status: Acute Assessment and Plan: In setting of nausea and vomiting and decreased oral intake. RESOLVED. - Monitor - Hold diuretics DVT Prophylaxis: lmwh - Time Spent with Patient Total time spent is greater than 50% in coordination of care (as documented) at patient's floor/unit and/or counseling patient: Greater than 35 minutes Plan of Care Discussed with: patient Internal Medicine: Result - Labs CBC & Chem 7: 03/31/19 03:52 03/31/19 11:55 Labs: Short CBC 03/31/19 Range/Units 03:52 WBC 4.7 (4.3-11.1) K/mcL Hgb 15.1 D (11.5-15.4) g/dL Hct 45.1 H (35.3-44.9) % Plt Count 215 (140-400) K/mcL Neutrophils # 2.1 (1.6-8.9) K/mcL BMP 03/30/19 03/30/19 03/31/19 12:07 16:53 03:52 Sodium 137 138 139 Potassium 2.3 L* 3.2 L D 2.6 L Chloride 95 L 101 103 Carbon Dioxide 29 27 29 BUN 30 H 22 H 20 Creatinine 1.01 0.68 0.74 Glucose 145 H 83 101 Calcium 9.4 8.6 8.6 03/31/19 11:55 Sodium Potassium 3.9 D Chloride Carbon Dioxide BUN Creatinine Glucose Calcium Cardiac Enzymes 03/30/19 Range/Units 12:07 Troponin I < 0.03 (< 0.04) ng/mL Liver Function 03/30/19 Range/Units 12:07 Total Bilirubin 0.5 (0.3-1.0) mg/dL AST 13 (13-39) Units/L ALT 6 L (7-52) Units/L Alkaline Phosphatase 134 H (34-104) Units/L Albumin 4.5 (3.5-5.7) g/dL Urine 03/30/19 Range/Units 13:41 Urine Color Yellow (Yellow) Urine Clarity Clear (Clear) Urine pH 7.0 (5.0-8.0) pH Units Ur Specific [place] 1.023 (1.010-1.025) Urine Protein 30 H (Neg-Trace) mg/dL Urine Glucose (UA) Normal (Normal) mg/dL - Impressions Impressions Abdomen/Pelvis CT 03/30/19 11:55 IMPRESSION: 1. No acute intra-abnormality. 2. No acute intrapelvic abnormality. 3. Diverticulosis without obvious inflammation. D/ / Ruddy Lin MD / Ruddy Lin MD Interpreting Provider: Ruddy Lin MD Chest X-Ray 03/30/19 11:56 IMPRESSION: No acute cardiopulmonary disease. D/ / Maryse Euceda MD / Maryse Euceda MD Interpreting Provider: Maryse Euceda MD Consult Discharge Plan - Plan Referrals: Shelton Galaviz MD [Primary Care Provider] - (1) Intractable nausea and vomiting Qualifiers: Vomiting type: unspecified Qualified Code(s): R11.2 - Nausea with vomiting, unspecified (3) Crohn disease Qualifiers: Gastrointestinal tract location: unspecified location Digestive disease complication type: unspecified complication Qualified Code(s): K50.919 - Crohn's disease, unspecified, with unspecified complications (4) Lupus Qualifiers: Lupus erythematosus form: systemic Systemic lupus erythematosus type: other Systemic lupus erythematosus organ involvement: other Qualified Code(s): M32.19 - Other organ or system involvement in systemic lupus erythematosus
[2019-03-31] MEDS: 0.9 % Sodium Chloride 1,000 ML IVC SCH (13:34)
[2019-03-31] MEDS: Levalbuterol Neb 1.25 MG/3 ML IH PRN (19:25)
--- NOTE | 2019-04-01 00:11 | Electrocardiograph Report ---
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
[2019-04-01] MEDS: *HR* Promethazine 25 MG/ML VIAL IVP PRN ×5 (00:48→22:52)
[2019-04-01 04:59] LABS: BUN/Creatinine Ratio 19 (6-26); Blood Urea Nitrogen 13 mg/dL (6-20); Calcium 8.1 mg/dL (8.6-10.3); Carbon Dioxide 27 mEq/L (23-29); Chloride 110 mEq/L (98-107); Glucose 101 mg/dL (70-105); Magnesium 1.8 mg/dL (1.6-2.6); Osmolality,Calculated 290 (280-300); Potassium 3.3 mEq/L (3.5-5.1); Sodium 140 mEq/L (136-145); eGFR For African Americans > 60 (> 60); eGFR For Non-African Americans > 60 (> 60)
[2019-04-01] MEDS: *HR* Enoxaparin 40 MG/0.4 ML SYRINGE SQ SCH (05:45)
[2019-04-01] MEDS: 0.9 % Sodium Chloride 1,000 ML IVC SCH (05:51)
[2019-04-01] MEDS: *HR* OxyCODONE/APAP 7.5/325 TABLET PO PRN ×2 (06:26→22:52)
[2019-04-01] MEDS: clonazePAM 1 MG TABLET PO SCH ×3 (09:26→20:56)
[2019-04-01] MEDS: cloNIDine HCl 0.1 MG TABLET PO SCH ×3 (09:26→20:56)
[2019-04-01] MEDS: amLODIPine 5 MG TABLET PO SCH (09:26)
[2019-04-01] MEDS: hydrALAZINE 25 MG TABLET PO SCH ×2 (09:26→17:21)
[2019-04-01] MEDS: Acetaminophen/Butalbital/CaffeineTABLET PO PRN (09:26)
[2019-04-01] MEDS: Cyanocobalamin (B-12) 1,000 MCG TABLET PO SCH (09:27)
[2019-04-01] MEDS: Aspirin Enteric Coated 81 MG Tablet PO SCH (09:27)
[2019-04-01] MEDS: cefTRIAXone 1,000 MG in Water for inj. (sterile) 10 ML IVP SCH (09:27)
--- NOTE | 2019-04-01 12:58 | Internal Med Progress Note ---
Hospitalist Progress Note - Encounter Date of Encounter: 04/01/19 Time of Encounter: 12:55 - Subjective Interval History: Nausea and vomiting improving. Able to eat a small amount of food this morning. Trying a salad for lunch. Still says that she would would be unable to take oral potassium. - Exam Vitals: Temp Pulse Resp BP Pulse Ox 97.4 F L 52 16 108/70 97 04/01/19 10:54 04/01/19 10:54 04/01/19 10:54 04/01/19 10:54 04/01/19 10:54 Exam: General: Ill-appearing and in no acute distress HEENT: No erythema of posterior pharynx. No exudates. Lymphatics: No mandibular or cervical lymphadenopathy Cardiovascular: RRR. No murmurs. No chest wall tenderness. Lungs: Clear to auscelltation bilaterally. Regular chest rise. Abdomen: Mild LLQ tenderness. No rebound or gaurding. Nl bowel sounds. Extremities: No edema. 2+ pulses radial and pedal pulses Skin: No rahses, abrasions, or contusions. Nl cap refill. Psych: Nl attention. 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 5/5 strength. Sensation to light touch and pinprick intact. - Assessment and Plan (1) Intractable nausea and vomiting Current Visit: Yes Status: Acute Assessment and Plan: Patient with complex medical history consisting of Crohn's disease and SLE presents with intractable nausea and vomiting in the setting of stable vitals, mild left lower quadrant abdominal tenderness on exam, electrolyte abnormalities, no leukocytosis, questionable infectious UA, and unremarkable tony ging. -Cause of acute nausea and vomiting episode unclear: Does not appear that patient is acutely infected Left lower quadrant pain and tenderness but no evidence of colitis signifying Crohn's flare on CT imaging and normal ESR and CRP No symptoms to suggest lupus flare and normal ESR and CRP -Improving overall and starting to take by mouth medications. Anticipate discharge home tomorrow PLAN: - Will continue to treat supportively and replete electrolytes. Presume this illness will be self-limited - Phenergan and Ativan prn for nausea (less risk for torsades than others) - IVF - Correction of electrolytes (2) Hypokalemia Current Visit: Yes Status: Acute Assessment and Plan: Had some QT prolonging on EKG. Still not able to take oral potassium so will need to replete with IV potassium - Aggressive correction (3) Crohn disease Current Visit: No Status: Chronic Assessment and Plan: Concern for acute flare given left lower quadrant pain and tenderness, however, no bloody stool or signs of colitis on imaging. ESR and CRP normal. - Monitor (4) Lupus Current Visit: No Status: Chronic Assessment and Plan: No signs of acute flare currently. ESR and CRP normal. - Monitor (5) Prolonged QT interval Current Visit: Yes Status: Acute Assessment and Plan: In the setting of hypokalemia. Will repeat EKG to monitor QT today. - EKG - Replete K - Hold QT prolonging agents, including home medications amitriptyline and cyclobenzaprine (6) KINGS (acute kidney injury) Current Visit: Yes Status: Resolved Assessment and Plan: In setting of nausea and vomiting and decreased oral intake. RESOLVED. - Monitor - Hold diuretics DVT Prophylaxis: lmwh - Time Spent with Patient Total time spent is greater than 50% in coordination of care (as documented) at patient's floor/unit and/or counseling patient: Internal Medicine: Result - Labs CBC & Chem 7: 03/31/19 03:52 04/01/19 04:25 Labs: BMP 04/01/19 04:25 Sodium 140 Potassium 3.3 L Chloride 110 H Carbon Dioxide 27 BUN 13 Creatinine 0.70 Glucose 101 Calcium 8.1 L Consult Discharge Plan - Plan Referrals: Shelton Galaviz MD [Primary Care Provider] - (1) Intractable nausea and vomiting Qualifiers: Vomiting type: unspecified Qualified Code(s): R11.2 - Nausea with vomiting, unspecified (3) Crohn disease Qualifiers: Gastrointestinal tract location: unspecified location Digestive disease complication type: unspecified complication Qualified Code(s): K50.919 - Crohn's disease, unspecified, with unspecified complications (4) Lupus Qualifiers: Lupus erythematosus form: systemic Systemic lupus erythematosus type: other Systemic lupus erythematosus organ involvement: other Qualified Code(s): M32.19 - Other organ or system involvement in systemic lupus erythematosus
[2019-04-01] MEDS: Levalbuterol Neb 1.25 MG/3 ML IH PRN (19:35)
[2019-04-01 21:33] LABS: BUN/Creatinine Ratio 14 (6-26); Blood Urea Nitrogen 9 mg/dL (6-20); Carbon Dioxide 23 mEq/L (23-29); Chloride 113 mEq/L (98-107); Glucose 150 mg/dL (70-105); Osmolality,Calculated 296 (280-300); Potassium 3.5 mEq/L (3.5-5.1); Sodium 142 mEq/L (136-145); eGFR For African Americans > 60 (> 60); eGFR For Non-African Americans > 60 (> 60)
[2019-04-02] MEDS: *HR* Promethazine 25 MG/ML VIAL IVP PRN ×5 (03:33→20:54)
[2019-04-02] MEDS: *HR* Enoxaparin 40 MG/0.4 ML SYRINGE SQ SCH (03:35)
[2019-04-02] MEDS: 0.9 % Sodium Chloride 1,000 ML IVC SCH (03:35)
[2019-04-02 04:18] LABS: BUN/Creatinine Ratio 14 (6-26); Blood Urea Nitrogen 8 mg/dL (6-20); Calcium 7.8 mg/dL (8.6-10.3); Carbon Dioxide 24 mEq/L (23-29); Chloride 114 mEq/L (98-107); Glucose 118 mg/dL (70-105); Osmolality,Calculated 291 (280-300); Potassium 3.4 mEq/L (3.5-5.1); Sodium 141 mEq/L (136-145); eGFR For African Americans > 60 (> 60); eGFR For Non-African Americans > 60 (> 60)
[2019-04-02] MEDS: Cyanocobalamin (B-12) 1,000 MCG TABLET PO SCH (09:07)
[2019-04-02] MEDS: *HR* OxyCODONE/APAP 7.5/325 TABLET PO PRN ×2 (09:07→20:55)
[2019-04-02] MEDS: cloNIDine HCl 0.1 MG TABLET PO SCH ×3 (09:08→20:55)
[2019-04-02] MEDS: hydrALAZINE 25 MG TABLET PO SCH ×2 (09:08→15:46)
[2019-04-02] MEDS: Aspirin Enteric Coated 81 MG Tablet PO SCH (09:08)
[2019-04-02] MEDS: clonazePAM 1 MG TABLET PO SCH ×3 (09:08→20:55)
[2019-04-02] MEDS: amLODIPine 5 MG TABLET PO SCH (09:08)
[2019-04-02] MEDS: cefTRIAXone 1,000 MG in Water for inj. (sterile) 10 ML IVP SCH (09:09)
--- NOTE | 2019-04-02 12:40 | Internal Med Progress Note ---
Hospitalist Progress Note - Encounter Date of Encounter: 04/02/19 Time of Encounter: 12:35 - Subjective Interval History: Still having nausea. Unable to tolerate oral potassium. Control rate minimal by mouth intake. Upon further history, is having heartburn and says this is chronic for her. Is on omeprazole 40 mg daily of patient. Also notes that in the past she had a heart attack in 2017 and at that time did not have chest pain and just had nausea and vomiting like she does currently. Inquires whether she could be experiencing a heart attack. - Exam Vitals: Temp Pulse Resp BP Pulse Ox 97.6 F 55 16 116/72 98 04/02/19 10:46 04/02/19 10:46 04/02/19 10:46 04/02/19 10:46 04/02/19 10:46 Exam: General: Ill-appearing and in no acute distress HEENT: No erythema of posterior pharynx. No exudates. Lymphatics: No mandibular or cervical lymphadenopathy Cardiovascular: RRR. No murmurs. No chest wall tenderness. Lungs: Clear to auscelltation bilaterally. Regular chest rise. Abdomen: Mild LLQ tenderness. No rebound or gaurding. Nl bowel sounds. Extremities: No edema. 2+ pulses radial and pedal pulses Skin: No rahses, abrasions, or contusions. Nl cap refill. Psych: Nl attention. 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 5/5 strength. Sensation to light touch and pinprick intact. - Assessment and Plan (1) Intractable nausea and vomiting Current Visit: Yes Status: Acute Assessment and Plan: Patient with complex medical history consisting of Crohn's disease and SLE presents with intractable nausea and vomiting in the setting of stable vitals, mild left lower quadrant abdominal tenderness on exam, electrolyte abnormalities, no leukocytosis, questionable infectious UA, and unremarkable imaging. -Cause of acute nausea and vomiting episode unclear: Does not appear that patient is acutely infected Left lower quadrant pain and tenderness but no evidence of colitis signifying Crohn's flare on CT imaging and normal ESR and CRP No symptoms to suggest lupus flare and normal ESR and CRP -Still having nausea and unable to take by mouth potassium -Upon further history, is having heartburn and says this is chronic for her: Is on omeprazole 40 mg daily outpatient PUD could be contributing to nausea and multiple trial IV PPI to see if this improves nausea -Also notes that in the past she had a heart attack in 2017: At that time states that she did not have chest pain and troponin was not elevated Just had nausea and vomiting like she does currently. Inquires whether she could be experiencing a heart attack. Reviewing past records, she did have a troponin elevation and chest pain during that admission. Upon on this admission was negative PLAN: - Troponin - IV PPI bid trial to see if it improves her symptoms - Will continue to treat supportively and replete electrolytes. - Phenergan and Ativan prn for nausea (less risk for torsades than others) - IVF - Correction of electrolytes (2) Hypokalemia Current Visit: Yes Status: Acute Assessment and Plan: Had some QT prolonging on EKG. Still not able to take oral potassium so will need to replete with IV potassium - Aggressive correction (3) Crohn disease Current Visit: No Status: Chronic Assessment and Plan: Concern for acute flare given left lower quadrant pain and tenderness, however, no bloody stool or signs of colitis on imaging. ESR and CRP normal. - Monitor (4) Lupus Current Visit: No Status: Chronic Assessment and Plan: No signs of acute flare currently. ESR and CRP normal. - Monitor (5) Prolonged QT interval Current Visit: Yes Status: Acute Assessment and Plan: In the setting of hypokalemia. Repeat EKG with normal QT. - Replete K - Hold QT prolonging agents, including home medications amitriptyline and cyclobenzaprine (6) KINGS (acute kidney injury) Current Visit: Yes Status: Resolved Assessment and Plan: In setting of nausea and vomiting and decreased oral intake. RESOLVED. - Monitor - Hold diuretics DVT Prophylaxis: lmwh Internal Medicine: Result - Labs CBC & Chem 7: 03/31/19 03:52 04/02/19 03:50 Labs: BMP 04/01/19 04/02/19 20:40 03:50 Sodium 142 141 Potassium 3.5 3.4 L Chloride 113 H 114 H Carbon Dioxide 23 24 BUN 9 8 Creatinine 0.65 0.59 L Glucose 150 H 118 H Calcium 8.0 L 7.8 L Consult Discharge Plan - Plan Referrals: Shelton Galaviz MD [Primary Care Provider] - _ (1) Intractable nausea and vomiting Qualifiers: Vomiting type: unspecified Qualified Code(s): R11.2 - Nausea with vomiting, unspecified (3) Crohn disease Qualifiers: Gastrointestinal tract location: unspecified location Digestive disease complication type: unspecified complication Qualified Code(s): K50.919 - Crohn's disease, unspecified, with unspecified complications (4) Lupus Qualifiers: Lupus erythematosus form: systemic Systemic lupus erythematosus type: other Systemic lupus erythematosus organ involvement: other Qualified Code(s): M32.19 - Other organ or system involvement in systemic lupus erythematosus
[2019-04-02] MEDS: Pantoprazole 40 MG VIAL IVP SCH ×2 (13:08→17:31)
[2019-04-02 18:11] LABS: BUN/Creatinine Ratio 13 (6-26); Blood Urea Nitrogen 9 mg/dL (6-20); Calcium 8.3 mg/dL (8.6-10.3); Carbon Dioxide 24 mEq/L (23-29); Chloride 114 mEq/L (98-107); Glucose 106 mg/dL (70-105); Osmolality,Calculated 293 (280-300); Potassium 4.2 mEq/L (3.5-5.1); Sodium 142 mEq/L (136-145); eGFR For African Americans > 60 (> 60); eGFR For Non-African Americans > 60 (> 60)
[2019-04-03] MEDS: *HR* Promethazine 25 MG/ML VIAL IVP PRN ×6 (03:20→23:29)
[2019-04-03] MEDS: *HR* Enoxaparin 40 MG/0.4 ML SYRINGE SQ SCH (03:20)
[2019-04-03] MEDS: 0.9 % Sodium Chloride 1,000 ML IVC SCH ×3 (03:21→17:12)
[2019-04-03] MEDS: Pantoprazole 40 MG VIAL IVP SCH ×2 (03:21→17:14)
[2019-04-03] MEDS: *HR* OxyCODONE/APAP 7.5/325 TABLET PO PRN ×2 (03:21→19:43)
[2019-04-03] MEDS: Acetaminophen/Butalbital/CaffeineTABLET PO PRN ×3 (06:19→23:28)
[2019-04-03] MEDS: amLODIPine 5 MG TABLET PO SCH (07:27)
[2019-04-03] MEDS: hydrALAZINE 25 MG TABLET PO SCH ×2 (07:27→14:56)
[2019-04-03] MEDS: Cyanocobalamin (B-12) 1,000 MCG TABLET PO SCH (07:28)
[2019-04-03] MEDS: cloNIDine HCl 0.1 MG TABLET PO SCH ×3 (07:28→19:43)
[2019-04-03] MEDS: Aspirin Enteric Coated 81 MG Tablet PO SCH (07:28)
[2019-04-03] MEDS: clonazePAM 1 MG TABLET PO SCH ×3 (07:28→19:43)
[2019-04-03 10:14] LABS: BUN/Creatinine Ratio 13 (6-26); Blood Urea Nitrogen 9 mg/dL (6-20); Calcium 8.2 mg/dL (8.6-10.3); Carbon Dioxide 24 mEq/L (23-29); Glucose 123 mg/dL (70-105); eGFR For African Americans > 60 (> 60); eGFR For Non-African Americans > 60 (> 60)
[2019-04-03 10:19] LABS: Chloride 112 mEq/L (98-107); Osmolality,Calculated 290 (280-300); Sodium 140 mEq/L (136-145)
--- NOTE | 2019-04-03 10:36 | Electrocardiograph Report ---
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
--- NOTE | 2019-04-03 10:50 | Electrocardiograph Report ---
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
[2019-04-03] MEDS ORDERED: Ringers Solution, Lactated 500 ML IVC ONE ×2 (13:15→14:15)
[2019-04-03] MEDS ORDERED: Ringers Solution, Lactated 1,000 ML ONE (13:20)
--- NOTE | 2019-04-03 13:57 | Internal Med Progress Note ---
Hospitalist Progress Note - Encounter Date of Encounter: 04/03/19 Time of Encounter: 13:53 - Subjective Interval History: Patient still with persistent nausea. Claims that she feels that something "just is not right." She requests to stay in the hospital because unable to take her potassium at home. - Exam Vitals: Temp Pulse Resp BP Pulse Ox 97.9 F 53 16 138/82 97 04/03/19 09:59 04/03/19 09:59 04/03/19 09:59 04/03/19 09:59 04/03/19 09:59 Exam: General: Ill-appearing and in no acute distress HEENT: No erythema of posterior pharynx. No exudates. Lymphatics: No mandibular or cervical lymphadenopathy Cardiovascular: RRR. No murmurs. No chest wall tenderness. Lungs: Clear to auscelltation bilaterally. Regular chest rise. Abdomen: Mild LLQ tenderness. No rebound or gaurding. Nl bowel sounds. Extremities: No edema. 2+ pulses radial and pedal pulses Skin: No rahses, abrasions, or contusions. Nl cap refill. Psych: Nl attention. A&Ox3 Neuro: pad cutter II-XII intact. 5/5 strength. Sensation to light touch and pinprick intact. - Assessment and Plan (1) Intractable nausea and vomiting Current Visit: Yes Status: Acute Assessment and Plan: Patient with complex medical history consisting of Crohn's disease and SLE presents with intractable nausea and vomiting in the setting of stable vitals, mild left lower quadrant abdominal tenderness on exam, electrolyte abnormalities, no leukocytosis, questionable infectious UA, and unremarkable imaging. -Cause of acute nausea and vomiting episode unclear: Does not appear that patient is acutely infected Left lower quadrant pain and tenderness but no evidence of colitis signifying Crohn's flare on CT imaging and normal ESR and CRP No symptoms to suggest lupus flare and normal ESR and CRP -Still having nausea and unable to take by mouth potassium -Upon further history, is having heartburn and says this is chronic for her: Is on omeprazole 40 mg daily outpatient PUD could be contributing to nausea and multiple trial IV PPI to see if this improves nausea Some mild improvement - will continue IV PPI today -Also notes that in the past she had a heart attack in 2017: At that time states that she did not have chest pain and troponin was not elevated Just had nausea and vomiting like she does currently. Inquires whether she co uld be experiencing a heart attack. Reviewing past records, she did have a troponin elevation and chest pain during that admission. Upon on this admission was negative Troponin on admission and yesterday negative -No medical etiology for nausea and vomiting found. Will hydrate today with IVF and have physical therapy see her - Hope to discharge in next 24 hours PLAN: - IVF - IV PPI bid trial - Will continue to treat supportively and replete electrolytes. - Phenergan and Ativan prn for nausea (less risk for torsades than others) - Correction of electrolytes (2) Crohn disease Current Visit: No Status: Chronic Assessment and Plan: Concern for acute flare given left lower quadrant pain and tenderness, however, no bloody stool or signs of colitis on imaging. ESR and CRP normal. - Monitor (3) Lupus Current Visit: No Status: Chronic Assessment and Plan: No signs of acute flare currently. ESR and CRP normal. - Monitor (4) Prolonged QT interval Current Visit: Yes Status: Resolved Assessment and Plan: In the setting of hypokalemia. Repeat EKG with normal QT. - Replete K as needed - Hold QT prolonging agents, including home medications amitriptyline and cyclobenzaprine (5) KINGS (acute kidney injury) Current Visit: Yes Status: Resolved Assessment and Plan: In setting of nausea and vomiting and decreased oral intake. RESOLVED. - Monitor - Hold diuretics (6) Hypokalemia Current Visit: Yes Status: Resolved Assessment and Plan: Had some QT prolonging on EKG. Still not able to take oral potassium so will need to replete with IV potassium - Aggressive correction DVT Prophylaxis: lmwh Internal Medicine: Result - Labs CBC & Chem 7: 03/31/19 03:52 04/03/19 09:35 Labs: BMP 04/02/19 04/03/19 17:35 09:35 Sodium 142 140 Potassium 4.2 4.0 Chloride 114 H 112 H Carbon Dioxide 24 24 BUN 9 9 Creatinine 0.69 0.71 Glucose 106 H 123 H Calcium 8.3 L 8.2 L Cardiac Enzymes 04/02/19 Range/Units 13:06 Troponin I < 0.03 (< 0.04) ng/mL Consult Discharge Plan - Plan Referrals: Shelton Galaviz MD [Primary Care Provider] - (1) Intractable nausea and vomiting Qualifiers: Vomiting type: unspecified Qualified Code(s): R11.2 - Nausea with vomiting, unspecified (2) Crohn disease Qualifiers: Gastrointestinal tract location: unspecified location Digestive disease complication type: unspecified complication Qualified Code(s): K50.919 - Crohn's disease, unspecified, with unspecified complications (3) Lupus Qualifiers: Lupus erythematosus form: systemic Systemic lupus erythematosus type: other Systemic lupus erythematosus organ involvement: other Qualified Code(s): M32.19 - Other organ or system involvement in systemic lupus erythematosus
[2019-04-04] MEDS: *HR* Promethazine 25 MG/ML VIAL IVP PRN ×3 (03:24→12:33)
[2019-04-04] MEDS: *HR* Enoxaparin 40 MG/0.4 ML SYRINGE SQ SCH (04:23)
[2019-04-04] MEDS: Pantoprazole 40 MG VIAL IVP SCH (04:23)
[2019-04-04] MEDS: *HR* OxyCODONE/APAP 7.5/325 TABLET PO PRN ×2 (04:23→12:33)
[2019-04-04 05:15] LABS: Basophils % 0.8 %; Eosinophils # 0.2 K/mcL (0.0-0.6); Eosinophils % 3.2 %; Immature Granulocytes % 0.2 % (0-4); Lymphocytes # 2.1 K/mcL (0.6-4.6); Mean Corpuscular HGB Conc 31.8 g/dL (31.6-35.5); Mean Corpuscular Hemoglobin 29.8 pg (28.0-33.3); Mean Corpuscular Volume 93.9 fL (83.0-100.0); Mean Platelet Volume 10.1 fL (9.4-12.4); Monocytes # 0.4 K/mcL (0.0-1.3); Monocytes % 7.4 %; Neutrophils # 2.1 K/mcL (1.6-8.9); Platelet Count 188 K/mcL (140-400); Red Blood Count 4.26 M/mcL (3.82-4.97); Red Cell Distribution Width 13.9 % (11.5-14.5); Segmented Neutrophils % 43.4 %; White Blood Count 4.7 K/mcL (4.3-11.1)
[2019-04-04 05:16] LABS: Hemoglobin 12.7 g/dL (11.5-15.4)
[2019-04-04 05:17] LABS: BUN/Creatinine Ratio 17 (6-26); Blood Urea Nitrogen 11 mg/dL (6-20); Carbon Dioxide 24 mEq/L (23-29); Chloride 113 mEq/L (98-107); Glucose 92 mg/dL (70-105); Osmolality,Calculated 291 (280-300); Potassium 3.7 mEq/L (3.5-5.1); Sodium 141 mEq/L (136-145); eGFR For African Americans > 60 (> 60); eGFR For Non-African Americans > 60 (> 60)
[2019-04-04] MEDS: hydrALAZINE 25 MG TABLET PO SCH (08:04)
[2019-04-04] MEDS: amLODIPine 5 MG TABLET PO SCH (08:06)
[2019-04-04] MEDS: clonazePAM 1 MG TABLET PO SCH (08:06)
[2019-04-04] MEDS: cloNIDine HCl 0.1 MG TABLET PO SCH (08:06)
[2019-04-04] MEDS: Aspirin Enteric Coated 81 MG Tablet PO SCH (08:06)
[2019-04-04] MEDS: Cyanocobalamin (B-12) 1,000 MCG TABLET PO SCH (08:07)
[2019-04-04] MEDS: 0.9 % Sodium Chloride 1,000 ML IVC SCH (09:18)
[2019-04-04] MEDS: Acetaminophen/Butalbital/CaffeineTABLET PO PRN (09:28)
[2019-04-04] MEDS ORDERED: Potassium Chloride Elixir 20 MEQ/15 ML UDC PO ONE (10:20)
--- NOTE | 2019-04-04 10:39 | Discharge Summary ---
Date of Encounter: 04/04/19 Time of Encounter: 10:29 - Discharge Diagnosis (1) Intractable nausea and vomiting Priority: Primary Status: Acute Qualifiers: Vomiting type: unspecified Qualified Code(s): R11.2 - Nausea with vomiting, unspecified (2) PUD (peptic ulcer disease) Priority: Secondary Status: Acute (3) Crohn disease Priority: Secondary Status: Chronic Qualifiers: Gastrointestinal tract location: unspecified location Digestive disease complication type: unspecified complication Qualified Code(s): K50.919 - Crohn's disease, unspecified, with unspecified complications (4) Lupus Priority: Secondary Status: Chronic Qualifiers: Lupus erythematosus form: systemic Systemic lupus erythematosus type: other Systemic lupus erythematosus organ involvement: other Qualified Code(s): M3 2.19 - Other organ or system involvement in systemic lupus erythematosus (5) Prolonged QT interval Priority: Secondary Status: Resolved (6) KINGS (acute kidney injury) Priority: Secondary Status: Resolved (7) Hypokalemia Priority: Secondary Status: Resolved Hospital course: Ms. Barajas is a 53 year old female with complex medical history consisting of Crohn's disease and SLE presented with intractable nausea and vomiting with electrolyte abnormalities. After ruling out ACS, Crohn's flare, and SLE flare as cause symptoms, no definitive cause for nausea and vomiting was found, however, may be related to PUD given patient also complaining of heartburn symptoms not controlled with her low-dose PPI outpatient. Treated her nausea with Phenergan and twice a day PPI in the hospital, which patient was sent home on because she endorsed relief with this. Also could not tolerate her oral potassium pills so was switched to liquid potassium to go home on. Patient will need to follow closely with primary care provider and have potassium rechecked by the end of the week given patient may have altered absorption with liquid dosing of potassium. - Time Spent with Patient Total time spent providing and/or coordinating discharge services: 120 minutes Time spent: Greater than 30 minutes - Discharge Medications Prescriptions: New Omeprazole [PriLOSEC] 40 mg PO BIDAC #120 capsule.dr Mooney Losartan [Cozaar] 50 mg PO BID Cyanocobalamin (Vitamin B-12) [Vitamin B-12] 250 mcg PO DAILY Aspirin Enteric Coated [Aspirin EC] 81 mg PO QAM Butalbital/Aspirin/Caffeine [Fiorinal 50-325-40 mg Capsule] 1 tab PO Q6H PRN PRN Reason: Migraine Headache hydroCHLOROthiazide [Hydrochlorothiazide] 25 mg PO DAILY #30 tablet Amitriptyline [Elavil] 25 mg PO HS amLODIPine [Norvasc] 5 mg PO DAILY #30 tablet Cyclobenzaprine [Flexeril] 10 mg PO BID PRN #15 tablet PRN Reason: Pain cloNIDine HCl [CloNIDine HCl] 0.1 mg PO TID hydrALAZINE [HydrALAZINE] 50 mg PO 0900,1500 Escitalopram [Lexapro] 10 mg PO DAILY Clopidogrel [Plavix] 75 mg PO DAILY Meclizine HCl [Verticalm] 25 mg PO BID Levothyroxine Sodium 100 mcg PO DAILY OxyCODONE/APAP 7.5/325 [Percocet 7.5/325 MG] 1 each PO BID PRN PRN Reason: Pain Rosuvastatin Calcium [Crestor] 40 mg PO DAILY Diphenoxylate/Atropine [Lomotil 2.5 mg/0.025 mg] 1 each PO QID PRN PRN Reason: Diarrhea Furosemide [Lasix] 40 mg PO DAILY PRN PRN Reason: SWELLING Spironolactone 25 mg PO DAILY Albuterol Neb [AccuNeb] 3 ml PO Q6H PRN PRN Reason: Shortness Of Breath Carvedilol 3.125 mg PO BID clonazePAM [Clonazepam] 1 mg PO TID Levalbuterol [Xopenex INH] 1 puff IH Q6H PRN PRN Reason: Shortness Of Breath Promethazine [Phenergan] 25 mg PO Q8H PRN PRN Reason: Nausea Discontinued Esomeprazole Magnesium [Nexium] 40 mg PO QAM Potassium Chloride [K-Tab ER] 40 meq PO TID Home Medications: Aspirin Enteric Coated [Aspirin EC] 81 mg PO QAM 05/20/15 [History] Cyanocobalamin (Vitamin B-12) [Vitamin B-12] 250 mcg PO DAILY 05/20/15 [History] Losartan [Cozaar] 50 mg PO BID 05/20/15 [History] Butalbital/Aspirin/Caffeine [Fiorinal 50-325-40 mg Capsule] 1 tab PO Q6H PRN 07/01/16 [History] hydroCHLOROthiazide [Hydrochlorothiazide] 25 mg PO DAILY #30 tablet 09/25/17 [Rx] Amitriptyline [Elavil] 25 mg PO HS 07/23/17 [History] amLODIPine [Norvasc] 5 mg PO DAILY #30 tablet 07/24/17 [Rx] Cyclobenzaprine [Flexeril] 10 mg PO BID PRN #15 tablet 09/21/17 [Rx] cloNIDine HCl [CloNIDine HCl] 0.1 mg PO TID 02/04/18 [History] hydrALAZINE [HydrALAZINE] 50 mg PO 0900,1500 02/04/18 [History] Clopidogrel [Plavix] 75 mg PO DAILY 07/22/18 [History] Diphenoxylate/Atropine [Lomotil 2.5 mg/0.025 mg] 1 each PO QID PRN 07/22/18 [History] Escitalopram [Lexapro] 10 mg PO DAILY 07/22/18 [History] Furosemide [Lasix] 40 mg PO DAILY PRN 07/22/18 [History] Levothyroxine Sodium 100 mcg PO DAILY 07/22/18 [History] Meclizine HCl [Verticalm] 25 mg PO BID 07/22/18 [History] OxyCODONE/APAP 7.5/325 [Percocet 7.5/325 MG] 1 each PO BID PRN 07/22/18 [History] Rosuvastatin Calcium [Crestor] 40 mg PO DAILY 07/22/18 [History] Spironolactone 25 mg PO DAILY 07/22/18 [History] Albuterol Neb [AccuNeb] 3 ml PO Q6H PRN 03/31/19 [History] Carvedilol 3.125 mg PO BID 03/31/19 [History] Levalbuterol [Xopenex INH] 1 puff IH Q6H PRN 03/31/19 [History] Promethazine [Phenergan] 25 mg PO Q8H PRN 03/31/19 [History] clonazePAM [Clonazepam] 1 mg PO TID 03/31/19 [History] Omeprazole [PriLOSEC] 40 mg PO BIDAC #120 capsule. 04/04/19 [Rx] Allergies/Adverse Reactions: Allergy/AdvReac Type Severity Reaction Status Date / Time codeine Allergy Anaphylaxis Verified 03/31/19 17:23 albuterol AdvReac Shakiness Verified 03/31/19 17:23 olmesartan [From Benicar] AdvReac Nausea Verified 03/31/19 17:23 Date of admission: 03/30/19 17:33 Primary care physician: Shelton Galaviz MD Consults: 04/03/19 13:13 Consult to Physical Therapy [CONS] Routine Comment: Evaluate, develop and implement POC Reason for Consult: eval and treat for generalized weakness. pt from home with . Does patient have active BEDREST order?: No Is patient medically & hemodynamically stable?: Yes - Constitutional Vitals: Temp Pulse Resp BP Pulse Ox 97.7 F 58 15 158/83 97 04/04/19 07:09 04/04/19 07:09 04/04/19 07:09 04/04/19 07:09 04/04/19 08:05 Exam: General: Ill-appearing and in no acute distress HEENT: No erythema of posterior pharynx. No exudates. Lymphatics: No mandibular or cervical lymphadenopathy Cardiovascular: RRR. No murmurs. No chest wall tenderness. Lungs: Clear to auscelltation bilaterally. Regular chest rise. Abdomen: Non-tender. No rebound or gaurding. Nl bowel sounds. Extremities: No edema. 2+ pulses radial and pedal pulses Skin: No rahses, abrasions, or contusions. Nl cap refill. Psych: Nl attention. A&Ox3 Neuro: city director II-XII intact. 5/5 strength. Sensation to light touch and pinprick intact. - Patient Status Disposition: Home, Self-Care Functional capacity at discharge: wheelchair bound Overall status at discharge: patient is progressing back to baseline - Discharge Instructions Follow Up With: Shelton Galaviz MD [Primary Care Provider] - - Diet and Activity Activity: increase activity as tolerated Diet: advance to your usual diet
[2019-04-04 10:56] VITALS: BP 120/69
[2019-04-04] MEDS ORDERED: Potassium Chloride Elixir 20 MEQ/15 ML UDC PO SCH (21:00)
== END 2019-04-04 13:08 | disposition home or self-care (01) | DRG 384 ==
LOC: EMEROOARM 11:26 → 3ANU 11:26
PROVIDERS: ADMIT Student in an Organized Health Care Education/Training Program; ATTEND Student in an Organized Health Care Education/Training Program

== ENCOUNTER 2020-03-05 15:28 | Observation (INO) ==
[2020-03-05] MEDS ORDERED: Isovue-370 500 ML BOTTLE IVP ONE (15:50)
[2020-03-05] MEDS ORDERED: *HR* FentaNYL (PF) 100 MCG/2 ML VIAL IVP ONE (15:57)
[2020-03-05] MEDS ORDERED: Ondansetron 4 MG/2 ML VIAL IVP ONE (15:57)
[2020-03-05] MEDS ORDERED: 0.9 % Sodium Chloride 1,000 ML IVC ONE (15:57)
[2020-03-05 16:44] LABS: INR 1.1; Prothrombin Time 12.5 Seconds (9.4-12.1)
[2020-03-05 16:46] LABS: Activated Partial Thrombo Time 41.8 Seconds (26.0-36.0)
[2020-03-05 17:01] LABS: Alanine Aminotransferase 11 Units/L (7-52); Albumin 4.2 g/dL (3.5-5.7); Albumin/Globulin Ratio 1.8 (1.1-2.2); Alkaline Phosphatase 123 Units/L (34-104); Aspartate Amino Transferase 14 Units/L (13-39); BUN/Creatinine Ratio 22 (6-26); Bilirubin,Direct 0.1 mg/dL (0.0-0.2); Bilirubin,Indirect 0.2 mg/dL (0.0-1.0); Bilirubin,Total 0.3 mg/dL (0.3-1.0); Blood Urea Nitrogen 17 mg/dL (6-20); Calcium 8.7 mg/dL (8.6-10.3); Carbon Dioxide 32 mEq/L (23-29); Chloride 97 mEq/L (98-107); Globulin 2.4 g/dL (2.4-3.5); Glucose 129 mg/dL (70-105); Osmolality,Calculated 287 (280-300); Potassium 2.2 mEq/L (3.5-5.1); Sodium 137 mEq/L (136-145); Total Protein 6.6 g/dL (6.4-8.9); Troponin I < 0.03 ng/mL (< 0.04); eGFR For African Americans > 60 (> 60); eGFR For Non-African Americans > 60 (> 60)
[2020-03-05] MEDS ORDERED: Potassium Chloride 40 MEQ, Lidocaine 1% 2 ML in 0.9 % Sodium Chloride 500 ML IVPB ONE (17:15)
[2020-03-05] MEDS ORDERED: Potassium Chloride Elixir 20 MEQ/15 ML UDC PO ONE (17:15)
[2020-03-05 17:35] LABS: Basophils # 0.1 K/mcL (0.0-0.2); Basophils % 0.5 %; Eosinophils # 0.1 K/mcL (0.0-0.6); Hematocrit 46.2 % (35.3-44.9); Hemoglobin 15.4 g/dL (11.5-15.4); Immature Granulocytes % 0.4 % (0-4); Lymphocytes # 2.5 K/mcL (0.6-4.6); Lymphocytes % 22.1 %; Mean Corpuscular HGB Conc 33.3 g/dL (31.6-35.5); Mean Corpuscular Hemoglobin 31.5 pg (28.0-33.3); Mean Corpuscular Volume 94.5 fL (83.0-100.0); Mean Platelet Volume 9.4 fL (9.4-12.4); Monocytes # 0.7 K/mcL (0.0-1.3); Monocytes % 5.8 %; Neutrophils # 8.1 K/mcL (1.6-8.9); Platelet Count 283 K/mcL (140-400); Red Blood Count 4.89 M/mcL (3.82-4.97); Red Cell Distribution Width 13.2 % (11.5-14.5); Segmented Neutrophils % 70.2 %; White Blood Count 11.5 K/mcL (4.3-11.1)
[2020-03-05 17:49] LABS: Magnesium 1.9 mg/dL (1.6-2.6)
[2020-03-05] MEDS ORDERED: Naloxone 0.4 MG/ML INJ IVP PRN (18:22)
[2020-03-05 19:58] LABS: BUN/Creatinine Ratio 22 (6-26); Blood Urea Nitrogen 13 mg/dL (6-20); Calcium 7.8 mg/dL (8.6-10.3); Carbon Dioxide 26 mEq/L (23-29); Chloride 105 mEq/L (98-107); Glucose 94 mg/dL (70-105); Magnesium 1.9 mg/dL (1.6-2.6); Osmolality,Calculated 286 (280-300); Sodium 138 mEq/L (136-145); eGFR For African Americans > 60 (> 60); eGFR For Non-African Americans > 60 (> 60)
[2020-03-05 20:10] LABS: Bilirubin,Urine Negative (Negative); Blood,Urine Negative (Negative); Clarity,Urine Clear (Clear); Color,Urine Colorless (Yellow); Glucose,Urine (UA) Normal (Normal); Ketones,Urine Negative (Negative); Leukocyte Esterase,Urine Negative (Negative); Nitrite,Urine Negative (Negative); PH,Urine 7.5 pH Units (5.0-8.0); Protein,Urine Trace mg/dL (Neg-Trace); Specific Gravity,Urine > 1.030 (1.010-1.025); Urobilinogen,Urine Normal (Normal)
[2020-03-05] MEDS ORDERED: Furosemide 40 MG TABLET PO PRN (21:43)
[2020-03-05] MEDS ORDERED: Acetaminophen/Butalbital/CaffeineTABLET PO PRN (21:43)
[2020-03-05] MEDS ORDERED: Diphenoxylate/Atropine 1 TAB TABLET PO PRN ×2 (21:43)
[2020-03-05] MEDS ORDERED: cloNIDine HCL 0.1 MG TABLET PO ONE (22:17)
[2020-03-05] MEDS: *HR* OxyCODONE/APAP 7.5/325 TABLET PO PRN (22:39)
[2020-03-05] MEDS: clonazePAM 1 MG TABLET PO PRN (22:39)
[2020-03-06] MEDS ORDERED: Levalbuterol 1 PUFF INHALER IH PRN
[2020-03-06] MEDS: carvediloL 6.25 MG TABLET PO SCH ×2 (08:08→16:58)
[2020-03-06] MEDS: cloNIDine HCL 0.1 MG TABLET PO SCH ×3 (08:09→20:12)
[2020-03-06] MEDS: amLODIPine 5 MG TABLET PO SCH (08:09)
[2020-03-06] MEDS: hydroCHLOROthiazide 25 MG TABLET PO SCH (08:09)
[2020-03-06] MEDS: Spironolactone 25 MG TABLET PO SCH (08:10)
[2020-03-06] MEDS: Cyanocobalamin (B-12) 1,000 MCG TABLET PO SCH (08:10)
[2020-03-06] MEDS ORDERED: Potassium Chloride Elixir 20 MEQ/15 ML UDC PO SCH (09:00)
[2020-03-06] MEDS ORDERED: Aspirin Enteric Coated 81 MG Tablet PO SCH (09:00)
[2020-03-06] MEDS: *HR* OxyCODONE/APAP 7.5/325 TABLET PO PRN ×2 (10:39→23:31)
[2020-03-06] MEDS: clonazePAM 1 MG TABLET PO PRN ×2 (10:50→16:58)
[2020-03-06] MEDS: Potassium Chloride Elixir 20 MEQ/15 ML UDC PO SCH (20:13)
[2020-03-07 03:39] LABS: Basophils % 0.3 %; Eosinophils # 0.1 K/mcL (0.0-0.6); Eosinophils % 1.9 %; Hematocrit 39.9 % (35.3-44.9); Hemoglobin 12.5 g/dL (11.5-15.4); Immature Granulocytes % 0.5 % (0-4); Lymphocytes # 2.1 K/mcL (0.6-4.6); Lymphocytes % 33.4 %; Mean Corpuscular HGB Conc 31.3 g/dL (31.6-35.5); Mean Corpuscular Hemoglobin 30.6 pg (28.0-33.3); Mean Corpuscular Volume 97.8 fL (83.0-100.0); Mean Platelet Volume 9.4 fL (9.4-12.4); Monocytes # 0.4 K/mcL (0.0-1.3); Monocytes % 5.6 %; Neutrophils # 3.7 K/mcL (1.6-8.9); Platelet Count 221 K/mcL (140-400); Red Blood Count 4.08 M/mcL (3.82-4.97); Red Cell Distribution Width 13.9 % (11.5-14.5); Segmented Neutrophils % 58.3 %; White Blood Count 6.4 K/mcL (4.3-11.1)
[2020-03-07 03:57] LABS: BUN/Creatinine Ratio 23 (6-26); Blood Urea Nitrogen 11 mg/dL (6-20); Calcium 8.4 mg/dL (8.6-10.3); Carbon Dioxide 29 mEq/L (23-29); Chloride 109 mEq/L (98-107); Glucose 117 mg/dL (70-105); Magnesium 1.6 mg/dL (1.6-2.6); Osmolality,Calculated 290 (280-300); Phosphorous 2.8 mg/dL (2.7-4.5); Potassium 4.1 mEq/L (3.5-5.1); Sodium 140 mEq/L (136-145); eGFR For African Americans > 60 (> 60); eGFR For Non-African Americans > 60 (> 60)
[2020-03-07] MEDS: Potassium Chloride Elixir 20 MEQ/15 ML UDC PO SCH (08:45)
[2020-03-07] MEDS: carvediloL 6.25 MG TABLET PO SCH (08:46)
[2020-03-07] MEDS: cloNIDine HCL 0.1 MG TABLET PO SCH (08:46)
[2020-03-07] MEDS: Cyanocobalamin (B-12) 1,000 MCG TABLET PO SCH (08:46)
[2020-03-07] MEDS: clonazePAM 1 MG TABLET PO PRN (08:47)
[2020-03-07] MEDS: hydroCHLOROthiazide 25 MG TABLET PO SCH (08:47)
[2020-03-07] MEDS: Spironolactone 25 MG TABLET PO SCH (08:47)
[2020-03-07] MEDS: amLODIPine 5 MG TABLET PO SCH (08:49)
[2020-03-07] MEDS: *HR* OxyCODONE/APAP 7.5/325 TABLET PO PRN (12:19)
[2020-03-07 13:22] VITALS: BP 135/84
== END 2020-03-07 14:20 | disposition home health service (06) ==
LOC: 3BNU 15:28 → EMEROOARM 15:28 → SUATTDRO 19:31 → 3BNU 20:12
PROVIDERS: ADMIT Pharmacist; ATTEND Internal Medicine

== ENCOUNTER 2020-05-23 17:19 | Inpatient (IN) ==
[2020-05-23] MEDS ORDERED: Ondansetron 4 MG/2 ML VIAL IVP ONE (17:28)
[2020-05-23] MEDS ORDERED: Acetaminophen 325 MG TABLET PO ONE (18:28)
[2020-05-23 18:42] LABS: Basophils # 0.1 K/mcL (0.0-0.2); Basophils % 0.6 %; Eosinophils % 0.2 %; Hematocrit 46.5 % (35.3-44.9); Hemoglobin 15.3 g/dL (11.5-15.4); Immature Granulocytes % 0.3 % (0-4); Lymphocytes % 26.1 %; Mean Corpuscular HGB Conc 32.9 g/dL (31.6-35.5); Mean Corpuscular Hemoglobin 30.9 pg (28.0-33.3); Mean Corpuscular Volume 93.9 fL (83.0-100.0); Mean Platelet Volume 9.8 fL (9.4-12.4); Monocytes # 0.6 K/mcL (0.0-1.3); Monocytes % 5.2 %; Neutrophils # 7.7 K/mcL (1.6-8.9); Platelet Count 305 K/mcL (140-400); Red Blood Count 4.95 M/mcL (3.82-4.97); Red Cell Distribution Width 13.8 % (11.5-14.5); Segmented Neutrophils % 67.6 %; White Blood Count 11.3 K/mcL (4.3-11.1)
[2020-05-23 18:43] LABS: Albumin 4.2 g/dL (3.5-5.7); Albumin/Globulin Ratio 1.8 (1.1-2.2); Bilirubin,Indirect 0.3 mg/dL (0.0-1.0); Bilirubin,Total 0.3 mg/dL (0.3-1.0); Globulin 2.4 g/dL (2.4-3.5); Total Protein 6.6 g/dL (6.4-8.9)
[2020-05-23 18:47] LABS: BUN/Creatinine Ratio 24 (6-26); Blood Urea Nitrogen 16 mg/dL (6-20); Calcium 9.4 mg/dL (8.6-10.3); Carbon Dioxide 25 mEq/L (23-29); Chloride 109 mEq/L (98-107); Glucose 116 mg/dL (70-105); Lipase < 3 Units/L (11-82); Osmolality,Calculated 296 (280-300); Potassium 3.3 mEq/L (3.5-5.1); Sodium 142 mEq/L (136-145); Troponin I < 0.03 ng/mL (< 0.04); eGFR For African Americans > 60 (> 60); eGFR For Non-African Americans > 60 (> 60)
[2020-05-23] MEDS ORDERED: Isovue-370 500 ML BOTTLE IVP ONE (18:53)
[2020-05-23] MEDS ORDERED: Morphine Sulfate 2 MG/ML SYRINGE IVP STA (19:06)
[2020-05-23] MEDS ORDERED: 0.9 % Sodium Chloride 1,000 ML IVC ONE (19:18)
[2020-05-23 21:00] LABS: Bilirubin,Urine Negative (Negative); Blood,Urine Trace-intact (Negative); Clarity,Urine Clear (Clear); Color,Urine Yellow (Yellow); Glucose,Urine (UA) Normal (Normal); Ketones,Urine Trace mg/dL (Negative); Leukocyte Esterase,Urine Negative (Negative); Nitrite,Urine Negative (Negative); PH,Urine 6.5 pH Units (5.0-8.0); Protein,Urine Negative (Neg-Trace); Urobilinogen,Urine Normal (Normal)
[2020-05-23] MEDS ORDERED: carvediloL 6.25 MG TABLET PO ONE (21:00)
[2020-05-23] MEDS ORDERED: cloNIDine HCL 0.1 MG TABLET PO ONE (21:00)
[2020-05-23] MEDS ORDERED: hydrALAZINE 25 MG TABLET PO ONE (21:00)
[2020-05-23 21:33] LABS: RBC,Urine 0-3 per hpf (0-3); Squamous Epithelial Cell,Urine Few per hpf (None-Few); WBC,Urine 0-3 per hpf (0-3)
[2020-05-23 21:48] LABS: Adenovirus Not Detected (Not Detect); Bordetella Pertussis Not Detected (Not Detect); Chlamydophila pneumoniae Not Detected (Not Detect); Coronavirus 229E Not Detected (Not Detect); Coronavirus HKU1 Not Detected (Not Detect); Coronavirus NL63 Not Detected (Not Detect); Coronavirus OC43 Not Detected (Not Detect); Human Metapneumovirus Not Detected (Not Detect); Human Rhinovirus/Enterovirus Not Detected (Not Detect); Influenza A Subtype 2009 H1 Not Detected (Not Detect); Influenza B Not Detected (Not Detect); Mycoplasma pneumoniae Not Detected (Not Detect); Parainfluenza Virus 1 Not Detected (Not Detect); Parainfluenza Virus 2 Not Detected (Not Detect); Parainfluenza Virus 3 Not Detected (Not Detect); Parainfluenza Virus 4 Not Detected (Not Detect); Respiratory Syncytial Virus Not Detected (Not Detect); SARS-CoV-2 Not Detected (Not Detect)
[2020-05-23] MEDS ORDERED: Naloxone 0.4 MG/ML INJ IVP PRN (22:59)
[2020-05-24] MEDS ORDERED: Furosemide 40 MG TABLET PO PRN (04:37)
[2020-05-24] MEDS ORDERED: clonazePAM 1 MG TABLET PO PRN (04:37)
[2020-05-24] MEDS ORDERED: FIORINAL PO PRN (04:37)
[2020-05-24] MEDS ORDERED: Albuterol Neb 1.25 MG/3 ML VIAL IH PRN (04:37)
[2020-05-24] MEDS: Ondansetron 4 MG/2 ML VIAL IVP PRN ×2 (04:41→15:02)
[2020-05-24 06:38] LABS: Hematocrit 44.9 % (35.3-44.9); Hemoglobin 14.2 g/dL (11.5-15.4); Mean Corpuscular HGB Conc 31.6 g/dL (31.6-35.5); Mean Corpuscular Hemoglobin 30.1 pg (28.0-33.3); Mean Corpuscular Volume 95.1 fL (83.0-100.0); Mean Platelet Volume 9.8 fL (9.4-12.4); Platelet Count 251 K/mcL (140-400); Red Blood Count 4.72 M/mcL (3.82-4.97); Red Cell Distribution Width 13.9 % (11.5-14.5); White Blood Count 8.2 K/mcL (4.3-11.1)
[2020-05-24 06:46] LABS: BUN/Creatinine Ratio 19 (6-26); Blood Urea Nitrogen 9 mg/dL (6-20); Calcium 8.4 mg/dL (8.6-10.3); Carbon Dioxide 24 mEq/L (23-29); Chloride 109 mEq/L (98-107); Glucose 103 mg/dL (70-105); Osmolality,Calculated 289 (280-300); Potassium 3.2 mEq/L (3.5-5.1); Sodium 140 mEq/L (136-145); eGFR For African Americans > 60 (> 60); eGFR For Non-African Americans > 60 (> 60)
[2020-05-24] MEDS: *HR* Heparin 5,000 UNIT/ML VIAL SQ SCH ×3 (07:20→20:48)
[2020-05-24] MEDS ORDERED: carvediloL 6.25 MG TABLET PO SCH (08:00)
[2020-05-24] MEDS: Spironolactone 25 MG TABLET PO SCH (08:02)
[2020-05-24] MEDS: hydroCHLOROthiazide 25 MG TABLET PO SCH (08:02)
[2020-05-24] MEDS: cloNIDine HCL 0.1 MG TABLET PO SCH ×3 (08:02→20:47)
[2020-05-24] MEDS: Aspirin Enteric Coated 81 MG Tablet PO SCH (08:02)
[2020-05-24] MEDS: amLODIPine 5 MG TABLET PO SCH (08:48)
[2020-05-24] MEDS ORDERED: VITAMIN B12 PO SCH (09:00)
[2020-05-24] MEDS ORDERED: amLODIPine 5 MG TABLET PO SCH (09:00)
[2020-05-24] MEDS ORDERED: [UNRECOGNIZED DRUG - OTHER] PO SCH (09:00)
[2020-05-24] MEDS: *HR* OxyCODONE/APAP 7.5/325 TABLET PO PRN (10:33)
[2020-05-24] MEDS: carvediloL 6.25 MG TABLET PO SCH ×2 (10:34→18:58)
[2020-05-24] MEDS: Potassium Chloride Elixir 20 MEQ/15 ML UDC PO SCH ×3 (10:34→20:47)
[2020-05-24] MEDS: Cyanocobalamin (B-12) 1,000 MCG TABLET PO SCH (13:35)
[2020-05-24] MEDS: Acetaminophen/Butalbital/CaffeineTABLET PO PRN (13:35)
[2020-05-24] MEDS ORDERED: NIFEdipine 10 MG CAPSULE PO ONE (21:51)
[2020-05-25 04:55] LABS: Basophils # 0.1 K/mcL (0.0-0.2); Basophils % 0.7 %; Eosinophils # 0.1 K/mcL (0.0-0.6); Eosinophils % 1.2 %; Hematocrit 47.4 % (35.3-44.9); Hemoglobin 14.8 g/dL (11.5-15.4); Immature Granulocytes % 0.3 % (0-4); Lymphocytes # 2.4 K/mcL (0.6-4.6); Lymphocytes % 36.4 %; Mean Corpuscular HGB Conc 31.2 g/dL (31.6-35.5); Mean Corpuscular Volume 96.1 fL (83.0-100.0); Mean Platelet Volume 9.6 fL (9.4-12.4); Monocytes # 0.5 K/mcL (0.0-1.3); Monocytes % 6.7 %; Neutrophils # 3.7 K/mcL (1.6-8.9); Platelet Count 277 K/mcL (140-400); Red Blood Count 4.93 M/mcL (3.82-4.97); Red Cell Distribution Width 13.8 % (11.5-14.5); Segmented Neutrophils % 54.7 %; White Blood Count 6.7 K/mcL (4.3-11.1)
[2020-05-25 05:00] LABS: Amphetamine Screen,Urine Negative ng/mL (Cutoff=1000); Barbiturate Screen,Urine Positive ng/mL (Cutoff=200); Benzodiazepines Screen,Urine Negative ng/mL (Cutoff=200); Cannabinoid Screen,Urine Negative ng/mL (Cutoff = 50); Cocaine Screen,Urine Negative ng/mL (Cutoff= 300); Opiate Screen,Urine Positive ng/mL (Cutoff=300); Phencyclidine Screen,Urine Negative ng/mL (Cutoff=25)
[2020-05-25 05:14] LABS: BUN/Creatinine Ratio 20 (6-26); Blood Urea Nitrogen 12 mg/dL (6-20); Carbon Dioxide 25 mEq/L (23-29); Chloride 107 mEq/L (98-107); Glucose 106 mg/dL (70-105); Magnesium 1.9 mg/dL (1.6-2.6); Osmolality,Calculated 288 (280-300); Potassium 4.1 mEq/L (3.5-5.1); Sodium 139 mEq/L (136-145); eGFR For African Americans > 60 (> 60); eGFR For Non-African Americans > 60 (> 60)
[2020-05-25] MEDS: *HR* OxyCODONE/APAP 7.5/325 TABLET PO PRN (05:50)
[2020-05-25] MEDS: *HR* Heparin 5,000 UNIT/ML VIAL SQ SCH ×3 (05:51→19:58)
[2020-05-25] MEDS: Ondansetron 4 MG/2 ML VIAL IVP PRN (05:51)
[2020-05-25] MEDS ORDERED: hydrALAZINE 25 MG TABLET PO SCH (09:00)
[2020-05-25] MEDS: Potassium Chloride Elixir 20 MEQ/15 ML UDC PO SCH ×3 (09:57→19:58)
[2020-05-25] MEDS: Acetaminophen/Butalbital/CaffeineTABLET PO PRN (09:57)
[2020-05-25] MEDS: carvediloL 6.25 MG TABLET PO SCH ×2 (09:57→16:07)
[2020-05-25] MEDS: Spironolactone 25 MG TABLET PO SCH (09:58)
[2020-05-25] MEDS: Aspirin Enteric Coated 81 MG Tablet PO SCH (09:58)
[2020-05-25] MEDS: NIFEdipine XL (24 HR) 60 MG TAB.ER.24 PO SCH (09:58)
[2020-05-25] MEDS: Cyanocobalamin (B-12) 1,000 MCG TABLET PO SCH (09:58)
[2020-05-25] MEDS: hydroCHLOROthiazide 25 MG TABLET PO SCH (09:58)
[2020-05-25] MEDS: cloNIDine HCL 0.1 MG TABLET PO SCH ×3 (10:07→19:58)
[2020-05-25] MEDS: amLODIPine 5 MG TABLET PO SCH (10:08)
[2020-05-25] MEDS ORDERED: *HR* Labetalol 20 MG/4 ML SYRINGE IVP PRN (11:04)
[2020-05-25] MEDS: *HR* Promethazine 25 MG/ML VIAL IVP PRN ×2 (17:22→23:35)
[2020-05-25] MEDS: clonazePAM 1 MG TABLET PO SCH (19:58)
[2020-05-25] MEDS: *HR* Labetalol 20 MG/4 ML SYRINGE IVP PRN (22:00)
[2020-05-26] MEDS: *HR* Heparin 5,000 UNIT/ML VIAL SQ SCH ×2 (05:29→17:50)
[2020-05-26] MEDS: *HR* OxyCODONE/APAP 7.5/325 TABLET PO PRN (05:59)
[2020-05-26] MEDS: *HR* Promethazine 25 MG/ML VIAL IVP PRN ×3 (06:00→18:23)
[2020-05-26 06:08] LABS: BUN/Creatinine Ratio 29 (6-26); Blood Urea Nitrogen 21 mg/dL (6-20); Calcium 8.9 mg/dL (8.6-10.3); Carbon Dioxide 26 mEq/L (23-29); Chloride 110 mEq/L (98-107); Glucose 111 mg/dL (70-105); Magnesium 1.8 mg/dL (1.6-2.6); Osmolality,Calculated 294 (280-300); Potassium 4.2 mEq/L (3.5-5.1); Sodium 140 mEq/L (136-145); eGFR For African Americans > 60 (> 60); eGFR For Non-African Americans > 60 (> 60)
[2020-05-26] MEDS: Potassium Chloride Elixir 20 MEQ/15 ML UDC PO SCH ×3 (08:08→20:31)
[2020-05-26] MEDS: NIFEdipine XL (24 HR) 60 MG TAB.ER.24 PO SCH (08:08)
[2020-05-26] MEDS: Cyanocobalamin (B-12) 1,000 MCG TABLET PO SCH (08:08)
[2020-05-26] MEDS: carvediloL 6.25 MG TABLET PO SCH ×2 (08:10→15:53)
[2020-05-26] MEDS: Aspirin Enteric Coated 81 MG Tablet PO SCH (08:10)
[2020-05-26] MEDS: cloNIDine HCL 0.1 MG TABLET PO SCH ×3 (08:10→20:32)
[2020-05-26] MEDS: hydroCHLOROthiazide 25 MG TABLET PO SCH (08:10)
[2020-05-26] MEDS: Spironolactone 25 MG TABLET PO SCH (08:11)
[2020-05-26] MEDS: Acetaminophen/Butalbital/CaffeineTABLET PO PRN ×2 (08:15→18:22)
[2020-05-26] MEDS ORDERED: hydroCHLOROthiazide 25 MG TABLET PO ONE (09:46)
[2020-05-26] MEDS ORDERED: Pantoprazole 40 MG VIAL IVP ONE (11:59)
[2020-05-26] MEDS: clonazePAM 1 MG TABLET PO SCH (20:32)
[2020-05-27] MEDS: *HR* OxyCODONE/APAP 7.5/325 TABLET PO PRN ×3 (00:42→21:25)
[2020-05-27] MEDS: *HR* Promethazine 25 MG/ML VIAL IVP PRN ×3 (00:42→19:53)
[2020-05-27] MEDS: *HR* Heparin 5,000 UNIT/ML VIAL SQ SCH ×2 (05:23→18:25)
[2020-05-27 06:07] LABS: Hematocrit 43.8 % (35.3-44.9); Hemoglobin 13.7 g/dL (11.5-15.4); Mean Corpuscular HGB Conc 31.3 g/dL (31.6-35.5); Mean Corpuscular Hemoglobin 30.4 pg (28.0-33.3); Mean Corpuscular Volume 97.3 fL (83.0-100.0); Mean Platelet Volume 10.1 fL (9.4-12.4); Platelet Count 262 K/mcL (140-400); Red Cell Distribution Width 14.3 % (11.5-14.5); White Blood Count 6.7 K/mcL (4.3-11.1)
[2020-05-27 06:15] LABS: INR 0.9; Prothrombin Time 10.7 Seconds (9.4-12.1)
[2020-05-27 06:21] LABS: BUN/Creatinine Ratio 35 (6-26); Blood Urea Nitrogen 23 mg/dL (6-20); Calcium 8.8 mg/dL (8.6-10.3); Carbon Dioxide 27 mEq/L (23-29); Chloride 110 mEq/L (98-107); Glucose 95 mg/dL (70-105); Magnesium 1.9 mg/dL (1.6-2.6); Osmolality,Calculated 295 (280-300); Potassium 4.4 mEq/L (3.5-5.1); Sodium 141 mEq/L (136-145); eGFR For African Americans > 60 (> 60); eGFR For Non-African Americans > 60 (> 60)
[2020-05-27] MEDS: Potassium Chloride Elixir 20 MEQ/15 ML UDC PO SCH ×3 (07:39→19:51)
[2020-05-27] MEDS: Aspirin Enteric Coated 81 MG Tablet PO SCH (07:40)
[2020-05-27] MEDS: hydroCHLOROthiazide 25 MG TABLET PO SCH (07:40)
[2020-05-27] MEDS: carvediloL 6.25 MG TABLET PO SCH ×2 (07:41→18:25)
[2020-05-27] MEDS: cloNIDine HCL 0.1 MG TABLET PO SCH ×3 (07:41→19:52)
[2020-05-27] MEDS: Cyanocobalamin (B-12) 1,000 MCG TABLET PO SCH (07:41)
[2020-05-27] MEDS: Spironolactone 25 MG TABLET PO SCH (07:41)
[2020-05-27] MEDS: NIFEdipine XL (24 HR) 60 MG TAB.ER.24 PO SCH (07:41)
[2020-05-27] MEDS ORDERED: Heparin 1,000 UNITS/500 mL 500 ML ONE (14:00)
[2020-05-27] MEDS ORDERED: *HR* Heparin 10,000 UNIT/10 ML VIAL ONE (14:00)
[2020-05-27] MEDS ORDERED: 0.9 % Sodium Chloride 1,000 ML ONE ×2 (14:01→14:31)
[2020-05-27] MEDS ORDERED: *HR* FentaNYL (PF) 100 MCG/2 ML VIAL ONE (14:31)
[2020-05-27] MEDS ORDERED: *HR* Midazolam HCl 2 MG/2 ML VIAL ONE (14:31)
[2020-05-27] MEDS: Acetaminophen/Butalbital/CaffeineTABLET PO PRN (18:25)
[2020-05-27] MEDS: clonazePAM 1 MG TABLET PO SCH (19:53)
[2020-05-28] MEDS: *HR* Labetalol 20 MG/4 ML SYRINGE IVP PRN (00:17)
[2020-05-28] MEDS: *HR* Heparin 5,000 UNIT/ML VIAL SQ SCH ×2 (05:40→16:25)
[2020-05-28] MEDS: *HR* Promethazine 25 MG/ML VIAL IVP PRN ×2 (06:34→13:09)
[2020-05-28] MEDS: Cyanocobalamin (B-12) 1,000 MCG TABLET PO SCH (07:36)
[2020-05-28] MEDS: Potassium Chloride Elixir 20 MEQ/15 ML UDC PO SCH ×3 (07:36→20:33)
[2020-05-28] MEDS: Spironolactone 25 MG TABLET PO SCH (07:36)
[2020-05-28] MEDS: Aspirin Enteric Coated 81 MG Tablet PO SCH (07:36)
[2020-05-28] MEDS: carvediloL 6.25 MG TABLET PO SCH ×2 (08:20→16:24)
[2020-05-28] MEDS: cloNIDine HCL 0.1 MG TABLET PO SCH (09:59)
[2020-05-28] MEDS: NIFEdipine XL (24 HR) 60 MG TAB.ER.24 PO SCH (10:03)
[2020-05-28] MEDS: hydroCHLOROthiazide 25 MG TABLET PO SCH (10:03)
[2020-05-28] MEDS: CloNIDine Patch 0.3 MG PATCH (WEEKLY) TD SCH (11:49)
[2020-05-28] MEDS: Acetaminophen/Butalbital/CaffeineTABLET PO PRN (11:53)
[2020-05-28] MEDS: *HR* OxyCODONE/APAP 7.5/325 TABLET PO PRN (18:43)
[2020-05-28] MEDS: clonazePAM 1 MG TABLET PO SCH (20:31)
[2020-05-29] MEDS: *HR* OxyCODONE/APAP 7.5/325 TABLET PO PRN ×2 (00:45→17:25)
[2020-05-29] MEDS: *HR* Promethazine 25 MG/ML VIAL IVP PRN ×2 (00:47→10:14)
[2020-05-29 05:01] LABS: Basophils # 0.1 K/mcL (0.0-0.2); Basophils % 1.1 %; Eosinophils # 0.3 K/mcL (0.0-0.6); Eosinophils % 5.7 %; Hematocrit 42.9 % (35.3-44.9); Hemoglobin 13.5 g/dL (11.5-15.4); Immature Granulocytes % 0.2 % (0-4); Lymphocytes # 2.7 K/mcL (0.6-4.6); Lymphocytes % 48.3 %; Mean Corpuscular HGB Conc 31.5 g/dL (31.6-35.5); Mean Corpuscular Hemoglobin 30.5 pg (28.0-33.3); Mean Corpuscular Volume 96.8 fL (83.0-100.0); Mean Platelet Volume 9.9 fL (9.4-12.4); Monocytes # 0.4 K/mcL (0.0-1.3); Monocytes % 7.4 %; Neutrophils # 2.1 K/mcL (1.6-8.9); Platelet Count 221 K/mcL (140-400); Red Blood Count 4.43 M/mcL (3.82-4.97); Red Cell Distribution Width 14.2 % (11.5-14.5); Segmented Neutrophils % 37.3 %; White Blood Count 5.6 K/mcL (4.3-11.1)
[2020-05-29 05:17] LABS: Complement C3 116 mg/dL (87-200)
[2020-05-29 05:18] LABS: BUN/Creatinine Ratio 30 (6-26); Blood Urea Nitrogen 18 mg/dL (6-20); Calcium 8.6 mg/dL (8.6-10.3); Carbon Dioxide 25 mEq/L (23-29); Chloride 106 mEq/L (98-107); Glucose 98 mg/dL (70-105); Osmolality,Calculated 288 (280-300); Potassium 4.2 mEq/L (3.5-5.1); Sodium 138 mEq/L (136-145); eGFR For African Americans > 60 (> 60); eGFR For Non-African Americans > 60 (> 60)
[2020-05-29] MEDS: *HR* Heparin 5,000 UNIT/ML VIAL SQ SCH ×2 (05:30→17:29)
[2020-05-29] MEDS: carvediloL 6.25 MG TABLET PO SCH ×2 (07:38→17:26)
[2020-05-29] MEDS: Potassium Chloride Elixir 20 MEQ/15 ML UDC PO SCH ×3 (07:38→20:45)
[2020-05-29] MEDS: Cyanocobalamin (B-12) 1,000 MCG TABLET PO SCH (07:39)
[2020-05-29] MEDS: Aspirin Enteric Coated 81 MG Tablet PO SCH (07:39)
[2020-05-29] MEDS: hydroCHLOROthiazide 25 MG TABLET PO SCH (07:39)
[2020-05-29] MEDS: NIFEdipine XL (24 HR) 60 MG TAB.ER.24 PO SCH (07:40)
[2020-05-29] MEDS: Spironolactone 25 MG TABLET PO SCH ×2 (07:40→20:46)
[2020-05-29 09:10] LABS: Thyroid Stimulating Hormone 4.332 mcIU/mL (0.340-5.600)
[2020-05-29] MEDS: niCARdipine 20 MG/200 ML MLS IVC SCH ×3 (09:52→20:00)
[2020-05-29] MEDS ORDERED: Isovue-370 500 ML BOTTLE IVP ONE (11:39)
[2020-05-29] MEDS: clonazePAM 1 MG TABLET PO SCH (20:46)
[2020-05-29] MEDS: Acetaminophen/Butalbital/CaffeineTABLET PO PRN (20:52)
[2020-05-30] MEDS: niCARdipine 20 MG/200 ML MLS IVC SCH ×6 (03:52→18:53)
[2020-05-30] MEDS: *HR* Heparin 5,000 UNIT/ML VIAL SQ SCH ×2 (05:30→18:09)
[2020-05-30 07:23] LABS: BUN/Creatinine Ratio 34 (6-26); Blood Urea Nitrogen 20 mg/dL (6-20); Calcium 8.8 mg/dL (8.6-10.3); Carbon Dioxide 24 mEq/L (23-29); Chloride 106 mEq/L (98-107); Glucose 107 mg/dL (70-105); Osmolality,Calculated 287 (280-300); Potassium 4.3 mEq/L (3.5-5.1); Sodium 137 mEq/L (136-145); eGFR For African Americans > 60 (> 60); eGFR For Non-African Americans > 60 (> 60)
[2020-05-30] MEDS: Aspirin Enteric Coated 81 MG Tablet PO SCH (07:42)
[2020-05-30] MEDS: Cyanocobalamin (B-12) 1,000 MCG TABLET PO SCH (07:42)
[2020-05-30] MEDS: Potassium Chloride Elixir 20 MEQ/15 ML UDC PO SCH ×3 (07:43→19:43)
[2020-05-30] MEDS: Spironolactone 25 MG TABLET PO SCH ×2 (07:48→19:43)
[2020-05-30] MEDS: hydroCHLOROthiazide 25 MG TABLET PO SCH (07:51)
[2020-05-30] MEDS: carvediloL 6.25 MG TABLET PO SCH ×2 (07:59→15:56)
[2020-05-30] MEDS: Acetaminophen/Butalbital/CaffeineTABLET PO PRN ×2 (11:05→18:12)
[2020-05-30] MEDS: *HR* OxyCODONE/APAP 7.5/325 TABLET PO PRN ×2 (12:06→23:36)
[2020-05-30] MEDS: clonazePAM 1 MG TABLET PO SCH (19:43)
[2020-05-31] MEDS: niCARdipine 20 MG/200 ML MLS IVC SCH ×5 (02:04→23:53)
[2020-05-31] MEDS: *HR* Heparin 5,000 UNIT/ML VIAL SQ SCH ×2 (06:15→17:28)
[2020-05-31 06:53] LABS: BUN/Creatinine Ratio 34 (6-26); Blood Urea Nitrogen 18 mg/dL (6-20); Calcium 8.6 mg/dL (8.6-10.3); Carbon Dioxide 27 mEq/L (23-29); Chloride 106 mEq/L (98-107); Glucose 104 mg/dL (70-105); Osmolality,Calculated 288 (280-300); Sodium 138 mEq/L (136-145); eGFR For African Americans > 60 (> 60); eGFR For Non-African Americans > 60 (> 60)
[2020-05-31] MEDS: hydroCHLOROthiazide 25 MG TABLET PO SCH (07:43)
[2020-05-31] MEDS: carvediloL 6.25 MG TABLET PO SCH ×2 (07:43→17:28)
[2020-05-31] MEDS: Aspirin Enteric Coated 81 MG Tablet PO SCH (07:43)
[2020-05-31] MEDS: Cyanocobalamin (B-12) 1,000 MCG TABLET PO SCH (07:43)
[2020-05-31] MEDS: Spironolactone 25 MG TABLET PO SCH ×2 (07:44→20:24)
[2020-05-31] MEDS: Potassium Chloride Elixir 20 MEQ/15 ML UDC PO SCH ×3 (07:45→20:23)
[2020-05-31] MEDS: Acetaminophen/Butalbital/CaffeineTABLET PO PRN ×2 (09:42→20:23)
[2020-05-31] MEDS: *HR* OxyCODONE/APAP 7.5/325 TABLET PO PRN (12:10)
[2020-05-31 16:45] LABS: ANA IgG by ELISA NONE DETECTED (None Detected); Serine Protease-3 Antibody 3 AU/mL (0-19)
[2020-05-31] MEDS ORDERED: Ibuprofen 400 MG TABLET PO PRN (19:58)
[2020-05-31] MEDS: *HR* Promethazine 25 MG/ML VIAL IVP PRN (20:22)
[2020-05-31] MEDS: clonazePAM 1 MG TABLET PO SCH (20:23)
[2020-06-01] MEDS: *HR* Promethazine 25 MG/ML VIAL IVP PRN ×4 (03:27→23:31)
[2020-06-01 03:44] LABS: BUN/Creatinine Ratio 34 (6-26); Blood Urea Nitrogen 21 mg/dL (6-20); Calcium 8.6 mg/dL (8.6-10.3); Carbon Dioxide 27 mEq/L (23-29); Chloride 108 mEq/L (98-107); Glucose 106 mg/dL (70-105); Osmolality,Calculated 289 (280-300); Potassium 4.3 mEq/L (3.5-5.1); Sodium 138 mEq/L (136-145); eGFR For African Americans > 60 (> 60); eGFR For Non-African Americans > 60 (> 60)
[2020-06-01] MEDS: *HR* Heparin 5,000 UNIT/ML VIAL SQ SCH ×2 (05:49→17:00)
[2020-06-01] MEDS: *HR* OxyCODONE/APAP 7.5/325 TABLET PO PRN (07:18)
[2020-06-01] MEDS: Spironolactone 25 MG TABLET PO SCH ×2 (07:19→20:25)
[2020-06-01] MEDS: Aspirin Enteric Coated 81 MG Tablet PO SCH (07:19)
[2020-06-01] MEDS: hydroCHLOROthiazide 25 MG TABLET PO SCH (07:19)
[2020-06-01] MEDS: Cyanocobalamin (B-12) 1,000 MCG TABLET PO SCH (07:19)
[2020-06-01] MEDS: carvediloL 6.25 MG TABLET PO SCH ×2 (07:20→17:00)
[2020-06-01] MEDS: Potassium Chloride Elixir 20 MEQ/15 ML UDC PO SCH ×3 (07:21→20:24)
[2020-06-01] MEDS: *HR* Labetalol 20 MG/4 ML SYRINGE IVP PRN (10:59)
[2020-06-01 11:51] LABS: Antiphospholipid IgG High Spec 0 GPL (0-14); Antiphospholipid IgM High Spec 0 MPL (0-14)
[2020-06-01 13:03] LABS: Metanephrine, Plasma 0.29 nmol/L (0.00-0.49)
[2020-06-01] MEDS: Acetaminophen/Butalbital/CaffeineTABLET PO PRN (13:50)
[2020-06-01] MEDS: Ondansetron 4 MG/2 ML VIAL IVP PRN (14:47)
[2020-06-01] MEDS: niCARdipine 20 MG/200 ML MLS IVC SCH (18:39)
[2020-06-01] MEDS: clonazePAM 1 MG TABLET PO SCH (20:25)
[2020-06-02] MEDS: *HR* Heparin 5,000 UNIT/ML VIAL SQ SCH ×2 (04:59→17:48)
[2020-06-02 05:37] LABS: BUN/Creatinine Ratio 32 (6-26); Blood Urea Nitrogen 20 mg/dL (6-20); Calcium 8.6 mg/dL (8.6-10.3); Carbon Dioxide 26 mEq/L (23-29); Chloride 107 mEq/L (98-107); Glucose 96 mg/dL (70-105); Osmolality,Calculated 288 (280-300); Potassium 4.1 mEq/L (3.5-5.1); Sodium 138 mEq/L (136-145); eGFR For African Americans > 60 (> 60); eGFR For Non-African Americans > 60 (> 60)
[2020-06-02] MEDS: *HR* Promethazine 25 MG/ML VIAL IVP PRN (06:08)
[2020-06-02] MEDS: *HR* OxyCODONE/APAP 7.5/325 TABLET PO PRN ×2 (06:10→22:33)
[2020-06-02] MEDS: Spironolactone 25 MG TABLET PO SCH ×2 (07:14→19:29)
[2020-06-02] MEDS: Cyanocobalamin (B-12) 1,000 MCG TABLET PO SCH (07:14)
[2020-06-02] MEDS: hydroCHLOROthiazide 25 MG TABLET PO SCH (07:14)
[2020-06-02] MEDS: Potassium Chloride Elixir 20 MEQ/15 ML UDC PO SCH ×3 (07:15→19:28)
[2020-06-02] MEDS: carvediloL 6.25 MG TABLET PO SCH ×2 (07:15→17:47)
[2020-06-02] MEDS: Aspirin Enteric Coated 81 MG Tablet PO SCH (07:15)
[2020-06-02] MEDS: niCARdipine 20 MG/200 ML MLS IVC SCH ×2 (12:18→19:30)
[2020-06-02] MEDS: Acetaminophen/Butalbital/CaffeineTABLET PO PRN (12:40)
[2020-06-02] MEDS: clonazePAM 1 MG TABLET PO PRN (15:26)
[2020-06-02 23:27] LABS: Bilirubin,Urine Negative (Negative); Blood,Urine Trace (Negative); Clarity,Urine Clear (Clear); Color,Urine Colorless (Yellow); Glucose,Urine (UA) Normal (Normal); Ketones,Urine Negative (Negative); Leukocyte Esterase,Urine Moderate (Negative); Mucus,Urine Few per lpf (None-Few); Nitrite,Urine Negative (Negative); Protein,Urine Negative (Neg-Trace); Specific Gravity,Urine 1.016 (1.010-1.025); Squamous Epithelial Cell,Urine Few per hpf (None-Few); Urobilinogen,Urine Normal (Normal)
[2020-06-03] MEDS: niCARdipine 20 MG/200 ML MLS IVC SCH ×4 (03:40→22:43)
[2020-06-03 04:19] LABS: BUN/Creatinine Ratio 35 (6-26); Blood Urea Nitrogen 19 mg/dL (6-20); Calcium 8.5 mg/dL (8.6-10.3); Carbon Dioxide 24 mEq/L (23-29); Chloride 108 mEq/L (98-107); Glucose 94 mg/dL (70-105); Osmolality,Calculated 286 (280-300); Potassium 3.9 mEq/L (3.5-5.1); Sodium 137 mEq/L (136-145); eGFR For African Americans > 60 (> 60); eGFR For Non-African Americans > 60 (> 60)
[2020-06-03] MEDS: *HR* Heparin 5,000 UNIT/ML VIAL SQ SCH ×2 (05:48→16:49)
[2020-06-03] MEDS: Potassium Chloride Elixir 20 MEQ/15 ML UDC PO SCH ×3 (08:11→19:50)
[2020-06-03] MEDS: hydroCHLOROthiazide 25 MG TABLET PO SCH (08:11)
[2020-06-03] MEDS: Aspirin Enteric Coated 81 MG Tablet PO SCH (08:12)
[2020-06-03] MEDS: carvediloL 6.25 MG TABLET PO SCH ×2 (08:12→16:49)
[2020-06-03] MEDS: Spironolactone 25 MG TABLET PO SCH ×2 (08:12→19:50)
[2020-06-03] MEDS: Cyanocobalamin (B-12) 1,000 MCG TABLET PO SCH (08:12)
[2020-06-03] MEDS: *HR* OxyCODONE/APAP 7.5/325 TABLET PO PRN (12:42)
[2020-06-03] MEDS: Acetaminophen/Butalbital/CaffeineTABLET PO PRN (15:34)
[2020-06-03] MEDS: amLODIPine 5 MG TABLET PO SCH (16:49)
[2020-06-03] MEDS: clonazePAM 1 MG TABLET PO PRN (19:50)
[2020-06-04] MEDS: niCARdipine 20 MG/200 ML MLS IVC SCH ×5 (02:25→23:18)
[2020-06-04 02:58] LABS: Basophils % 0.7 %; Eosinophils # 0.2 K/mcL (0.0-0.6); Eosinophils % 2.8 %; Hematocrit 41.2 % (35.3-44.9); Hemoglobin 13.3 g/dL (11.5-15.4); Immature Granulocytes % 0.4 % (0-4); Lymphocytes # 2.3 K/mcL (0.6-4.6); Lymphocytes % 42.7 %; Mean Corpuscular HGB Conc 32.3 g/dL (31.6-35.5); Mean Corpuscular Hemoglobin 31.4 pg (28.0-33.3); Mean Corpuscular Volume 97.4 fL (83.0-100.0); Mean Platelet Volume 9.6 fL (9.4-12.4); Monocytes # 0.4 K/mcL (0.0-1.3); Monocytes % 7.7 %; Neutrophils # 2.5 K/mcL (1.6-8.9); Platelet Count 223 K/mcL (140-400); Red Blood Count 4.23 M/mcL (3.82-4.97); Red Cell Distribution Width 13.5 % (11.5-14.5); Segmented Neutrophils % 45.7 %; White Blood Count 5.4 K/mcL (4.3-11.1)
[2020-06-04] MEDS: *HR* Heparin 5,000 UNIT/ML VIAL SQ SCH ×2 (05:38→16:22)
[2020-06-04] MEDS: hydroCHLOROthiazide 25 MG TABLET PO SCH (07:48)
[2020-06-04] MEDS: Aspirin Enteric Coated 81 MG Tablet PO SCH (07:48)
[2020-06-04] MEDS: Spironolactone 25 MG TABLET PO SCH ×2 (07:48→19:55)
[2020-06-04] MEDS: amLODIPine 5 MG TABLET PO SCH (07:49)
[2020-06-04] MEDS: Cyanocobalamin (B-12) 1,000 MCG TABLET PO SCH (07:49)
[2020-06-04] MEDS: carvediloL 6.25 MG TABLET PO SCH ×2 (07:49→16:22)
[2020-06-04] MEDS: Potassium Chloride Elixir 20 MEQ/15 ML UDC PO SCH ×3 (07:50→20:03)
[2020-06-04] MEDS: *HR* OxyCODONE/APAP 7.5/325 TABLET PO PRN ×2 (08:31→20:07)
[2020-06-04] MEDS: CloNIDine Patch 0.3 MG PATCH (WEEKLY) TD SCH (11:16)
[2020-06-04] MEDS: Acetaminophen/Butalbital/CaffeineTABLET PO PRN (12:44)
[2020-06-04] MEDS: clonazePAM 1 MG TABLET PO SCH ×2 (15:00→19:55)
[2020-06-04] MEDS: hydrALAZINE 25 MG TABLET PO SCH ×2 (15:00→19:54)
[2020-06-04] MEDS ORDERED: Perflutren Lipid Microsphere 1.3 ML in 0.9 % Sodium Chloride 8.7 ML IVP PRN (15:34)
[2020-06-05 03:22] LABS: Basophils # 0.1 K/mcL (0.0-0.2); Basophils % 0.9 %; Eosinophils # 0.1 K/mcL (0.0-0.6); Eosinophils % 1.9 %; Hematocrit 38.6 % (35.3-44.9); Hemoglobin 12.3 g/dL (11.5-15.4); Immature Granulocytes % 0.2 % (0-4); Lymphocytes # 2.3 K/mcL (0.6-4.6); Lymphocytes % 40.1 %; Mean Corpuscular HGB Conc 31.9 g/dL (31.6-35.5); Mean Corpuscular Hemoglobin 31.1 pg (28.0-33.3); Mean Corpuscular Volume 97.7 fL (83.0-100.0); Mean Platelet Volume 9.4 fL (9.4-12.4); Monocytes # 0.5 K/mcL (0.0-1.3); Monocytes % 8.9 %; Neutrophils # 2.8 K/mcL (1.6-8.9); Platelet Count 214 K/mcL (140-400); Red Blood Count 3.95 M/mcL (3.82-4.97); Red Cell Distribution Width 13.4 % (11.5-14.5); White Blood Count 5.8 K/mcL (4.3-11.1)
[2020-06-05] MEDS: *HR* Heparin 5,000 UNIT/ML VIAL SQ SCH ×2 (03:57→16:34)
[2020-06-05] MEDS ORDERED: Regadenoson 0.4 MG/5 ML SYRINGE IVP ONE (05:57)
[2020-06-05] MEDS: niCARdipine 20 MG/200 ML MLS IVC SCH ×2 (08:11→16:46)
[2020-06-05] MEDS: *HR* OxyCODONE/APAP 7.5/325 TABLET PO PRN (09:12)
[2020-06-05] MEDS: carvediloL 6.25 MG TABLET PO SCH ×2 (09:12→16:33)
[2020-06-05] MEDS: clonazePAM 1 MG TABLET PO SCH ×3 (09:12→19:38)
[2020-06-05] MEDS: Aspirin Enteric Coated 81 MG Tablet PO SCH (09:12)
[2020-06-05] MEDS: hydroCHLOROthiazide 25 MG TABLET PO SCH (09:14)
[2020-06-05] MEDS: Spironolactone 25 MG TABLET PO SCH ×2 (09:15→19:38)
[2020-06-05] MEDS: amLODIPine 5 MG TABLET PO SCH (09:16)
[2020-06-05] MEDS: Cyanocobalamin (B-12) 1,000 MCG TABLET PO SCH (09:16)
[2020-06-05] MEDS: Potassium Chloride Elixir 20 MEQ/15 ML UDC PO SCH ×4 (11:53→19:38)
[2020-06-05] MEDS: hydrALAZINE 25 MG TABLET PO SCH ×3 (11:53→19:37)
[2020-06-05] MEDS: Isosorbide MONOnitrate (24 HR) 30 MG TAB.ER.24H PO SCH (12:02)
[2020-06-05] MEDS: Acetaminophen/Butalbital/CaffeineTABLET PO PRN (12:03)
[2020-06-05] MEDS: CloNIDine Patch 0.3 MG PATCH (WEEKLY) TD SCH (12:05)
[2020-06-05] MEDS ORDERED: *HR* OxyCODONE/APAP 7.5/325 TABLET PO ONE (18:30)
[2020-06-06] MEDS: niCARdipine 20 MG/200 ML MLS IVC SCH ×10 (00:23→21:13)
[2020-06-06 04:06] LABS: Basophils # 0.1 K/mcL (0.0-0.2); Basophils % 0.7 %; Eosinophils # 0.1 K/mcL (0.0-0.6); Eosinophils % 1.2 %; Hematocrit 38.4 % (35.3-44.9); Hemoglobin 12.2 g/dL (11.5-15.4); Immature Granulocytes % 0.3 % (0-4); Lymphocytes # 2.6 K/mcL (0.6-4.6); Mean Corpuscular HGB Conc 31.8 g/dL (31.6-35.5); Mean Corpuscular Hemoglobin 31.1 pg (28.0-33.3); Mean Platelet Volume 9.2 fL (9.4-12.4); Monocytes # 0.5 K/mcL (0.0-1.3); Monocytes % 7.4 %; Platelet Count 210 K/mcL (140-400); Red Blood Count 3.92 M/mcL (3.82-4.97); Red Cell Distribution Width 13.7 % (11.5-14.5); Segmented Neutrophils % 55.4 %; White Blood Count 7.3 K/mcL (4.3-11.1)
[2020-06-06 04:18] LABS: BUN/Creatinine Ratio 39 (6-26); Blood Urea Nitrogen 20 mg/dL (6-20); Calcium 8.4 mg/dL (8.6-10.3); Carbon Dioxide 25 mEq/L (23-29); Chloride 108 mEq/L (98-107); Glucose 103 mg/dL (70-105); Osmolality,Calculated 287 (280-300); Potassium 3.8 mEq/L (3.5-5.1); Sodium 137 mEq/L (136-145); eGFR For African Americans > 60 (> 60); eGFR For Non-African Americans > 60 (> 60)
[2020-06-06] MEDS: *HR* Heparin 5,000 UNIT/ML VIAL SQ SCH ×2 (05:22→16:12)
[2020-06-06] MEDS: *HR* OxyCODONE/APAP 7.5/325 TABLET PO PRN ×2 (06:23→17:58)
[2020-06-06] MEDS: clonazePAM 1 MG TABLET PO SCH ×3 (08:06→20:08)
[2020-06-06] MEDS: hydrALAZINE 25 MG TABLET PO SCH ×3 (08:06→20:08)
[2020-06-06] MEDS: Spironolactone 25 MG TABLET PO SCH ×2 (08:07→20:08)
[2020-06-06] MEDS: hydroCHLOROthiazide 25 MG TABLET PO SCH (08:07)
[2020-06-06] MEDS: amLODIPine 5 MG TABLET PO SCH (08:07)
[2020-06-06] MEDS: Cyanocobalamin (B-12) 1,000 MCG TABLET PO SCH (08:08)
[2020-06-06] MEDS: carvediloL 6.25 MG TABLET PO SCH ×2 (08:09→16:12)
[2020-06-06] MEDS: Isosorbide MONOnitrate (24 HR) 30 MG TAB.ER.24H PO SCH (08:10)
[2020-06-06] MEDS: Potassium Chloride Elixir 20 MEQ/15 ML UDC PO SCH ×3 (08:10→20:14)
[2020-06-06] MEDS: Aspirin Enteric Coated 81 MG Tablet PO SCH (08:10)
[2020-06-06] MEDS: Acetaminophen/Butalbital/CaffeineTABLET PO PRN (09:47)
[2020-06-06] MEDS: Ondansetron 4 MG/2 ML VIAL IVP PRN (17:59)
[2020-06-07] MEDS: *HR* OxyCODONE/APAP 7.5/325 TABLET PO PRN ×3 (03:42→20:16)
[2020-06-07 04:31] LABS: BUN/Creatinine Ratio 37 (6-26); Blood Urea Nitrogen 20 mg/dL (6-20); Calcium 8.7 mg/dL (8.6-10.3); Carbon Dioxide 25 mEq/L (23-29); Chloride 107 mEq/L (98-107); Glucose 98 mg/dL (70-105); Osmolality,Calculated 289 (280-300); Potassium 3.9 mEq/L (3.5-5.1); Sodium 138 mEq/L (136-145); eGFR For African Americans > 60 (> 60); eGFR For Non-African Americans > 60 (> 60)
[2020-06-07] MEDS: niCARdipine 20 MG/200 ML MLS IVC SCH ×6 (04:59→20:09)
[2020-06-07] MEDS: *HR* Heparin 5,000 UNIT/ML VIAL SQ SCH ×2 (05:20→17:07)
[2020-06-07] MEDS: hydrALAZINE 25 MG TABLET PO SCH ×4 (05:21→20:12)
[2020-06-07] MEDS: hydroCHLOROthiazide 25 MG TABLET PO SCH (08:28)
[2020-06-07] MEDS: Spironolactone 25 MG TABLET PO SCH ×2 (08:28→20:12)
[2020-06-07] MEDS: Aspirin Enteric Coated 81 MG Tablet PO SCH (08:29)
[2020-06-07] MEDS: carvediloL 6.25 MG TABLET PO SCH ×2 (08:29→17:06)
[2020-06-07] MEDS: Cyanocobalamin (B-12) 1,000 MCG TABLET PO SCH (08:29)
[2020-06-07] MEDS: clonazePAM 1 MG TABLET PO SCH ×3 (08:29→20:11)
[2020-06-07] MEDS: Potassium Chloride Elixir 20 MEQ/15 ML UDC PO SCH ×3 (08:30→20:13)
[2020-06-07] MEDS: amLODIPine 5 MG TABLET PO SCH (08:30)
[2020-06-07] MEDS ORDERED: Isosorbide MONOnitrate (24 HR) 60 MG TAB.ER.24H PO SCH (09:00)
[2020-06-07] MEDS: Acetaminophen/Butalbital/CaffeineTABLET PO PRN (11:39)
[2020-06-07] MEDS: aMILoride 5 MG TABLET PO SCH (17:07)
[2020-06-07] MEDS: Ondansetron 4 MG/2 ML VIAL IVP PRN (17:07)
[2020-06-07] MEDS: Isosorbide MONOnitrate (24 HR) 60 MG TAB.ER.24H PO SCH (20:12)
[2020-06-08] MEDS: *HR* OxyCODONE/APAP 7.5/325 TABLET PO PRN ×3 (04:00→17:09)
[2020-06-08 04:41] LABS: BUN/Creatinine Ratio 29 (6-26); Blood Urea Nitrogen 22 mg/dL (6-20); Calcium 8.8 mg/dL (8.6-10.3); Carbon Dioxide 23 mEq/L (23-29); Chloride 109 mEq/L (98-107); Glucose 101 mg/dL (70-105); Osmolality,Calculated 289 (280-300); Potassium 4.1 mEq/L (3.5-5.1); Sodium 138 mEq/L (136-145); eGFR For African Americans > 60 (> 60); eGFR For Non-African Americans > 60 (> 60)
[2020-06-08] MEDS: *HR* Heparin 5,000 UNIT/ML VIAL SQ SCH ×2 (06:25→17:07)
[2020-06-08] MEDS: Potassium Chloride Elixir 20 MEQ/15 ML UDC PO SCH ×3 (08:52→21:18)
[2020-06-08] MEDS: Spironolactone 25 MG TABLET PO SCH ×2 (08:53→21:17)
[2020-06-08] MEDS: amLODIPine 5 MG TABLET PO SCH (08:53)
[2020-06-08] MEDS: hydrALAZINE 25 MG TABLET PO SCH ×3 (08:53→21:17)
[2020-06-08] MEDS: aMILoride 5 MG TABLET PO SCH (08:53)
[2020-06-08] MEDS: Isosorbide MONOnitrate (24 HR) 60 MG TAB.ER.24H PO SCH ×2 (08:54→21:17)
[2020-06-08] MEDS: Aspirin Enteric Coated 81 MG Tablet PO SCH (08:54)
[2020-06-08] MEDS: hydroCHLOROthiazide 25 MG TABLET PO SCH (08:54)
[2020-06-08] MEDS: carvediloL 6.25 MG TABLET PO SCH ×2 (08:54→17:04)
[2020-06-08] MEDS: clonazePAM 1 MG TABLET PO SCH ×3 (08:54→21:17)
[2020-06-08] MEDS: Cyanocobalamin (B-12) 1,000 MCG TABLET PO SCH (08:55)
[2020-06-08] MEDS: Ondansetron 4 MG/2 ML VIAL IVP PRN (09:00)
[2020-06-08] MEDS: Acetaminophen/Butalbital/CaffeineTABLET PO PRN ×2 (10:45→19:15)
[2020-06-08] MEDS: niCARdipine 20 MG/200 ML MLS IVC SCH ×3 (12:00→21:10)
[2020-06-09] MEDS: niCARdipine 20 MG/200 ML MLS IVC SCH ×2 (04:59→15:55)
[2020-06-09] MEDS: *HR* Heparin 5,000 UNIT/ML VIAL SQ SCH ×2 (04:59→17:30)
[2020-06-09 06:02] LABS: BUN/Creatinine Ratio 34 (6-26); Blood Urea Nitrogen 21 mg/dL (6-20); Calcium 8.3 mg/dL (8.6-10.3); Carbon Dioxide 22 mEq/L (23-29); Chloride 112 mEq/L (98-107); Glucose 106 mg/dL (70-105); Osmolality,Calculated 289 (280-300); Potassium 4.1 mEq/L (3.5-5.1); Sodium 138 mEq/L (136-145); eGFR For African Americans > 60 (> 60); eGFR For Non-African Americans > 60 (> 60)
[2020-06-09] MEDS: Ondansetron 4 MG/2 ML VIAL IVP PRN ×2 (06:17→22:44)
[2020-06-09] MEDS: *HR* OxyCODONE/APAP 7.5/325 TABLET PO PRN ×3 (06:18→22:44)
[2020-06-09] MEDS: Potassium Chloride Elixir 20 MEQ/15 ML UDC PO SCH ×3 (07:54→20:39)
[2020-06-09] MEDS: Cyanocobalamin (B-12) 1,000 MCG TABLET PO SCH (07:55)
[2020-06-09] MEDS: hydrALAZINE 25 MG TABLET PO SCH ×3 (07:56→20:41)
[2020-06-09] MEDS: hydroCHLOROthiazide 25 MG TABLET PO SCH (07:56)
[2020-06-09] MEDS: carvediloL 6.25 MG TABLET PO SCH ×2 (07:56→22:37)
[2020-06-09] MEDS: aMILoride 5 MG TABLET PO SCH (07:57)
[2020-06-09] MEDS: clonazePAM 1 MG TABLET PO SCH ×3 (07:57→20:42)
[2020-06-09] MEDS: Aspirin Enteric Coated 81 MG Tablet PO SCH (07:57)
[2020-06-09] MEDS: amLODIPine 5 MG TABLET PO SCH (07:57)
[2020-06-09] MEDS: Spironolactone 25 MG TABLET PO SCH ×2 (07:57→20:43)
[2020-06-09] MEDS: Isosorbide MONOnitrate (24 HR) 60 MG TAB.ER.24H PO SCH ×2 (07:57→20:43)
[2020-06-09] MEDS ORDERED: aMILoride 5 MG TABLET PO SCH (09:00)
[2020-06-09] MEDS ORDERED: Isosorbide MONOnitrate (24 HR) 60 MG TAB.ER.24H PO SCH (09:00)
[2020-06-09] MEDS: Acetaminophen/Butalbital/CaffeineTABLET PO PRN ×2 (09:21→20:41)
[2020-06-09] MEDS ORDERED: aMILoride 5 MG TABLET PO ONE (10:00)
[2020-06-10] MEDS: niCARdipine 20 MG/200 ML MLS IVC SCH (00:24)
[2020-06-10 05:25] LABS: BUN/Creatinine Ratio 32 (6-26); Blood Urea Nitrogen 21 mg/dL (6-20); Calcium 8.6 mg/dL (8.6-10.3); Carbon Dioxide 24 mEq/L (23-29); Chloride 110 mEq/L (98-107); Glucose 95 mg/dL (70-105); Osmolality,Calculated 291 (280-300); Potassium 4.1 mEq/L (3.5-5.1); Sodium 139 mEq/L (136-145); eGFR For African Americans > 60 (> 60); eGFR For Non-African Americans > 60 (> 60)
[2020-06-10] MEDS: *HR* Heparin 5,000 UNIT/ML VIAL SQ SCH ×2 (06:38→17:17)
[2020-06-10] MEDS: *HR* OxyCODONE/APAP 7.5/325 TABLET PO PRN ×3 (06:45→20:48)
[2020-06-10] MEDS: Ondansetron 4 MG/2 ML VIAL IVP PRN ×2 (06:45→15:52)
[2020-06-10] MEDS: Potassium Chloride Elixir 20 MEQ/15 ML UDC PO SCH ×3 (08:17→20:44)
[2020-06-10] MEDS: Isosorbide MONOnitrate (24 HR) 60 MG TAB.ER.24H PO SCH (08:18)
[2020-06-10] MEDS: clonazePAM 1 MG TABLET PO SCH ×3 (08:18→20:45)
[2020-06-10] MEDS: Cyanocobalamin (B-12) 1,000 MCG TABLET PO SCH (08:18)
[2020-06-10] MEDS: aMILoride 5 MG TABLET PO SCH (08:18)
[2020-06-10] MEDS: Aspirin Enteric Coated 81 MG Tablet PO SCH (08:19)
[2020-06-10] MEDS: hydrALAZINE 25 MG TABLET PO SCH ×3 (08:20→20:45)
[2020-06-10] MEDS: amLODIPine 5 MG TABLET PO SCH (08:20)
[2020-06-10] MEDS: carvediloL 6.25 MG TABLET PO SCH ×2 (08:20→17:18)
[2020-06-10] MEDS: Spironolactone 25 MG TABLET PO SCH ×2 (08:20→20:45)
[2020-06-10] MEDS: hydroCHLOROthiazide 25 MG TABLET PO SCH (08:29)
[2020-06-10] MEDS: Acetaminophen/Butalbital/CaffeineTABLET PO PRN (09:22)
[2020-06-10] MEDS ORDERED: Isosorbide MONOnitrate (24 HR) 30 MG TAB.ER.24H PO ONE (10:32)
[2020-06-10] MEDS ORDERED: hydrALAZINE 25 MG TABLET PO ONE (10:34)
[2020-06-10] MEDS: Isosorbide MONOnitrate (24 HR) 30 MG TAB.ER.24H PO SCH (20:45)
[2020-06-11 04:17] LABS: BUN/Creatinine Ratio 34 (6-26); Blood Urea Nitrogen 24 mg/dL (6-20); Calcium 8.5 mg/dL (8.6-10.3); Carbon Dioxide 22 mEq/L (23-29); Chloride 109 mEq/L (98-107); Glucose 104 mg/dL (70-105); Osmolality,Calculated 290 (280-300); Potassium 4.4 mEq/L (3.5-5.1); Sodium 138 mEq/L (136-145); eGFR For African Americans > 60 (> 60); eGFR For Non-African Americans > 60 (> 60)
[2020-06-11] MEDS: *HR* Heparin 5,000 UNIT/ML VIAL SQ SCH ×2 (05:10→18:03)
[2020-06-11] MEDS: *HR* Labetalol 20 MG/4 ML SYRINGE IVP PRN ×2 (05:13→22:22)
[2020-06-11] MEDS: Isosorbide MONOnitrate (24 HR) 30 MG TAB.ER.24H PO SCH ×2 (08:17→19:58)
[2020-06-11] MEDS: Potassium Chloride Elixir 20 MEQ/15 ML UDC PO SCH ×3 (08:17→19:56)
[2020-06-11] MEDS: clonazePAM 1 MG TABLET PO SCH ×3 (08:18→19:57)
[2020-06-11] MEDS: hydroCHLOROthiazide 25 MG TABLET PO SCH (08:18)
[2020-06-11] MEDS: *HR* OxyCODONE/APAP 7.5/325 TABLET PO PRN ×2 (08:18→16:37)
[2020-06-11] MEDS: Spironolactone 25 MG TABLET PO SCH ×2 (08:18→19:57)
[2020-06-11] MEDS: Aspirin Enteric Coated 81 MG Tablet PO SCH (08:18)
[2020-06-11] MEDS: hydrALAZINE 25 MG TABLET PO SCH ×3 (08:18→19:58)
[2020-06-11] MEDS: aMILoride 5 MG TABLET PO SCH (08:19)
[2020-06-11] MEDS: Cyanocobalamin (B-12) 1,000 MCG TABLET PO SCH (08:19)
[2020-06-11] MEDS: carvediloL 6.25 MG TABLET PO SCH ×2 (08:19→18:03)
[2020-06-11] MEDS: amLODIPine 5 MG TABLET PO SCH (08:20)
[2020-06-11] MEDS: Acetaminophen/Butalbital/CaffeineTABLET PO PRN ×2 (11:29→19:24)
[2020-06-11] MEDS: Ondansetron 4 MG/2 ML VIAL IVP PRN (14:03)
[2020-06-12] MEDS: Acetaminophen/Butalbital/CaffeineTABLET PO PRN (04:45)
[2020-06-12] MEDS: *HR* Labetalol 20 MG/4 ML SYRINGE IVP PRN (04:46)
[2020-06-12] MEDS: Ondansetron 4 MG/2 ML VIAL IVP PRN ×2 (04:46→20:27)
[2020-06-12 05:21] LABS: BUN/Creatinine Ratio 29 (6-26); Blood Urea Nitrogen 24 mg/dL (6-20); Calcium 8.6 mg/dL (8.6-10.3); Carbon Dioxide 22 mEq/L (23-29); Chloride 110 mEq/L (98-107); Glucose 101 mg/dL (70-105); Osmolality,Calculated 294 (280-300); Potassium 4.2 mEq/L (3.5-5.1); Sodium 140 mEq/L (136-145); eGFR For African Americans > 60 (> 60); eGFR For Non-African Americans > 60 (> 60)
[2020-06-12] MEDS: *HR* Heparin 5,000 UNIT/ML VIAL SQ SCH ×2 (06:10→16:59)
[2020-06-12] MEDS: *HR* OxyCODONE/APAP 7.5/325 TABLET PO PRN ×3 (07:27→21:36)
[2020-06-12] MEDS: Cyanocobalamin (B-12) 1,000 MCG TABLET PO SCH (07:52)
[2020-06-12] MEDS: Potassium Chloride Elixir 20 MEQ/15 ML UDC PO SCH ×3 (07:54→15:49)
[2020-06-12] MEDS: aMILoride 5 MG TABLET PO SCH ×2 (07:57→20:14)
[2020-06-12] MEDS: hydroCHLOROthiazide 25 MG TABLET PO SCH (07:57)
[2020-06-12] MEDS: hydrALAZINE 25 MG TABLET PO SCH ×4 (07:57→20:16)
[2020-06-12] MEDS: Isosorbide MONOnitrate (24 HR) 30 MG TAB.ER.24H PO SCH ×2 (07:57→20:15)
[2020-06-12] MEDS: Aspirin Enteric Coated 81 MG Tablet PO SCH (07:58)
[2020-06-12] MEDS: amLODIPine 5 MG TABLET PO SCH (07:58)
[2020-06-12] MEDS: carvediloL 6.25 MG TABLET PO SCH ×2 (07:58→16:58)
[2020-06-12] MEDS: Spironolactone 25 MG TABLET PO SCH ×2 (07:58→20:16)
[2020-06-12] MEDS: clonazePAM 1 MG TABLET PO SCH ×3 (07:59→20:17)
[2020-06-12] MEDS ORDERED: hydrALAZINE 25 MG TABLET PO ONE (08:53)
[2020-06-12] MEDS: CloNIDine Patch 0.3 MG PATCH (WEEKLY) TD SCH (09:11)
[2020-06-13] MEDS: *HR* Heparin 5,000 UNIT/ML VIAL SQ SCH ×2 (06:15→17:26)
[2020-06-13] MEDS: *HR* OxyCODONE/APAP 7.5/325 TABLET PO PRN ×3 (07:53→23:25)
[2020-06-13] MEDS: carvediloL 6.25 MG TABLET PO SCH ×2 (08:26→17:25)
[2020-06-13] MEDS ORDERED: NIFEdipine XL (24 HR) 60 MG TAB.ER.24 PO SCH (09:00)
[2020-06-13] MEDS ORDERED: NIFEdipine XL (24 HR) 30 MG TAB.ER.24 PO SCH (09:00)
[2020-06-13] MEDS: Potassium Chloride Elixir 20 MEQ/15 ML UDC PO SCH (09:02)
[2020-06-13] MEDS: Spironolactone 25 MG TABLET PO SCH ×2 (09:03→21:18)
[2020-06-13] MEDS: Isosorbide MONOnitrate (24 HR) 30 MG TAB.ER.24H PO SCH ×2 (09:03→21:19)
[2020-06-13] MEDS: hydrALAZINE 25 MG TABLET PO SCH ×3 (09:03→21:18)
[2020-06-13] MEDS: aMILoride 5 MG TABLET PO SCH ×2 (09:04→21:17)
[2020-06-13] MEDS: hydroCHLOROthiazide 25 MG TABLET PO SCH (09:04)
[2020-06-13] MEDS: amLODIPine 5 MG TABLET PO SCH (09:04)
[2020-06-13] MEDS: Aspirin Enteric Coated 81 MG Tablet PO SCH (09:04)
[2020-06-13] MEDS: clonazePAM 1 MG TABLET PO SCH ×3 (09:05→21:18)
[2020-06-13] MEDS: Cyanocobalamin (B-12) 1,000 MCG TABLET PO SCH (09:05)
[2020-06-13] MEDS: Ondansetron 4 MG/2 ML VIAL IVP PRN (09:13)
[2020-06-13 09:53] LABS: BUN/Creatinine Ratio 23 (6-26); Blood Urea Nitrogen 21 mg/dL (6-20); Calcium 8.9 mg/dL (8.6-10.3); Carbon Dioxide 26 mEq/L (23-29); Chloride 105 mEq/L (98-107); Glucose 101 mg/dL (70-105); Magnesium 1.7 mg/dL (1.6-2.6); Osmolality,Calculated 285 (280-300); Potassium 5.2 mEq/L (3.5-5.1); Sodium 136 mEq/L (136-145); eGFR For African Americans > 60 (> 60); eGFR For Non-African Americans > 60 (> 60)
[2020-06-13] MEDS: Acetaminophen/Butalbital/CaffeineTABLET PO PRN (10:52)
[2020-06-13] MEDS: niCARdipine 20 MG/200 ML MLS IVC SCH (23:24)
[2020-06-14] MEDS: Ondansetron 4 MG/2 ML VIAL IVP PRN ×2 (04:13→11:38)
[2020-06-14 05:38] LABS: Alanine Aminotransferase 20 Units/L (7-52); Albumin 3.5 g/dL (3.5-5.7); Albumin/Globulin Ratio 1.8 (1.1-2.2); Alkaline Phosphatase 76 Units/L (34-104); Aspartate Amino Transferase 15 Units/L (13-39); BUN/Creatinine Ratio 32 (6-26); Bilirubin,Total 0.2 mg/dL (0.3-1.0); Blood Urea Nitrogen 22 mg/dL (6-20); Calcium 8.9 mg/dL (8.6-10.3); Carbon Dioxide 28 mEq/L (23-29); Chloride 105 mEq/L (98-107); Glucose 103 mg/dL (70-105); Osmolality,Calculated 290 (280-300); Potassium 4.2 mEq/L (3.5-5.1); Sodium 138 mEq/L (136-145); Total Protein 5.5 g/dL (6.4-8.9); eGFR For African Americans > 60 (> 60); eGFR For Non-African Americans > 60 (> 60)
[2020-06-14] MEDS: *HR* OxyCODONE/APAP 7.5/325 TABLET PO PRN ×2 (06:59→16:38)
[2020-06-14] MEDS: *HR* Heparin 5,000 UNIT/ML VIAL SQ SCH ×2 (06:59→16:39)
[2020-06-14] MEDS: amLODIPine 5 MG TABLET PO SCH (07:20)
[2020-06-14] MEDS: Cyanocobalamin (B-12) 1,000 MCG TABLET PO SCH (07:20)
[2020-06-14] MEDS: hydroCHLOROthiazide 25 MG TABLET PO SCH (07:21)
[2020-06-14] MEDS: clonazePAM 1 MG TABLET PO SCH ×3 (07:21→20:16)
[2020-06-14] MEDS: aMILoride 5 MG TABLET PO SCH ×2 (07:21→20:16)
[2020-06-14] MEDS: carvediloL 6.25 MG TABLET PO SCH ×2 (07:21→16:39)
[2020-06-14] MEDS: hydrALAZINE 25 MG TABLET PO SCH ×3 (07:22→20:16)
[2020-06-14] MEDS: Spironolactone 25 MG TABLET PO SCH ×2 (07:22→20:17)
[2020-06-14] MEDS: Aspirin Enteric Coated 81 MG Tablet PO SCH (07:22)
[2020-06-14] MEDS: Isosorbide MONOnitrate (24 HR) 30 MG TAB.ER.24H PO SCH ×2 (07:22→20:17)
[2020-06-14] MEDS: Acetaminophen/Butalbital/CaffeineTABLET PO PRN (09:53)
[2020-06-14] MEDS ORDERED: 0.9 % Sodium Chloride 1,000 ML ONE ×2 (10:30→10:35)
[2020-06-14] MEDS ORDERED: Heparin 1,000 UNITS/500 mL 500 ML ONE (10:35)
[2020-06-14] MEDS ORDERED: Nitroglycerin 1,000 MCG/10 ML VIAL IV ONE (10:36)
[2020-06-14] MEDS ORDERED: ISOVUE-370 200 ML INFUS..BTL ONE (10:36)
[2020-06-14] MEDS ORDERED: *HR* Heparin 10,000 UNIT/10 ML VIAL ONE (10:36)
[2020-06-14] MEDS ORDERED: *HR* FentaNYL (PF) 100 MCG/2 ML VIAL ONE (10:43)
[2020-06-14] MEDS ORDERED: *HR* Midazolam HCl 2 MG/2 ML VIAL ONE (10:44)
[2020-06-14] MEDS: Potassium Chloride Elixir 20 MEQ/15 ML UDC PO SCH ×2 (14:07→20:14)
[2020-06-15] MEDS: *HR* Heparin 5,000 UNIT/ML VIAL SQ SCH (04:52)
[2020-06-15] MEDS: *HR* OxyCODONE/APAP 7.5/325 TABLET PO PRN (04:55)
[2020-06-15] MEDS: carvediloL 6.25 MG TABLET PO SCH (08:23)
[2020-06-15] MEDS: Cyanocobalamin (B-12) 1,000 MCG TABLET PO SCH (08:32)
[2020-06-15] MEDS: Potassium Chloride Elixir 20 MEQ/15 ML UDC PO SCH (08:32)
[2020-06-15] MEDS: clonazePAM 1 MG TABLET PO SCH (08:32)
[2020-06-15] MEDS: Aspirin Enteric Coated 81 MG Tablet PO SCH (08:33)
[2020-06-15] MEDS: amLODIPine 5 MG TABLET PO SCH (08:33)
[2020-06-15] MEDS: aMILoride 5 MG TABLET PO SCH (08:34)
[2020-06-15] MEDS: hydrALAZINE 25 MG TABLET PO SCH (08:34)
[2020-06-15] MEDS: Spironolactone 25 MG TABLET PO SCH (08:34)
[2020-06-15] MEDS: Isosorbide MONOnitrate (24 HR) 30 MG TAB.ER.24H PO SCH (08:35)
[2020-06-15] MEDS: hydroCHLOROthiazide 25 MG TABLET PO SCH (08:35)
[2020-06-15] MEDS: Ondansetron 4 MG/2 ML VIAL IVP PRN (10:44)
[2020-06-15] MEDS: Acetaminophen/Butalbital/CaffeineTABLET PO PRN (10:44)
[2020-06-15] MEDS ORDERED: FLU Vac QV 20-21 (6Month+)/PF 0.5 ML SYRINGE IM ONE (10:52)
[2020-06-15 11:15] VITALS: BP 155/93
== END 2020-06-15 13:38 | disposition home health service (06) | DRG 287 ==
LOC: EMEROOARM 17:19 → 2ANU 17:19 → SUATTDRO 05-24 12:04 → 2NNU 05-29 09:45
PROVIDERS: ADMIT Student in an Organized Health Care Education/Training Program; ATTEND Internal Medicine

== ENCOUNTER 2021-09-02 10:40 | Inpatient (IN) ==
[2021-09-02] MEDS ORDERED: Isovue-370 500 ML BOTTLE IVP ONE (10:57)
[2021-09-02] MEDS ORDERED: *HR* Promethazine 25 MG/ML VIAL IM ONE (11:11)
[2021-09-02 11:30] LABS: Basophils % 0.2 %; Hematocrit 50.9 % (35.3-44.9); Hemoglobin 17.1 g/dL (11.5-15.4); Immature Granulocytes % 0.3 % (0-4); Lymphocytes # 1.8 K/mcL (0.6-4.6); Mean Corpuscular HGB Conc 33.6 g/dL (31.6-35.5); Mean Corpuscular Volume 92.4 fL (83.0-100.0); Mean Platelet Volume 9.5 fL (9.4-12.4); Monocytes # 0.5 K/mcL (0.0-1.3); Monocytes % 4.3 %; Platelet Count 296 K/mcL (140-400); Red Blood Count 5.51 M/mcL (3.82-4.97); Red Cell Distribution Width 12.4 % (11.5-14.5); Segmented Neutrophils % 79.2 %; White Blood Count 11.4 K/mcL (4.3-11.1)
[2021-09-02 12:01] LABS: Alanine Aminotransferase 9 Units/L (7-52); Albumin 4.6 g/dL (3.5-5.7); Albumin/Globulin Ratio 1.6 (1.1-2.2); Alkaline Phosphatase 101 Units/L (34-104); Aspartate Amino Transferase 13 Units/L (13-39); BUN/Creatinine Ratio 31 (6-26); Bilirubin,Total 0.6 mg/dL (0.3-1.0); Blood Urea Nitrogen 29 mg/dL (6-20); Calcium 9.6 mg/dL (8.6-10.3); Carbon Dioxide 24 mEq/L (23-29); Chloride 102 mEq/L (98-107); Globulin 2.9 g/dL (2.4-3.5); Glucose 154 mg/dL (70-105); Lipase < 3 Units/L (11-82); Osmolality,Calculated 291 (280-300); Potassium 3.6 mEq/L (3.5-5.1); Sodium 136 mEq/L (136-145); Total Protein 7.5 g/dL (6.4-8.9); Troponin I < 0.03 ng/mL (< 0.04); eGFR For African Americans > 60 (> 60); eGFR For Non-African Americans > 60 (> 60)
[2021-09-02] MEDS ORDERED: 0.9 % Sodium Chloride 1,000 ML IV ONE (12:48)
[2021-09-02 12:51] LABS: Influenza A PCR Negative (Negative); Influenza B PCR Negative (Negative); Resp. Syncytial Virus PCR Negative (Negative)
[2021-09-02 13:00] LABS: SARS-CoV-2 by PCR (In House) Negative (Negative)
[2021-09-02] MEDS ORDERED: Morphine Sulfate 2 MG/ML SYRINGE IVP ONE (14:06)
[2021-09-02] MEDS ORDERED: MetroNIDAZOLE 500 MG/100 ML 500 MG/100 ML BAG IVPB ONE (14:06)
[2021-09-02] MEDS ORDERED: cefTRIAXone 1,000 MG in Water for inj. (sterile) 10 ML IVP ONE (14:06)
[2021-09-02 14:20] LABS: Bacteria,Urine Few per hpf (None-Few); Bilirubin,Urine Negative (Negative); Blood,Urine Small (Negative); Clarity,Urine Clear (Clear); Color,Urine Light-Orange (Yellow); Glucose,Urine (UA) 30 mg/dL (Normal); Ketones,Urine Trace mg/dL (Negative); Leukocyte Esterase,Urine Negative (Negative); Mucus,Urine Few per lpf (None-Few); Nitrite,Urine Negative (Negative); Protein,Urine 70 mg/dL (Neg-Trace); Specific Gravity,Urine > 1.030 (1.010-1.025); Squamous Epithelial Cell,Urine Moderate per hpf (None-Few); Urobilinogen,Urine Normal (Normal)
[2021-09-02] MEDS ORDERED: Naloxone 0.4 MG/ML INJ IVP PRN (15:26)
[2021-09-02] MEDS ORDERED: Acetaminophen 325 MG TABLET PO PRN (15:26)
[2021-09-02] MEDS ORDERED: Perflutren Lipid Microsphere 1.3 ML in 0.9 % Sodium Chloride 8.7 ML IVP PRN (15:30)
[2021-09-02] MEDS ORDERED: Ringers Solution, Lactated 1,000 ML IVC SCH (15:30)
[2021-09-02] MEDS ORDERED: CloNIDine Patch 0.2 MG PATCH (WEEKLY) TD SCH (16:00)
[2021-09-02] MEDS: Piperacillin/Tazobactam 3.375 GM in 0.9 % Sodium Chloride Mini Bag 100 ML IVPB SCH ×2 (17:47→23:35)
[2021-09-02] MEDS ORDERED: *HR* HYDROcodone/Acet 5/325 mg TABLET PO ONE (19:58)
[2021-09-02] MEDS: Ondansetron 4 MG/2 ML VIAL IVP PRN (20:08)
[2021-09-02] MEDS ORDERED: Isosorbide MONOnitrate (24 HR) 30 MG TAB.ER.24H PO SCH (21:00)
[2021-09-02] MEDS ORDERED: cloNIDine HCL 0.1 MG TABLET PO SCH (21:00)
[2021-09-03] MEDS: *HR* Enoxaparin 40 MG/0.4 ML SYRINGE SQ SCH (05:04)
[2021-09-03] MEDS: Ondansetron 4 MG/2 ML VIAL IVP PRN ×2 (05:04→13:04)
[2021-09-03 05:44] LABS: Basophils % 0.4 %; Eosinophils % 0.4 %; Hematocrit 42.8 % (35.3-44.9); Immature Granulocytes % 0.3 % (0-4); Lymphocytes % 25.4 %; Mean Corpuscular HGB Conc 32.2 g/dL (31.6-35.5); Mean Corpuscular Hemoglobin 30.7 pg (28.0-33.3); Mean Corpuscular Volume 95.1 fL (83.0-100.0); Mean Platelet Volume 9.6 fL (9.4-12.4); Monocytes # 0.5 K/mcL (0.0-1.3); Monocytes % 6.3 %; Neutrophils # 5.3 K/mcL (1.6-8.9); Platelet Count 225 K/mcL (140-400); Red Cell Distribution Width 12.4 % (11.5-14.5); Segmented Neutrophils % 67.2 %; White Blood Count 7.9 K/mcL (4.3-11.1)
[2021-09-03 05:45] LABS: Hemoglobin 13.8 g/dL (11.5-15.4)
[2021-09-03 06:01] LABS: INR 1.2; Prothrombin Time 13.6 Seconds (9.4-12.1)
[2021-09-03 06:04] LABS: Activated Partial Thrombo Time 31.7 Seconds (26.0-36.0)
[2021-09-03] MEDS: Piperacillin/Tazobactam 3.375 GM in 0.9 % Sodium Chloride Mini Bag 100 ML IVPB SCH ×3 (08:10→21:10)
[2021-09-03 08:12] LABS: BUN/Creatinine Ratio 22 (6-26); Blood Urea Nitrogen 16 mg/dL (6-20); C-Reactive Protein 22 mg/L (Less than 10); Calcium 8.1 mg/dL (8.6-10.3); Carbon Dioxide 24 mEq/L (23-29); Chloride 105 mEq/L (98-107); Glucose 104 mg/dL (70-105); Osmolality,Calculated 279 (280-300); Phosphorous 2.4 mg/dL (2.7-4.5); Potassium 3.2 mEq/L (3.5-5.1); Sodium 134 mEq/L (136-145); eGFR For African Americans > 60 (> 60); eGFR For Non-African Americans > 60 (> 60)
[2021-09-03] MEDS: Cyanocobalamin (B-12) 1,000 MCG TABLET PO SCH (08:12)
[2021-09-03] MEDS: Pantoprazole 40 MG VIAL IVP SCH (08:14)
[2021-09-03] MEDS ORDERED: hydrALAZINE 25 MG TABLET PO PRN (08:42)
[2021-09-03] MEDS ORDERED: Acetaminophen/Butalbital/CaffeineTABLET PO PRN (08:42)
[2021-09-03] MEDS ORDERED: Diphenoxylate/Atropine 1 TAB TABLET PO PRN (08:42)
[2021-09-03] MEDS ORDERED: clonazePAM 1 MG TABLET PO PRN (08:42)
[2021-09-03] MEDS: carvediloL 6.25 MG TABLET PO SCH ×2 (12:44→21:10)
[2021-09-03] MEDS: *HR* OxyCODONE/APAP 5/325 TABLET PO PRN ×2 (12:48→23:46)
[2021-09-03] MEDS: Aspirin Enteric Coated 81 MG Tablet PO SCH (12:49)
[2021-09-03] MEDS: amLODIPine 5 MG TABLET PO SCH (12:49)
[2021-09-03] MEDS: Cholecalciferol (D-3) 1,000 UNIT (25MCG) TABLET PO SCH (13:04)
[2021-09-03] MEDS: *HR* Promethazine 25 MG/ML VIAL IM PRN (19:21)
[2021-09-04 04:22] LABS: Basophils % 0.3 %; Eosinophils % 0.6 %; Hematocrit 41.2 % (35.3-44.9); Hemoglobin 13.2 g/dL (11.5-15.4); Immature Granulocytes % 0.2 % (0-4); Lymphocytes # 2.3 K/mcL (0.6-4.6); Mean Corpuscular Hemoglobin 30.6 pg (28.0-33.3); Mean Corpuscular Volume 95.4 fL (83.0-100.0); Mean Platelet Volume 9.7 fL (9.4-12.4); Monocytes # 0.4 K/mcL (0.0-1.3); Monocytes % 6.9 %; Neutrophils # 3.4 K/mcL (1.6-8.9); Platelet Count 220 K/mcL (140-400); Red Blood Count 4.32 M/mcL (3.82-4.97); White Blood Count 6.2 K/mcL (4.3-11.1)
[2021-09-04 04:33] LABS: BUN/Creatinine Ratio 14 (6-26); Blood Urea Nitrogen 10 mg/dL (6-20); Calcium 8.1 mg/dL (8.6-10.3); Carbon Dioxide 24 mEq/L (23-29); Chloride 107 mEq/L (98-107); Glucose 91 mg/dL (70-105); Magnesium 1.8 mg/dL (1.6-2.6); Osmolality,Calculated 285 (280-300); Phosphorous 2.7 mg/dL (2.7-4.5); Potassium 3.9 mEq/L (3.5-5.1); Sodium 138 mEq/L (136-145); eGFR For African Americans > 60 (> 60); eGFR For Non-African Americans > 60 (> 60)
[2021-09-04] MEDS: Piperacillin/Tazobactam 3.375 GM in 0.9 % Sodium Chloride Mini Bag 100 ML IVPB SCH ×3 (05:22→20:42)
[2021-09-04] MEDS: *HR* Enoxaparin 40 MG/0.4 ML SYRINGE SQ SCH (05:34)
[2021-09-04] MEDS: *HR* Promethazine 25 MG/ML VIAL IM PRN ×3 (05:46→23:13)
[2021-09-04] MEDS: Cholecalciferol (D-3) 1,000 UNIT (25MCG) TABLET PO SCH (09:26)
[2021-09-04] MEDS: Cyanocobalamin (B-12) 1,000 MCG TABLET PO SCH (09:26)
[2021-09-04] MEDS: Aspirin Enteric Coated 81 MG Tablet PO SCH (09:26)
[2021-09-04] MEDS: amLODIPine 5 MG TABLET PO SCH (09:28)
[2021-09-04] MEDS: carvediloL 6.25 MG TABLET PO SCH ×2 (09:28→17:27)
[2021-09-04] MEDS: Pantoprazole 40 MG VIAL IVP SCH (09:31)
[2021-09-04] MEDS: *HR* OxyCODONE/APAP 5/325 TABLET PO PRN (14:48)
[2021-09-04] MEDS: aMILoride 5 MG TABLET PO SCH (20:42)
[2021-09-04] MEDS: Spironolactone 25 MG TABLET PO SCH (20:42)
[2021-09-05 05:05] LABS: BUN/Creatinine Ratio 12 (6-26); Blood Urea Nitrogen 9 mg/dL (6-20); Calcium 8.3 mg/dL (8.6-10.3); Carbon Dioxide 25 mEq/L (23-29); Chloride 109 mEq/L (98-107); Glucose 80 mg/dL (70-105); Magnesium 1.8 mg/dL (1.6-2.6); Osmolality,Calculated 288 (280-300); Phosphorous 3.3 mg/dL (2.7-4.5); Potassium 3.6 mEq/L (3.5-5.1); Sodium 140 mEq/L (136-145); eGFR For African Americans > 60 (> 60); eGFR For Non-African Americans > 60 (> 60)
[2021-09-05] MEDS: Piperacillin/Tazobactam 3.375 GM in 0.9 % Sodium Chloride Mini Bag 100 ML IVPB SCH (06:11)
[2021-09-05] MEDS: *HR* Enoxaparin 40 MG/0.4 ML SYRINGE SQ SCH (06:11)
[2021-09-05] MEDS: Ondansetron 4 MG/2 ML VIAL IVP PRN (08:57)
[2021-09-05] MEDS: carvediloL 6.25 MG TABLET PO SCH (08:58)
[2021-09-05] MEDS: aMILoride 5 MG TABLET PO SCH (08:58)
[2021-09-05] MEDS: Spironolactone 25 MG TABLET PO SCH (08:58)
[2021-09-05] MEDS: Cyanocobalamin (B-12) 1,000 MCG TABLET PO SCH (08:59)
[2021-09-05] MEDS: *HR* OxyCODONE/APAP 5/325 TABLET PO PRN (08:59)
[2021-09-05] MEDS: Aspirin Enteric Coated 81 MG Tablet PO SCH (08:59)
[2021-09-05] MEDS: Cholecalciferol (D-3) 1,000 UNIT (25MCG) TABLET PO SCH (08:59)
[2021-09-05] MEDS: amLODIPine 5 MG TABLET PO SCH (08:59)
[2021-09-05 11:31] VITALS: BP 148/78; PULSE 50; TEMP 97.9; O2SAT 96
== END 2021-09-05 12:19 | disposition home health service (06) | DRG 392 ==
LOC: 3ANU 10:40 → EMEROOARM 10:40 → 3ANU 16:59 → SUATTDRO 09-04 14:11
PROVIDERS: ADMIT Internal Medicine; ATTEND Internal Medicine

== ENCOUNTER 2022-04-10 13:44 | Inpatient (IN) ==
[2022-04-10] MEDS ORDERED: Aspirin 81 MG TAB.CHEW PO ONE (13:50)
[2022-04-10] MEDS: Nitroglycerin 0.4 MG TAB.SUBL SL PRN ×2 (14:08→14:13)
[2022-04-10 14:33] LABS: Basophils # 0.1 K/mcL (0.0-0.2); Basophils % 0.9 %; Eosinophils # 0.1 K/mcL (0.0-0.6); Eosinophils % 1.4 %; Hematocrit 46.8 % (35.3-44.9); Hemoglobin 15.4 g/dL (11.5-15.4); Immature Granulocytes % 0.1 % (0-4); Lymphocytes # 2.6 K/mcL (0.6-4.6); Mean Corpuscular HGB Conc 32.9 g/dL (31.6-35.5); Mean Corpuscular Hemoglobin 30.6 pg (28.0-33.3); Mean Platelet Volume 9.7 fL (9.4-12.4); Monocytes # 0.5 K/mcL (0.0-1.3); Neutrophils # 3.8 K/mcL (1.6-8.9); Platelet Count 287 K/mcL (140-400); Red Blood Count 5.03 M/mcL (3.82-4.97); Red Cell Distribution Width 12.2 % (11.5-14.5); Segmented Neutrophils % 53.6 %
[2022-04-10 14:37] LABS: Activated Partial Thrombo Time 39.1 Seconds (26.0-36.0)
[2022-04-10 14:38] LABS: INR 1.3; Prothrombin Time 14.2 Seconds (9.4-12.1)
[2022-04-10 14:57] LABS: BUN/Creatinine Ratio 17 (6-26); Blood Urea Nitrogen 11 mg/dL (6-20); Calcium 9.1 mg/dL (8.6-10.3); Carbon Dioxide 25 mEq/L (23-29); Chloride 107 mEq/L (98-107); Glucose 114 mg/dL (70-105); Osmolality,Calculated 290 (280-300); Potassium 3.7 mEq/L (3.5-5.1); Sodium 140 mEq/L (136-145); Troponin I < 0.03 ng/mL (< 0.04); eGFR For African Americans > 60 (> 60); eGFR For Non-African Americans > 60 (> 60)
[2022-04-10] MEDS ORDERED: Metoclopramide 10 MG/2 ML VIAL IVP ONE (15:04)
[2022-04-10] MEDS ORDERED: Naloxone 0.4 MG/ML INJ IVP PRN (15:55)
[2022-04-10] MEDS ORDERED: Nitroglycerin 0.4 MG TAB.SUBL SL PRN (16:12)
[2022-04-10] MEDS ORDERED: *HR* HYDROmorphone (PF) 1 MG/ML SYRINGE IVP STA (16:51)
[2022-04-10] MEDS ORDERED: Furosemide 40 MG TABLET PO PRN (16:54)
[2022-04-10] MEDS ORDERED: Diphenoxylate/Atropine 1 TAB TABLET PO PRN (16:54)
[2022-04-10] MEDS ORDERED: Levalbuterol Neb 0.63 MG/3 ML IH PRN (17:09)
[2022-04-10] MEDS ORDERED: Perflutren Lipid Microsphere 1.3 ML in 0.9 % Sodium Chloride 8.7 ML IVP PRN (17:09)
[2022-04-10] MEDS: *HR* HYDROmorphone 2 MG/ML SYRINGE IVP PRN (17:53)
[2022-04-10 18:20] LABS: Magnesium 1.5 mg/dL (1.6-2.6)
[2022-04-10] MEDS: Melatonin 3 MG TABLET PO PRN (22:13)
[2022-04-10] MEDS: hydrALAZINE 25 MG TABLET PO SCH (22:13)
[2022-04-10] MEDS: clonazePAM 1 MG TABLET PO PRN (22:13)
[2022-04-10] MEDS: Spironolactone 25 MG TABLET PO SCH (22:13)
[2022-04-10] MEDS: cloNIDine HCL 0.1 MG TABLET PO SCH (22:14)
[2022-04-10] MEDS: *HR* OxyCODONE/APAP 7.5/325 TABLET PO PRN (22:35)
[2022-04-10 23:13] LABS: Albumin 3.5 g/dL (3.5-5.7); Albumin/Globulin Ratio 1.5 (1.1-2.2); Bilirubin,Direct 0.1 mg/dL (0.0-0.2); Bilirubin,Indirect 0.2 mg/dL (0.0-1.0); Bilirubin,Total 0.3 mg/dL (0.3-1.0); Globulin 2.3 g/dL (2.4-3.5); Magnesium 2.3 mg/dL (1.6-2.6); Phosphorous 3.2 mg/dL (2.7-4.5); Total Protein 5.8 g/dL (6.4-8.9)
[2022-04-10 23:14] LABS: Troponin I < 0.03 ng/mL (< 0.04)
[2022-04-10 23:28] LABS: Thyroid Stimulating Hormone 0.266 mcIU/mL (0.340-5.600)
[2022-04-11] MEDS: *HR* HYDROmorphone 2 MG/ML SYRINGE IVP PRN ×3 (01:09→20:09)
[2022-04-11] MEDS: Ondansetron ODT 4 MG TAB.RAPDIS SL PRN ×2 (01:10→09:54)
[2022-04-11 02:44] LABS: Basophils % 0.7 %; Eosinophils # 0.1 K/mcL (0.0-0.6); Eosinophils % 3.1 %; Hematocrit 44.6 % (35.3-44.9); Hemoglobin 14.9 g/dL (11.5-15.4); Immature Granulocytes % 0.2 % (0-4); Mean Corpuscular HGB Conc 33.4 g/dL (31.6-35.5); Mean Corpuscular Hemoglobin 31.4 pg (28.0-33.3); Mean Corpuscular Volume 94.1 fL (83.0-100.0); Mean Platelet Volume 9.6 fL (9.4-12.4); Monocytes # 0.4 K/mcL (0.0-1.3); Monocytes % 7.8 %; Platelet Count 217 K/mcL (140-400); Red Blood Count 4.74 M/mcL (3.82-4.97); Segmented Neutrophils % 44.2 %; White Blood Count 4.5 K/mcL (4.3-11.1)
[2022-04-11 03:01] LABS: BUN/Creatinine Ratio 22 (6-26); Blood Urea Nitrogen 12 mg/dL (6-20); Calcium 8.3 mg/dL (8.6-10.3); Carbon Dioxide 26 mEq/L (23-29); Chloride 107 mEq/L (98-107); Chol/HDL Ratio 3.4 (0-4.9); Cholesterol 117 mg/dL (< 200); Glucose 95 mg/dL (70-105); HDL Cholesterol 34 mg/dL (40-59); LDL Cholesterol,Calculated 61 mg/dL (< 100); Magnesium 2.1 mg/dL (1.6-2.6); Osmolality,Calculated 288 (280-300); Potassium 3.3 mEq/L (3.5-5.1); Sodium 139 mEq/L (136-145); Triglycerides 112 mg/dL (< 150); Troponin I < 0.03 ng/mL (< 0.04); eGFR For African Americans > 60 (> 60); eGFR For Non-African Americans > 60 (> 60)
[2022-04-11 04:07] LABS: Estimated Average Glucose 128 mg/dl; Hemoglobin A1C 6.1 %
[2022-04-11] MEDS: hydrALAZINE 25 MG TABLET PO SCH ×3 (08:19→20:28)
[2022-04-11] MEDS: Spironolactone 25 MG TABLET PO SCH ×2 (08:20→20:29)
[2022-04-11] MEDS: cloNIDine HCL 0.1 MG TABLET PO SCH ×3 (08:20→20:28)
[2022-04-11] MEDS: Cyanocobalamin (B-12) 1,000 MCG TABLET PO SCH (08:20)
[2022-04-11] MEDS: aMILoride 5 MG TABLET PO SCH (08:21)
[2022-04-11] MEDS: Cholecalciferol (D-3) 1,000 UNIT (25MCG) TABLET PO SCH (08:21)
[2022-04-11] MEDS: *HR* OxyCODONE/APAP 7.5/325 TABLET PO PRN (08:21)
[2022-04-11] MEDS: Aspirin Enteric Coated 81 MG Tablet PO SCH (08:21)
[2022-04-11] MEDS: clonazePAM 1 MG TABLET PO PRN ×2 (08:22→20:28)
[2022-04-11] MEDS ORDERED: amLODIPine 5 MG TABLET PO SCH (09:00)
[2022-04-11] MEDS: Acetaminophen/Butalbital/CaffeineTABLET PO PRN (11:15)
[2022-04-11] MEDS: Metoprolol XL (24 HR) Succ 25 MG TAB.ER.24H PO SCH (14:59)
[2022-04-11] MEDS: *HR* Heparin 5,000 UNIT/ML VIAL SQ SCH (18:48)
[2022-04-11] MEDS: *HR* OxyCODONE/APAP 10/325 TABLET PO PRN (18:51)
[2022-04-11] MEDS: Melatonin 3 MG TABLET PO PRN (20:28)
[2022-04-12 03:14] LABS: Basophils % 0.6 %; Eosinophils # 0.1 K/mcL (0.0-0.6); Eosinophils % 1.6 %; Hemoglobin 14.1 g/dL (11.5-15.4); Immature Granulocytes % 0.2 % (0-4); Lymphocytes # 1.7 K/mcL (0.6-4.6); Lymphocytes % 34.3 %; Mean Corpuscular HGB Conc 32.8 g/dL (31.6-35.5); Mean Corpuscular Hemoglobin 30.8 pg (28.0-33.3); Mean Corpuscular Volume 93.9 fL (83.0-100.0); Mean Platelet Volume 9.8 fL (9.4-12.4); Monocytes # 0.3 K/mcL (0.0-1.3); Monocytes % 6.3 %; Neutrophils # 2.9 K/mcL (1.6-8.9); Platelet Count 209 K/mcL (140-400); Red Blood Count 4.58 M/mcL (3.82-4.97); Red Cell Distribution Width 12.2 % (11.5-14.5); White Blood Count 5.1 K/mcL (4.3-11.1)
[2022-04-12 03:42] LABS: BUN/Creatinine Ratio 19 (6-26); Blood Urea Nitrogen 13 mg/dL (6-20); Calcium 8.7 mg/dL (8.6-10.3); Carbon Dioxide 28 mEq/L (23-29); Chloride 106 mEq/L (98-107); Glucose 119 mg/dL (70-105); Osmolality,Calculated 285 (280-300); Potassium 3.8 mEq/L (3.5-5.1); Sodium 137 mEq/L (136-145); eGFR For African Americans > 60 (> 60); eGFR For Non-African Americans > 60 (> 60)
[2022-04-12] MEDS: *HR* Heparin 5,000 UNIT/ML VIAL SQ SCH ×2 (05:21→17:26)
[2022-04-12] MEDS: *HR* HYDROmorphone 2 MG/ML SYRINGE IVP PRN ×4 (05:21→21:40)
[2022-04-12] MEDS: Spironolactone 25 MG TABLET PO SCH ×2 (08:35→20:01)
[2022-04-12] MEDS: cloNIDine HCL 0.1 MG TABLET PO SCH ×3 (08:36→20:01)
[2022-04-12] MEDS: Cyanocobalamin (B-12) 1,000 MCG TABLET PO SCH (08:36)
[2022-04-12] MEDS: Aspirin Enteric Coated 81 MG Tablet PO SCH (08:36)
[2022-04-12] MEDS: aMILoride 5 MG TABLET PO SCH (08:36)
[2022-04-12] MEDS: Metoprolol XL (24 HR) Succ 25 MG TAB.ER.24H PO SCH ×2 (08:36→21:39)
[2022-04-12] MEDS: hydrALAZINE 25 MG TABLET PO SCH ×3 (08:37→20:01)
[2022-04-12] MEDS: Cholecalciferol (D-3) 1,000 UNIT (25MCG) TABLET PO SCH (08:37)
[2022-04-12] MEDS: Acetaminophen/Butalbital/CaffeineTABLET PO PRN (08:40)
[2022-04-12] MEDS: *HR* OxyCODONE/APAP 10/325 TABLET PO PRN ×2 (08:40→20:01)
[2022-04-12 10:44] LABS: Magnesium 1.7 mg/dL (1.6-2.6)
[2022-04-12] MEDS: Ondansetron ODT 4 MG TAB.RAPDIS SL PRN (11:55)
[2022-04-12] MEDS: clonazePAM 1 MG TABLET PO PRN ×2 (14:29→22:41)
[2022-04-12] MEDS ORDERED: CloNIDine Patch 0.1 MG PATCH (WEEKLY) TD SCH (17:00)
[2022-04-12] MEDS: Melatonin 3 MG TABLET PO PRN (22:41)
[2022-04-13] MEDS: Acetaminophen/Butalbital/CaffeineTABLET PO PRN ×3 (03:45→20:59)
[2022-04-13] MEDS: *HR* HYDROmorphone 2 MG/ML SYRINGE IVP PRN ×5 (03:46→23:16)
[2022-04-13 04:27] LABS: Basophils # 0.1 K/mcL (0.0-0.2); Eosinophils # 0.1 K/mcL (0.0-0.6); Eosinophils % 2.2 %; Hematocrit 40.7 % (35.3-44.9); Hemoglobin 13.5 g/dL (11.5-15.4); Immature Granulocytes % 0.2 % (0-4); Lymphocytes # 2.1 K/mcL (0.6-4.6); Mean Corpuscular HGB Conc 33.2 g/dL (31.6-35.5); Mean Corpuscular Hemoglobin 31.5 pg (28.0-33.3); Mean Corpuscular Volume 95.1 fL (83.0-100.0); Mean Platelet Volume 9.8 fL (9.4-12.4); Monocytes # 0.4 K/mcL (0.0-1.3); Monocytes % 8.3 %; Neutrophils # 2.4 K/mcL (1.6-8.9); Platelet Count 200 K/mcL (140-400); Red Blood Count 4.28 M/mcL (3.82-4.97); Red Cell Distribution Width 12.4 % (11.5-14.5); Segmented Neutrophils % 46.3 %; White Blood Count 5.1 K/mcL (4.3-11.1)
[2022-04-13] MEDS: *HR* Heparin 5,000 UNIT/ML VIAL SQ SCH ×2 (05:24→17:08)
[2022-04-13 05:34] LABS: BUN/Creatinine Ratio 25 (6-26); Blood Urea Nitrogen 14 mg/dL (6-20); Calcium 8.8 mg/dL (8.6-10.3); Carbon Dioxide 26 mEq/L (23-29); Chloride 104 mEq/L (98-107); Glucose 92 mg/dL (70-105); Osmolality,Calculated 282 (280-300); Potassium 4.2 mEq/L (3.5-5.1); Sodium 136 mEq/L (136-145); eGFR For African Americans > 60 (> 60); eGFR For Non-African Americans > 60 (> 60)
[2022-04-13] MEDS: *HR* OxyCODONE/APAP 10/325 TABLET PO PRN ×2 (07:05→17:11)
[2022-04-13] MEDS: aMILoride 5 MG TABLET PO SCH (08:20)
[2022-04-13] MEDS: cloNIDine HCL 0.1 MG TABLET PO SCH ×3 (08:20→20:59)
[2022-04-13] MEDS: Cyanocobalamin (B-12) 1,000 MCG TABLET PO SCH (08:20)
[2022-04-13] MEDS: Ondansetron ODT 4 MG TAB.RAPDIS SL PRN ×2 (08:21→21:00)
[2022-04-13] MEDS: Metoprolol XL (24 HR) Succ 25 MG TAB.ER.24H PO SCH ×2 (08:21→21:03)
[2022-04-13] MEDS: Spironolactone 25 MG TABLET PO SCH ×2 (08:21→21:01)
[2022-04-13] MEDS: Aspirin Enteric Coated 81 MG Tablet PO SCH (08:22)
[2022-04-13] MEDS: hydrALAZINE 25 MG TABLET PO SCH ×3 (08:22→21:01)
[2022-04-13] MEDS: Cholecalciferol (D-3) 1,000 UNIT (25MCG) TABLET PO SCH (08:23)
[2022-04-14 03:29] LABS: Basophils # 0.1 K/mcL (0.0-0.2); Eosinophils # 0.1 K/mcL (0.0-0.6); Eosinophils % 2.4 %; Hematocrit 42.3 % (35.3-44.9); Hemoglobin 13.6 g/dL (11.5-15.4); Immature Granulocytes % 0.4 % (0-4); Lymphocytes # 1.9 K/mcL (0.6-4.6); Lymphocytes % 37.6 %; Mean Corpuscular HGB Conc 32.2 g/dL (31.6-35.5); Mean Corpuscular Hemoglobin 30.3 pg (28.0-33.3); Mean Corpuscular Volume 94.2 fL (83.0-100.0); Monocytes # 0.4 K/mcL (0.0-1.3); Monocytes % 8.6 %; Neutrophils # 2.6 K/mcL (1.6-8.9); Platelet Count 212 K/mcL (140-400); Red Blood Count 4.49 M/mcL (3.82-4.97); Red Cell Distribution Width 12.2 % (11.5-14.5); White Blood Count 5.1 K/mcL (4.3-11.1)
[2022-04-14 03:54] LABS: BUN/Creatinine Ratio 27 (6-26); Blood Urea Nitrogen 19 mg/dL (6-20); Carbon Dioxide 26 mEq/L (23-29); Chloride 102 mEq/L (98-107); Glucose 95 mg/dL (70-105); Magnesium 1.7 mg/dL (1.6-2.6); Osmolality,Calculated 280 (280-300); Potassium 4.6 mEq/L (3.5-5.1); Sodium 134 mEq/L (136-145); eGFR For African Americans > 60 (> 60); eGFR For Non-African Americans > 60 (> 60)
[2022-04-14] MEDS: *HR* HYDROmorphone 2 MG/ML SYRINGE IVP PRN ×3 (05:19→23:40)
[2022-04-14] MEDS ORDERED: Regadenoson 0.4 MG/5 ML SYRINGE IVP ONE (06:20)
[2022-04-14] MEDS: hydrALAZINE 25 MG TABLET PO SCH ×4 (09:43→20:13)
[2022-04-14] MEDS: aMILoride 5 MG TABLET PO SCH ×2 (09:43→12:47)
[2022-04-14] MEDS: Aspirin Enteric Coated 81 MG Tablet PO SCH ×2 (09:43→12:47)
[2022-04-14] MEDS: cloNIDine HCL 0.1 MG TABLET PO SCH ×4 (09:43→20:13)
[2022-04-14] MEDS: Spironolactone 25 MG TABLET PO SCH ×3 (09:43→20:12)
[2022-04-14] MEDS: Cholecalciferol (D-3) 1,000 UNIT (25MCG) TABLET PO SCH ×2 (09:44→12:48)
[2022-04-14] MEDS: Cyanocobalamin (B-12) 1,000 MCG TABLET PO SCH ×2 (09:44→12:47)
[2022-04-14] MEDS: Metoprolol XL (24 HR) Succ 25 MG TAB.ER.24H PO SCH ×3 (09:44→20:13)
[2022-04-14] MEDS: Acetaminophen/Butalbital/CaffeineTABLET PO PRN (12:46)
[2022-04-14] MEDS ORDERED: 0.9 % Sodium Chloride 500 ML ONE (13:36)
[2022-04-14] MEDS ORDERED: 0.9 % Sodium Chloride 1,000 ML ONE (13:36)
[2022-04-14] MEDS ORDERED: *HR* FentaNYL (PF) 100 MCG/2 ML VIAL ONE ×2 (14:08→15:50)
[2022-04-14] MEDS ORDERED: *HR* Midazolam HCl 2 MG/2 ML VIAL ONE ×3 (14:08→16:32)
[2022-04-14] MEDS ORDERED: Iopamidol - 300 100 ML INFUS..BTL ONE ×2 (15:05→15:54)
[2022-04-14] MEDS ORDERED: Nitroglycerin 1,000 MCG/5 ML VIAL IV ONE (15:42)
[2022-04-14] MEDS: Ondansetron ODT 4 MG TAB.RAPDIS SL PRN (18:57)
[2022-04-14] MEDS ORDERED: Ondansetron 4 MG/2 ML VIAL IVP ONE ×2 (19:03→20:00)
[2022-04-14] MEDS: clonazePAM 1 MG TABLET PO PRN (23:40)
[2022-04-14] MEDS: ceFAZolin 1,000 MG in 0.9 % Sodium Chloride 100 ML IVPB SCH (23:58)
[2022-04-15 02:58] LABS: Basophils % 0.4 %; Eosinophils % 0.1 %; Hematocrit 43.2 % (35.3-44.9); Immature Granulocytes % 0.4 % (0-4); Lymphocytes % 9.7 %; Mean Corpuscular HGB Conc 32.4 g/dL (31.6-35.5); Mean Corpuscular Hemoglobin 30.7 pg (28.0-33.3); Mean Corpuscular Volume 94.7 fL (83.0-100.0); Mean Platelet Volume 10.2 fL (9.4-12.4); Monocytes # 0.6 K/mcL (0.0-1.3); Monocytes % 5.8 %; Neutrophils # 8.5 K/mcL (1.6-8.9); Platelet Count 211 K/mcL (140-400); Red Blood Count 4.56 M/mcL (3.82-4.97); Red Cell Distribution Width 12.5 % (11.5-14.5); Segmented Neutrophils % 83.6 %
[2022-04-15 03:02] LABS: White Blood Count 10.2 K/mcL (4.3-11.1)
[2022-04-15 03:10] LABS: BUN/Creatinine Ratio 26 (6-26); Blood Urea Nitrogen 18 mg/dL (6-20); Calcium 9.2 mg/dL (8.6-10.3); Carbon Dioxide 24 mEq/L (23-29); Chloride 100 mEq/L (98-107); Glucose 105 mg/dL (70-105); Magnesium 1.6 mg/dL (1.6-2.6); Osmolality,Calculated 276 (280-300); Potassium 4.9 mEq/L (3.5-5.1); Sodium 132 mEq/L (136-145); eGFR For African Americans > 60 (> 60); eGFR For Non-African Americans > 60 (> 60)
[2022-04-15] MEDS: *HR* HYDROmorphone 2 MG/ML SYRINGE IVP PRN ×4 (03:42→20:58)
[2022-04-15] MEDS: Ondansetron ODT 4 MG TAB.RAPDIS SL PRN (03:42)
[2022-04-15] MEDS: ceFAZolin 1,000 MG in 0.9 % Sodium Chloride 100 ML IVPB SCH ×2 (08:43→14:52)
[2022-04-15] MEDS: hydrALAZINE 25 MG TABLET PO SCH ×3 (08:44→20:52)
[2022-04-15] MEDS: Spironolactone 25 MG TABLET PO SCH ×2 (08:44→20:52)
[2022-04-15] MEDS: cloNIDine HCL 0.1 MG TABLET PO SCH ×3 (08:44→20:53)
[2022-04-15] MEDS: aMILoride 5 MG TABLET PO SCH (08:44)
[2022-04-15] MEDS: Cholecalciferol (D-3) 1,000 UNIT (25MCG) TABLET PO SCH (08:44)
[2022-04-15] MEDS: Aspirin Enteric Coated 81 MG Tablet PO SCH (08:44)
[2022-04-15] MEDS: Cyanocobalamin (B-12) 1,000 MCG TABLET PO SCH (08:45)
[2022-04-15] MEDS: *HR* OxyCODONE/APAP 10/325 TABLET PO PRN (08:45)
[2022-04-15] MEDS: Metoprolol XL (24 HR) Succ 25 MG TAB.ER.24H PO SCH ×2 (08:46→20:53)
[2022-04-15] MEDS: clonazePAM 1 MG TABLET PO PRN ×2 (08:52→20:59)
[2022-04-15] MEDS ORDERED: Ipratropium/Albuterol Neb 3 ML IH PRN (17:36)
[2022-04-16] MEDS: *HR* OxyCODONE/APAP 7.5/325 TABLET PO PRN ×2 (05:31→13:59)
[2022-04-16] MEDS: Ondansetron ODT 4 MG TAB.RAPDIS SL PRN (05:31)
[2022-04-16 06:01] LABS: Hematocrit 40.5 % (35.3-44.9); Hemoglobin 13.2 g/dL (11.5-15.4); Mean Corpuscular HGB Conc 32.6 g/dL (31.6-35.5); Mean Corpuscular Hemoglobin 30.5 pg (28.0-33.3); Mean Corpuscular Volume 93.5 fL (83.0-100.0); Mean Platelet Volume 10.1 fL (9.4-12.4); Platelet Count 204 K/mcL (140-400); Red Blood Count 4.33 M/mcL (3.82-4.97); Red Cell Distribution Width 12.1 % (11.5-14.5); White Blood Count 9.4 K/mcL (4.3-11.1)
[2022-04-16 06:23] LABS: BUN/Creatinine Ratio 27 (6-26); Blood Urea Nitrogen 18 mg/dL (6-20); Calcium 8.8 mg/dL (8.6-10.3); Carbon Dioxide 25 mEq/L (23-29); Chloride 98 mEq/L (98-107); Glucose 121 mg/dL (70-105); Magnesium 1.7 mg/dL (1.6-2.6); Osmolality,Calculated 275 (280-300); Potassium 4.5 mEq/L (3.5-5.1); Sodium 131 mEq/L (136-145); eGFR For African Americans > 60 (> 60); eGFR For Non-African Americans > 60 (> 60)
[2022-04-16] MEDS: hydrALAZINE 25 MG TABLET PO SCH ×3 (09:02→21:43)
[2022-04-16] MEDS: cloNIDine HCL 0.1 MG TABLET PO SCH ×3 (09:02→21:44)
[2022-04-16] MEDS: cephALEXin 500 MG CAPSULE PO SCH ×2 (09:02→21:44)
[2022-04-16] MEDS: Aspirin Enteric Coated 81 MG Tablet PO SCH (09:02)
[2022-04-16] MEDS: Cholecalciferol (D-3) 1,000 UNIT (25MCG) TABLET PO SCH (09:02)
[2022-04-16] MEDS: Cyanocobalamin (B-12) 1,000 MCG TABLET PO SCH (09:02)
[2022-04-16] MEDS: Metoprolol XL (24 HR) Succ 25 MG TAB.ER.24H PO SCH ×2 (09:03→21:44)
[2022-04-16] MEDS: Spironolactone 25 MG TABLET PO SCH ×2 (09:03→21:44)
[2022-04-16] MEDS: *HR* HYDROmorphone 2 MG/ML SYRINGE IVP PRN (09:07)
[2022-04-16] MEDS: Acetaminophen/Butalbital/CaffeineTABLET PO PRN (11:52)
[2022-04-16] MEDS: 0.9 % Sodium Chloride 1,000 ML IVC SCH (13:59)
[2022-04-16] MEDS: clonazePAM 1 MG TABLET PO PRN ×2 (16:18→21:44)
[2022-04-16 16:28] LABS: Basophils # 0.1 K/mcL (0.0-0.2); Basophils % 0.6 %; Eosinophils # 0.1 K/mcL (0.0-0.6); Eosinophils % 0.9 %; Hematocrit 38.6 % (35.3-44.9); Hemoglobin 12.7 g/dL (11.5-15.4); Immature Granulocytes % 0.2 % (0-4); Lymphocytes # 1.5 K/mcL (0.6-4.6); Lymphocytes % 17.7 %; Mean Corpuscular HGB Conc 32.9 g/dL (31.6-35.5); Mean Corpuscular Hemoglobin 30.6 pg (28.0-33.3); Mean Platelet Volume 9.8 fL (9.4-12.4); Monocytes # 0.9 K/mcL (0.0-1.3); Monocytes % 10.8 %; Platelet Count 206 K/mcL (140-400); Red Blood Count 4.15 M/mcL (3.82-4.97); Red Cell Distribution Width 12.1 % (11.5-14.5); Segmented Neutrophils % 69.8 %; White Blood Count 8.5 K/mcL (4.3-11.1)
[2022-04-16 16:40] LABS: INR 1.3; Prothrombin Time 14.1 Seconds (9.4-12.1)
[2022-04-16] MEDS: Melatonin 3 MG TABLET PO PRN (21:44)
[2022-04-17] MEDS: 0.9 % Sodium Chloride 1,000 ML IVC SCH (00:14)
[2022-04-17] MEDS: *HR* OxyCODONE/APAP 7.5/325 TABLET PO PRN ×3 (00:35→21:40)
[2022-04-17] MEDS: *HR* HYDROmorphone 2 MG/ML SYRINGE IVP PRN (06:06)
[2022-04-17 07:40] LABS: BUN/Creatinine Ratio 32 (6-26); Blood Urea Nitrogen 17 mg/dL (6-20); Calcium 8.2 mg/dL (8.6-10.3); Carbon Dioxide 27 mEq/L (23-29); Chloride 102 mEq/L (98-107); Glucose 109 mg/dL (70-105); Osmolality,Calculated 278 (280-300); Potassium 3.7 mEq/L (3.5-5.1); Sodium 133 mEq/L (136-145); eGFR For African Americans > 60 (> 60); eGFR For Non-African Americans > 60 (> 60)
[2022-04-17] MEDS ORDERED: Lidocaine/EPI 1:200k 1% PF 10 ML VIAL INFILT ONE (08:24)
[2022-04-17] MEDS: Spironolactone 25 MG TABLET PO SCH ×2 (08:58→21:40)
[2022-04-17] MEDS: cephALEXin 500 MG CAPSULE PO SCH ×2 (08:58→21:41)
[2022-04-17] MEDS: hydrALAZINE 25 MG TABLET PO SCH ×3 (08:58→21:40)
[2022-04-17] MEDS: Metoprolol XL (24 HR) Succ 25 MG TAB.ER.24H PO SCH ×2 (08:58→21:40)
[2022-04-17] MEDS: cloNIDine HCL 0.1 MG TABLET PO SCH ×3 (08:58→21:41)
[2022-04-17] MEDS: Cholecalciferol (D-3) 1,000 UNIT (25MCG) TABLET PO SCH (08:59)
[2022-04-17] MEDS: Cyanocobalamin (B-12) 1,000 MCG TABLET PO SCH (08:59)
[2022-04-17] MEDS: Aspirin Enteric Coated 81 MG Tablet PO SCH (09:13)
[2022-04-17] MEDS ORDERED: *HR* FentaNYL (PF) 100 MCG/2 ML VIAL ONE (09:21)
[2022-04-17] MEDS ORDERED: *HR* FentaNYL (PF) 100 MCG/2 ML VIAL IVP ONE (09:33)
[2022-04-17] MEDS: Ondansetron ODT 4 MG TAB.RAPDIS SL PRN (11:41)
[2022-04-17] MEDS ORDERED: *HR* HYDROmorphone (PF) 1 MG/ML SYRINGE IVP ONE ×2 (14:42→18:03)
[2022-04-17] MEDS: Melatonin 3 MG TABLET PO PRN (21:40)
[2022-04-17] MEDS: clonazePAM 1 MG TABLET PO PRN (21:40)
[2022-04-18] MEDS: *HR* HYDROmorphone 2 MG/ML SYRINGE IVP PRN ×4 (03:02→20:35)
[2022-04-18 05:40] LABS: BUN/Creatinine Ratio 27 (6-26); Blood Urea Nitrogen 13 mg/dL (6-20); Calcium 8.6 mg/dL (8.6-10.3); Carbon Dioxide 30 mEq/L (23-29); Chloride 98 mEq/L (98-107); Glucose 97 mg/dL (70-105); Osmolality,Calculated 276 (280-300); Potassium 3.7 mEq/L (3.5-5.1); Sodium 133 mEq/L (136-145); eGFR For African Americans > 60 (> 60); eGFR For Non-African Americans > 60 (> 60)
[2022-04-18] MEDS: Metoprolol XL (24 HR) Succ 25 MG TAB.ER.24H PO SCH ×2 (08:24→20:25)
[2022-04-18] MEDS: cephALEXin 500 MG CAPSULE PO SCH ×2 (08:24→20:26)
[2022-04-18] MEDS: cloNIDine HCL 0.1 MG TABLET PO SCH ×3 (08:24→20:26)
[2022-04-18] MEDS: hydrALAZINE 25 MG TABLET PO SCH ×3 (08:25→20:25)
[2022-04-18] MEDS: Cyanocobalamin (B-12) 1,000 MCG TABLET PO SCH (08:25)
[2022-04-18] MEDS: Cholecalciferol (D-3) 1,000 UNIT (25MCG) TABLET PO SCH (08:25)
[2022-04-18] MEDS: Aspirin Enteric Coated 81 MG Tablet PO SCH (08:25)
[2022-04-18] MEDS: Sennosides/Docusate Sodium TABLET PO SCH ×2 (08:25→20:26)
[2022-04-18] MEDS: Spironolactone 25 MG TABLET PO SCH ×2 (08:25→20:26)
[2022-04-18] MEDS: Acetaminophen/Butalbital/CaffeineTABLET PO PRN (09:56)
[2022-04-18] MEDS: Ondansetron ODT 4 MG TAB.RAPDIS SL PRN (09:56)
[2022-04-18] MEDS: clonazePAM 1 MG TABLET PO PRN ×2 (12:01→20:35)
[2022-04-18] MEDS: *HR* OxyCODONE/APAP 10/325 TABLET PO PRN (12:02)
[2022-04-18] MEDS ORDERED: Ketorolac 30 MG/ML VIAL IVP PRN (14:06)
[2022-04-19] MEDS: *HR* HYDROmorphone 2 MG/ML SYRINGE IVP PRN ×4 (01:33→19:31)
[2022-04-19] MEDS: Ondansetron ODT 4 MG TAB.RAPDIS SL PRN (01:33)
[2022-04-19 01:56] LABS: BUN/Creatinine Ratio 28 (6-26); Blood Urea Nitrogen 17 mg/dL (6-20); Calcium 8.6 mg/dL (8.6-10.3); Carbon Dioxide 32 mEq/L (23-29); Chloride 97 mEq/L (98-107); Glucose 120 mg/dL (70-105); Osmolality,Calculated 281 (280-300); Potassium 3.5 mEq/L (3.5-5.1); Sodium 134 mEq/L (136-145); eGFR For African Americans > 60 (> 60); eGFR For Non-African Americans > 60 (> 60)
[2022-04-19] MEDS: *HR* OxyCODONE/APAP 10/325 TABLET PO PRN ×3 (06:17→22:08)
[2022-04-19] MEDS: cephALEXin 500 MG CAPSULE PO SCH ×2 (08:01→20:27)
[2022-04-19] MEDS: Cyanocobalamin (B-12) 1,000 MCG TABLET PO SCH (08:01)
[2022-04-19] MEDS: Aspirin Enteric Coated 81 MG Tablet PO SCH (08:02)
[2022-04-19] MEDS: Sennosides/Docusate Sodium TABLET PO SCH ×2 (08:02→20:27)
[2022-04-19] MEDS: hydrALAZINE 25 MG TABLET PO SCH ×3 (08:02→20:28)
[2022-04-19] MEDS: Metoprolol XL (24 HR) Succ 25 MG TAB.ER.24H PO SCH ×2 (08:02→20:27)
[2022-04-19] MEDS: Spironolactone 25 MG TABLET PO SCH ×2 (08:02→20:27)
[2022-04-19] MEDS: cloNIDine HCL 0.1 MG TABLET PO SCH ×3 (08:03→20:27)
[2022-04-19] MEDS: Cholecalciferol (D-3) 1,000 UNIT (25MCG) TABLET PO SCH (08:03)
[2022-04-19] MEDS: Acetaminophen/Butalbital/CaffeineTABLET PO PRN (09:09)
[2022-04-19] MEDS: clonazePAM 1 MG TABLET PO PRN (20:28)
[2022-04-20] MEDS: *HR* HYDROmorphone 2 MG/ML SYRINGE IVP PRN ×2 (03:02→07:55)
[2022-04-20 03:47] LABS: BUN/Creatinine Ratio 33 (6-26); Blood Urea Nitrogen 17 mg/dL (6-20); Calcium 8.6 mg/dL (8.6-10.3); Carbon Dioxide 32 mEq/L (23-29); Chloride 98 mEq/L (98-107); Glucose 104 mg/dL (70-105); Osmolality,Calculated 280 (280-300); Potassium 3.8 mEq/L (3.5-5.1); Sodium 134 mEq/L (136-145); eGFR For African Americans > 60 (> 60); eGFR For Non-African Americans > 60 (> 60)
[2022-04-20] MEDS: *HR* OxyCODONE/APAP 10/325 TABLET PO PRN ×2 (05:54→11:56)
[2022-04-20] MEDS: Sennosides/Docusate Sodium TABLET PO SCH (07:56)
[2022-04-20] MEDS: Metoprolol XL (24 HR) Succ 25 MG TAB.ER.24H PO SCH (07:56)
[2022-04-20] MEDS: Cyanocobalamin (B-12) 1,000 MCG TABLET PO SCH (07:56)
[2022-04-20] MEDS: cloNIDine HCL 0.1 MG TABLET PO SCH ×2 (07:56→15:23)
[2022-04-20] MEDS: Cholecalciferol (D-3) 1,000 UNIT (25MCG) TABLET PO SCH (07:56)
[2022-04-20] MEDS: cephALEXin 500 MG CAPSULE PO SCH ×2 (07:56→17:05)
[2022-04-20] MEDS: hydrALAZINE 25 MG TABLET PO SCH ×2 (07:56→15:23)
[2022-04-20] MEDS: Aspirin Enteric Coated 81 MG Tablet PO SCH (07:57)
[2022-04-20] MEDS: Spironolactone 25 MG TABLET PO SCH (07:58)
[2022-04-20 11:58] VITALS: TEMP 98
[2022-04-20] MEDS ORDERED: *HR* HYDROmorphone (PF) 1 MG/ML SYRINGE IVP ONE (15:58)
[2022-04-20 16:17] VITALS: BP 149/93; PULSE 71
[2022-04-20 16:41] VITALS: O2SAT 100
== END 2022-04-20 18:44 | disposition home or self-care (01) | DRG 242 ==
LOC: 2NNU 13:44 → EMEROOARM 13:44 → SUATTDRO 18:37 → 2NNU 21:01 → SUATTDRO 04-12 07:54 → 2ANU 04-12 17:13
PROVIDERS: ADMIT Family Medicine; ATTEND Internal Medicine